=== PATIENT | female | born 1960 | race Caucasian/White ===

== ENCOUNTER → 2017-08-13 10:08 | Outpatient (CLI) | payer SELFPAY ==
--- NOTE | 2017-08-13 10:22 | RAD_ITS ---
STUDY: X-RAY - LEFT HAND REASON FOR EXAM: Female, 56 years old. Inflammatory polyarthropathy. TECHNIQUE: 3 view(s) of the hand. COMPARISON: None. FINDINGS: There is joint space narrowing of the radiocarpal articulation consistent with degenerative arthrosis. Erosive changes involving the ulnar styloid. This is suggestive of an old avulsion fracture. Normal visualized carpal bones. Normal carpal articulations Normal carpometacarpal articulation of the thumb. Normal second through fifth carpometacarpal joints. Erosive changes involving the distal portion of the third metacarpal. Normal metacarpophalangeal joint of the thumb. Joint space narrowing and subluxation of the first metacarpophalangeal joint. Normal proximal and distal phalanges of the thumb. Marked degree of joint space narrowing with erosive changes at the third metacarpophalangeal joint. There is diffuse articular joint space narrowing of the proximal and distal interphalangeal joints of the second through fifth fingers, but without erosive changes or periarticular soft tissue swelling. Flexion deformity at the distal interphalangeal joint of the fourth digit. Soft tissue swelling. 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 Flexion deformity of the distal interphalangeal joint of the fourth digit. Soft tissue swelling. Electronically Signed: Fili Ferrer MD at 15:40 EDT Tel [phone], Service support ,
--- NOTE | 2017-08-13 10:22 | RAD_ITS ---
STUDY: X-RAY - RIGHT HAND REASON FOR EXAM: Female, 56 years old. Inflammatory polyarthropathy TECHNIQUE: 3 view(s) of the hand. COMPARISON: None. FINDINGS: Normal radiocarpal articulation. Normal distal radioulnar joint. Normal visualized carpal bones. Normal carpal articulations Normal carpometacarpal articulation of the thumb. Normal second through fifth carpometacarpal joints. Normal metacarpi. Normal metacarpophalangeal joint of the thumb. Normal interphalangeal joint of the thumb. Normal proximal and distal phalanges of the thumb. Normal metacarpophalangeal joints of the second through fifth fingers. There is joint space narrowing and juxta-articular erosions of the proximal interphalangeal joint of the fourth digit. Questionable similar juxta-articular erosions noted within the second digit with preservation of the joint space. Distal interphalangeal joints are unremarkable. Soft tissue swelling of the proximal second and fourth digits. RAD/Hand Min 3 Views IMPRESSION: Joint space narrowing with juxta-articular erosions of the proximal interphalangeal joint of the ring finger with associated proximal soft tissue swelling, suggesting an inflammatory arthropathy, with similar change, to a lesser degree, seen within the second digit. Electronically Signed: Aleksander Mckeon MD at 3:37 EDT Tel , Service support ,
--- NOTE | 2017-08-13 10:35 | RAD_ITS ---
STUDY: X-RAY - PELVIS REASON FOR EXAM: Female, 56 years old. Inflammatory polyarthropathy. TECHNIQUE: One view of the pelvis was obtained. COMPARISON: None. FINDINGS: There is a non-specific bowel gas pattern. Normal visualized soft tissue structures. There is narrowing with cortical sclerosis and osteophyte formation of the sacroiliac joint consistent with degenerative osteoarthritic changes. Normal visualized bilateral superior and inferior pubic rami. There is narrowing with sclerosis of the pubic symphysis. Normal ischial tuberosities. Normal visualized right femoral head. Normal right acetabulum. There is mild articular joint space narrowing of the right hip. Normal visualized left femoral head. Normal left acetabulum. There is mild articular joint space narrowing of the left hip. RAD/Pelvis 1 or 2 Views IMPRESSION: Degenerative changes of the sacroiliac joints worse on the left side. Mild degree of osteoarthritis of the hip joints bilaterally. Electronically Signed: Fili Ferrer MD at 14:32 EDT Tel [phone], Service support ,
[2017-08-13 12:16] LABS: Erythrocyte Sedimentation Rate 56 mm/hr (0-30)
[2017-08-13 12:17] LABS: Absolute Lymphocyte Count 1.21 X10^3/ul (0.83-4.51); Absolute Neutrophil Count 5.6 X10^3/uL (2.0-7.7); Basophil# 0.04 X10^3/uL; Basophil% 0.5 % (0-1); Eosinophil# 0.12 X10^3/uL; Eosinophils% 1.4 % (0-5); Hemoglobin 12.8 g/dl (12.0-15.0); Lymphocyte # 1.21 X10^3/ul (4.0); Lymphocyte % 14.5 % (19-41); Mean Corp Hgb Conc 31.2 g/gl (32-36); Mean Corpuscular Hgb 25.7 pg (27.0-32.0); Mean Corpuscular Volume 82.2 fL (81-99); Mean Platelet Vol. 8.7 fl (6.2-12.0); Monocyte# 1.28 X10^3/uL; Monocyte% 15.3 % (0-10); Neutrophil # 5.64 X10^3/uL (2.7-7.7); Neutrophil % 67.5 % (47-70); POSITIVE COUNT NO; POSITIVE DIFFERENTIAL NO; POSITIVE MORPHOLOGY NO; Platelet Count 280 K/mm3 (150-450); RBC Distribution Width CV 15.5 % (11.6-14.6); RBC Distribution Width SD 46.1 fl (35.1-43.9); Red Blood Count 4.99 M/mm3 (4.2-5.4); White Blood Count 8.4 K/mm3 (4.4-11.0)
[2017-08-13 12:58] LABS: ALB/GLOB Ratio 0.5 RATIO (0.9-2.4); AST(SGOT) 13 U/L (15-37); Alanine Aminotransfer ALT/SGPT 23 U/L (13-56); Albumin, Serum 3.4 g/dL (3.2-5.0); Alkaline Phosphatase 117 U/L (45-117); Anion Gap 9 (5-15); BUN 42 mg/dL (7-18); BUN/Creat Ratio 15.9 RATIO (10-20); Calcium,Total 14.6 mg/dL (8.5-10.1); Chloride 101 mmol/L (98-107); Creatinine, Serum 2.64 mg/dL (0.55-1.02); EST Glomerular Filtration Rate 20 mL/min (>60); Est Glom Filt Rate - Afr Amer 24 mL/min (>60); Globulin 6.4 g/dL (2.2-4.2); Glucose 85 mg/dL (74-106); Potassium 4.3 mmol/L (3.5-5.1); Protein, Total 9.8 g/dL (6.4-8.2); Rheumatoid Factor < 10.0 IU/mL (<15); Sodium Level 135 mmol/L (136-145)
[2017-08-13 14:09] LABS: PTHIN 34.3 pg/mL (18.4-80.1)
[2017-08-14 14:43] LABS: ANTINUCLEAR ANTIBODIES DIRECT Negative (Negative)
[2017-08-15 11:41] LABS: CCP IgG Antibodies 11 units (0-19); HEPATITIS B SURFACE AG Negative (Negative); Hep B Surface Antibodies Non Reactive (.); Hep C Antibodies <0.1 s/co ratio (0.0-0.9)
== END ==
PROVIDERS: Family Provider Family Medicine; PCP Family Medicine; Visit Provider Internal Medicine Rheumatology
DX: M06.4 Inflammatory polyarthropathy (principal); I10 Essential (primary) hypertension
CPT/HCPCS: 36415; 72170; 73130; 80053; 83970; 85025; 85652; 86038; 86140; 86200; 86431; 86706; 86803; 87340

== ENCOUNTER → 2017-09-19 11:28 | Outpatient (CLI) | payer OTHER, SELFPAY ==
[2017-09-19 14:18] LABS: Absolute Lymphocyte Count 0.64 X10^3/ul (0.83-4.51); Absolute Neutrophil Count 5.1 X10^3/uL (2.0-7.7); Basophil# 0.02 X10^3/uL; Basophil% 0.3 % (0-1); Eosinophil# 0.04 X10^3/uL; Eosinophils% 0.6 % (0-5); Hematocrit 35.1 % (37-47); Hemoglobin 10.8 g/dl (12.0-15.0); Lymphocyte # 0.64 X10^3/ul (4.0); Lymphocyte % 9.4 % (19-41); Mean Corp Hgb Conc 30.8 g/gl (32-36); Mean Corpuscular Hgb 25.7 pg (27.0-32.0); Mean Corpuscular Volume 83.6 fL (81-99); Mean Platelet Vol. 8.5 fl (6.2-12.0); Monocyte# 0.98 X10^3/uL; Monocyte% 14.4 % (0-10); Neutrophil # 5.07 X10^3/uL (2.7-7.7); Neutrophil % 74.4 % (47-70); Platelet Count 181 K/mm3 (150-450); RBC Distribution Width CV 15.4 % (11.6-14.6); RBC Distribution Width SD 47.3 fl (35.1-43.9); White Blood Count 6.8 K/mm3 (4.4-11.0)
[2017-09-19 14:19] LABS: POSITIVE COUNT NO; POSITIVE DIFFERENTIAL NO; POSITIVE MORPHOLOGY NO
[2017-09-19 15:45] LABS: ALB/GLOB Ratio 0.5 RATIO (0.9-2.4); AST(SGOT) 15 U/L (15-37); Alanine Aminotransfer ALT/SGPT 26 U/L (13-56); Albumin, Serum 2.8 g/dL (3.2-5.0); Alkaline Phosphatase 117 U/L (45-117); Anion Gap 11 (5-15); BUN 35 mg/dL (7-18); BUN/Creat Ratio 13.6 RATIO (10-20); Calcium,Total 14.4 mg/dL (8.5-10.1); Chloride 100 mmol/L (98-107); Creatinine, Serum 2.58 mg/dL (0.55-1.02); EST Glomerular Filtration Rate 20 mL/min (>60); Est Glom Filt Rate - Afr Amer 25 mL/min (>60); Globulin 5.6 g/dL (2.2-4.2); Glucose 98 mg/dL (74-106); Potassium 4.3 mmol/L (3.5-5.1); Protein, Total 8.4 g/dL (6.4-8.2); Sodium Level 136 mmol/L (136-145)
== END ==
PROVIDERS: Family Provider Family Medicine; PCP Family Medicine; Visit Provider Internal Medicine Rheumatology
DX: M06.4 Inflammatory polyarthropathy (principal); I10 Essential (primary) hypertension
CPT/HCPCS: 36415; 80053; 85025

== ENCOUNTER → 2017-11-21 11:06 | Outpatient (CLI) | payer OTHER, SELFPAY ==
[2017-11-21 12:17] LABS: Absolute Lymphocyte Count 0.64 X10^3/ul (0.83-4.51); Absolute Neutrophil Count 6.3 X10^3/uL (2.0-7.7); Basophil# 0.01 X10^3/uL; Basophil% 0.1 % (0-1); Differential Indicated SCAN CRITERIA MET; Eosinophil# 0.03 X10^3/uL; Eosinophils% 0.3 % (0-5); Hematocrit 27.9 % (37-47); Hemoglobin 8.6 g/dl (12.0-15.0); Lymphocyte # 0.64 X10^3/ul (4.0); Lymphocyte % 7.2 % (19-41); Mean Corp Hgb Conc 30.8 g/gl (32-36); Mean Corpuscular Hgb 25.8 pg (27.0-32.0); Mean Corpuscular Volume 83.8 fL (81-99); Mean Platelet Vol. 8.7 fl (6.2-12.0); Monocyte# 1.88 X10^3/uL; Monocyte% 21.1 % (0-10); Neutrophil # 6.31 X10^3/uL (2.7-7.7); Neutrophil % 71.1 % (47-70); POSITIVE COUNT NO; POSITIVE DIFFERENTIAL YES; POSITIVE MORPHOLOGY NO; Platelet Count 179 K/mm3 (150-450); RBC Distribution Width CV 16.5 % (11.6-14.6); RBC Distribution Width SD 50.2 fl (35.1-43.9); Red Blood Count 3.33 M/mm3 (4.2-5.4); White Blood Count 8.9 K/mm3 (4.4-11.0)
[2017-11-21 12:30] LABS: ALB/GLOB Ratio 0.4 RATIO (0.9-2.4); AST(SGOT) 12 U/L (15-37); Alanine Aminotransfer ALT/SGPT 16 U/L (13-56); Albumin, Serum 2.3 g/dL (3.2-5.0); Alkaline Phosphatase 121 U/L (45-117); Anion Gap 14 (5-15); BUN 36 mg/dL (7-18); BUN/Creat Ratio 10.5 RATIO (10-20); Calcium,Total 12.2 mg/dL (8.5-10.1); Chloride 96 mmol/L (98-107); Creatinine, Serum 3.43 mg/dL (0.55-1.02); EST Glomerular Filtration Rate 15 mL/min (>60); Est Glom Filt Rate - Afr Amer 18 mL/min (>60); Globulin 5.8 g/dL (2.2-4.2); Glucose 119 mg/dL (74-106); Protein, Total 8.1 g/dL (6.4-8.2); Sodium Level 130 mmol/L (136-145)
== END ==
PROVIDERS: Family Provider Family Medicine; PCP Family Medicine; Visit Provider Internal Medicine Rheumatology
DX: M06.09 Rheumatoid arthritis without rheumatoid factor, multiple sites (principal); Z79.899 Other long term (current) drug therapy; I10 Essential (primary) hypertension
CPT/HCPCS: 36415; 80053; 85025

== ENCOUNTER 2017-12-13 09:02 | Inpatient (IN) | payer OTHER, SELFPAY ==
[2017-12-13] VITALS (13 sets, daily range): BP systolic 105–139; BP diastolic 54–82; PULSE 90–109; RESP 14–22; TEMP 36.4–37.3; O2SAT 92–100; BMI 36.3; BMI 35.1
--- NOTE | 2017-12-13 09:25 | ED.VISSUMM ---
- ER Visit Summary Date of Service: 12/13/17 Chief Complaint: Weak and vomiting History of Present Illness: The patient is a 57 F who presents with weakness and vomiting. History is limited. When asked questions the patient just shrugs and nods to family members. She will answer very few direct questions with one-word answers. Family reports that she has had intermittent weakness and vomiting for a while. It is difficult to ascertain the duration of symptoms but they note that this is been worse over the past month. She had vomiting last weekend. She began vomiting again last night. They report 6-8 episodes of emesis over the last week. No diarrhea. The patient denies pain. No fevers. Family does note that she has had outpatient labs and has had problems with low sodium and high calcium and that they are not sure why but she has been referred to a hollow handle knife assembler. She saw her primary care physician last week and had labs at that time. Physical Examination: Afebrile heart rate 109 Examination limited as the patient is somewhat uncooperative. She would not roll onto her back and lay flat for proper exam. Heart regular rate and rhythm Lungs are clear Abdomen soft nontender and nondistended Generalized weakness no focal or lateralizing neurological deficits Alert Test Results: EKG shows sinus rhythm at a rate of 99. Laboratory studies are notable for hemoglobin of 7.0. Sodium 125, bicarb 17, BUN of 53, creatinine 2.96, calcium 11.9. Liver function shows total bilirubin 1.1 and alkaline phosphatase 377. Chest x-ray showed hilar lymphadenopathy and radiology recommended a CT of the chest. CT of the chest showed bulky lymph nodes throughout the mediastinum and moderate to severe splenomegaly. CT the head showed chronic changes only. Emergency Department Course and Treatment: Patient has had progressively worsening anemia. She denies any bright red blood per rectum or melena. Hemoccult was negative. She was given 1 unit of packed red blood cells after informed consent with discussion of risks and benefits. Her CT is concerning for lymphoma or leukemia although her total white blood cell count is normal. I do feel she will need admitted for further workup. I spoke to the hospitalist who agreed to admit. I have placed a call for consult to hematology/oncology but have not yet heard back. Treatment Plan: [] Disposition: Admit Impression: Anemia Renal insufficiency Hilar adenopathy Hyponatremia Hypercalcemia Splenomegaly This note was generated with Dragon dictation software. It may contain incorrect words, spelling, and punctuation that were not noted in review of the chart prior to signing ED Disposition - Plan for ED Patient: Chief Complaint: Weakness Referrals: Colton Ramachandran [Primary Care Provider] -
--- NOTE | 2017-12-13 09:28 | ED.DCSUM_ITS ---
- ER Visit Summary Date of Service: 12/13/17 Chief Complaint: Weak and vomiting History of Present Illness: The patient is a 57 F who presents with weakness and vomiting. History is limited. When asked questions the patient just shrugs and nods to family members. She will answer very few direct questions with one-word answers. Family reports that she has had intermittent weakness and vomiting for a while. It is difficult to ascertain the duration of symptoms but they note that this is been worse over the past month. She had vomiting last weekend. She began vomiting again last night. They report 6-8 episodes of emesis over the last week. No diarrhea. The patient denies pain. No fevers. Family does note that she has had outpatient labs and has had problems with low sodium and high calcium and that they are not sure why but she has been referred to a intermediate school teacher. She saw her primary care physician last week and had labs at that time. Physical Examination: Afebrile heart rate 109 Examination limited as the patient is somewhat uncooperative. She would not roll onto her back and lay flat for proper exam. Heart regular rate and rhythm Lungs are clear Abdomen soft nontender and nondistended Generalized weakness no focal or lateralizing neurological deficits Alert Test Results: EKG shows sinus rhythm at a rate of 99. Laboratory studies are notable for hemoglobin of 7.0. Sodium 125, bicarb 17, BUN of 53, creatinine 2.96, calcium 11.9. Liver function shows total bilirubin 1.1 and alkaline phosphatase 377. Chest x-ray showed hilar lymphadenopathy and radiology recommended a CT of the chest. CT of the chest showed bulky lymph nodes throughout the mediastinum and moderate to severe splenomegaly. CT the head showed chronic changes only. Emergency Department Course and Treatment: Patient has had progressively worsening anemia. She denies any bright red blood per rectum or melena. Hemoccult was negative. She was given 1 unit of packed red blood cells after informed consent with discussion of risks and benefits. Her CT is concerning for lymphoma or leukemia although her total white blood cell count is normal. I do feel she will need admitted for further workup. I spoke to the hospitalist who agreed to admit. I have placed a call for consult to hematology /oncology but have not yet heard back. Treatment Plan: [] Disposition: Admit Impression: Anemia Renal insufficiency Hilar adenopathy Hyponatremia Hypercalcemia Splenomegaly This note was generated with Dragon dictation software. It may contain incorrect words, spelling, and punctuation that were not noted in review of the chart prior to signing ED Disposition - Plan for ED Patient: Chief Complaint: Weakness Referrals: Colton Ramachandran [Primary Care Provider] -
--- NOTE | 2017-12-13 09:29 | CT_ITS ---
STUDY: CT BRAIN WITHOUT CONTRAST REASON FOR EXAM: Female, 57 years old. Increasing weakness RADIATION DOSAGE (If Supplied By Facility): CTDIvol = ( 44.99 ) mGy, DLP = ( 829.85 ) mGycm TECHNIQUE: Transaxial CT imaging of the brain was performed without administration of intravenous contrast material. Individualized dose optimization techniques were used for this CT. COMPARISON: None. FINDINGS: Normal soft tissue structures. Normal calvarium. There is mild cerebral atrophy with widening of the extra-axial spaces and ventricular dilatation. There are areas of decreased attenuation within the white matter tracts of the supratentorial brain, consistent with microvascular disease changes. Normal basal ganglia and thalami. Normal brainstem. There is mild cerebellar atrophy. There is no intracranial hemorrhage. There are no findings of an acute ischemic infarction. Normal visualized paranasal sinuses. CT/Brain/Head without Contrast IMPRESSION: Chronic involutional changes of the brain. No hemorrhage. Electronically Signed: Kj York MD at 10:54 EDT , Service support ,
--- NOTE | 2017-12-13 09:29 | EKG12_ITS ---
Test Reason : WEAKNESS Blood Pressure : / mmHG Vent. Rate : 099 BPM Atrial Rate : 099 BPM P-R Int : 146 ms QRS Dur : 082 ms QT Int : 322 ms P-R-T Axes : -14 -40 060 degrees QTc Int : 413 ms Normal sinus rhythm Left axis deviation Inferior infarct , age undetermined Anterolateral infarct , age undetermined Abnormal ECG Confirmed by JANE ODELL, NANCY ([id number]), supervising editor trailer ROSALBA LAWRENCE ([id number]) on 12/17/2017 8:50:44 AM Referred By: MARIZA Confirmed By:NANCY LARA MD
--- NOTE | 2017-12-13 09:39 | NURSING ---
NO OLD EKGS
[2017-12-13] MEDS: 0.9% Normal Saline 1,000 ML 1000 ML IV (09:52)
[2017-12-13 09:58] LABS: Hematocrit 22.4 % (37-47); Mean Corp Hgb Conc 31.3 g/gl (32-36); Mean Corpuscular Hgb 24.9 pg (27.0-32.0); Mean Corpuscular Volume 79.7 fL (81-99); Platelet Count 304 K/mm3 (150-450); RBC Distribution Width CV 17.3 % (11.6-14.6); RBC Distribution Width SD 48.2 fl (35.1-43.9); Red Blood Count 2.81 M/mm3 (4.2-5.4); White Blood Count 8.3 K/mm3 (4.4-11.0)
--- NOTE | 2017-12-13 10:04 | RAD_ITS ---
STUDY: X-RAY CHEST REASON FOR EXAM: Female, 57 years old. Weakness. TECHNIQUE: Single AP portable view of the chest. COMPARISON: None. FINDINGS: The lungs are clear and expanded. There is no demonstrated pleural abnormality. Normal size heart. There is bilateral hilar enlargement compatible with lymphadenopathy. Normal visualized pulmonary arteries. Normal visualized aortic arch and descending thoracic aorta. There are diffuse degenerative changes of the visualized thoracic spine. Normal visualized ribs, clavicles, and shoulders. There is no demonstrated abnormality of the visualized soft tissue structures of the upper abdomen. RAD/Chest 1 View (Portable) IMPRESSION: Hilar lymphadenopathy suggesting sarcoidosis or lymphoma. CT scan recommended for further evaluation. Electronically Signed: Kj York MD at 10:55 EDT , Service support ,
[2017-12-13 10:05] LABS: Differential Indicated MANUAL DIFF; POSITIVE COUNT YES; POSITIVE DIFFERENTIAL YES; POSITIVE MORPHOLOGY YES
[2017-12-13 10:12] LABS: ALB/GLOB Ratio 0.3 RATIO (0.9-2.4); AST(SGOT) 28 U/L (15-37); Alanine Aminotransfer ALT/SGPT 32 U/L (13-56); Albumin, Serum 1.8 g/dL (3.2-5.0); Alkaline Phosphatase 377 U/L (45-117); Anion Gap 13 (5-15); BUN 53 mg/dL (7-18); BUN/Creat Ratio 17.9 RATIO (10-20); Calcium,Total 11.9 mg/dL (8.5-10.1); Chloride 95 mmol/L (98-107); Creatinine, Serum 2.96 mg/dL (0.55-1.02); EST Glomerular Filtration Rate 17 mL/min (>60); Est Glom Filt Rate - Afr Amer 21 mL/min (>60); Estimated Creatinine Clearance 19.63 ml/min; Globulin 5.2 g/dL (2.2-4.2); Glucose 104 mg/dL (74-106); Potassium 3.7 mmol/L (3.5-5.1); Sodium Level 125 mmol/L (136-145)
[2017-12-13 10:22] LABS: Lymphocyte 6 % (19-41); Monocyte 8 % (0-10); Neutrophil-Segmented 86 % (47-70); Total Cells Counted 100 (MANUAL DIFF)
[2017-12-13 10:23] LABS: Hypochromasia 2+; Microcytosis 1+; Platelet Estimate ADEQUATE (ADEQ); Polychromasia 1+
[2017-12-13 10:24] LABS: Absolute Neutrophil Count 7.2 X10^3/uL (2.0-7.7)
--- NOTE | 2017-12-13 11:03 | CT_ITS ---
STUDY: CT CHEST WITHOUT CONTRAST REASON FOR EXAM: Female, 57 years old. Adenopathy increasing weakness RADIATION DOSAGE (If Supplied By Facility): CTDIvol = ( 20.15 ) mGy, DLP = ( 664.56 ) mGycm TECHNIQUE: Transaxial imaging was performed without the administration of intravenous contrast material. Multiplanar coronal and sagittal images were reformatted. Individualized dose optimization techniques were used for this CT. COMPARISON: December 13, 2017 chest x-ray FINDINGS: There is minimal lower lobe atelectasis. There is no focal consolidation. There is no demonstrated pleural abnormality. There is borderline cardiac enlargement are visualized coronary calcifications. There are bulky lymph nodes throughout the mediastinum. These range in size from 5 mm to 2.2 x 2.1 x 1.1 cm in the precarinal region. There is bulky lymphadenopathy within the right greater than left hilum with lymph nodes surrounding the right vascular structures and bronchial structures. There are numerous lymph nodes in course and the posterior mediastinum. There is a subcarinal lymph node measuring 3.2 x 2.2 cm. In the upper abdomen there are multiple periaortic lymph nodes. There is a lymph node seen measuring 1.2 cm at the level of the left adrenal gland. Normal unenhanced pulmonary arteries. Is partial calcification of the aorta. There are multi-level degenerative changes of the thoracic spine. There is moderate to severe enlargement of the spleen measuring 15.8 x 14.5 cm. There is a partially visualized stone within the gallbladder measuring 1.7 cm. The liver is mildly enlarged. The liver appears mildly inhomogeneous allowing for artifact in the study. The kidneys are partially visualized is a calcification in the upper pole of the left kidney. CT/Chest without Contrast IMPRESSION: Too numerous to count bulky lymph nodes throughout the mediastinum subcarina region and right root of the left hilum as well as in the upper abdomen. This accompanies moderate to severe splenomegaly. This raises concern for neoplastic etiology such as lymphoma leukemia possible metastatic disease or widespread infection. Cholelithiasis. Electronically Signed: Sosa Schmid MD at 12:44 EDT Tel , Service support ,
--- NOTE | 2017-12-13 13:06 | NURSING ---
HOSPITALIST PAGED ONCOLOGY PAGED
--- NOTE | 2017-12-13 13:21 | HP.PCM_ITS ---
Problem List (1) Severe anemia Status: Acute (2) Hyponatremia Status: Acute (3) Hypercalcemia Status: Acute (4) Hypertension Status: Chronic Qualifiers: Hypertension type: essential hypertension Qualified Code(s): I10 - Essential (primary) hypertension (5) Rheumatoid arthritis Status: Chronic Qualifiers: Rheumatoid factor presence: unspecified presence Laterality: bilateral History of Present Illness Date of Admission: 12/13/17 Chief Complaint: Weakness, nausea, vomiting The patient is a 57 year old F with past medical history of chronic rheumatoid arthritis, on leflunomide and prednisone, hypertension, who has been unwell since March 2017. Patient had established with a water resources business segment leader in July 2017 but subsequently he was found to be hyponatremic. They do not remember what workup was done for that. Patient was also found to be hypercalcemic for which she is not on calcium or vitamin D. Of note is that review of records in [facility] shows that calcium had come down from 14.4 to corrected calcium of 13.6 today. Patient was recently in [facility] 6-8 weeks ago, stayed for 3 days, was given IV fluids. Family cannot remember what the workup was. We would ask for records from [facility]. Since her discharge patient has been very weak, totally cared for by the and children. She does not do much. Denied any bleeding from any orifices, denies chest pain no dizziness or shortness of breath. She has been having nausea with vomiting that has been intermittent. Had several episodes a week ago. Vomiting resumed yesterday and has been progressive today and they decided to bring her to the hospital. On arrival to the ED her temperature was 90 7.8F, heart rate is 109, blood pressure 105, 54, respiratory to 16, SPO2 is 90% on room air. Her white cell count was 8.2, hemoglobin 7.0, platelet count 204, sodium 135, potassium 3.7, chloride 97, bicarbonate was 17, anion gap was 13, BUN of 53, creatinine was 2.96, calcium was 7.9, albumin 1.8, corrected calcium was 13.6 Admitting chest x-ray was suggestive of hilar lymphadenopathy. Admitting CT scan of the chest showed too numerous to count bulky lymph node throughout the mediastinal, subcarina, right to the left hilum as well as upper abdomen with associated hepatosplenomegaly, moderate to severe. Since being admitted, he was transfused 1 unit packed RBC in the ED. 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 Denies: Chills, Fever, Malaise, Weight Change, Fatigue Eyes: Denies: Blurred vision, Cataracts, Conjunctivae Inflammation, Pain, Redness, Vision Change HEENT: Denies: Difficulty Hearing, Difficulty Swallowing, Head Aches, Hearing Changes, Sinus Congestion, Sinus Drainage, Sore Throat Cardiovascular: Reports: Light Headedness. Denies: Chest Pain, Claudication, Orthopnea, Palpitations, Paroxysmal Noc. Dyspnea Respiratory: Reports: Shortness of breath upon exertion. Denies: Cough, Hemoptysis, Shortness of breath at rest, Sputum production, Wheezing Gastrointestinal: Denies: Abdominal Pain, Constipation, Hematemesis, Hematochezia, Nausea, Vomiting Genitourinary: Denies: Dysuria, Frequency, Incontinence Gynecological: Denies: Breast symptoms, Excessively long or heavy periods Musculoskeletal: Denies: Joint Pain, Joint stiffness, Joint swelling, Joint Tenderness Skin: Denies: Rash, Wounds Neurological: Denies: Difficulty swallowing, Focal weakness, Numbness, Tingling Psychiatric: Denies: Anxiety, Depression, Homicidal Ideations, Suicidal Ideations Hematologic/ Lymphatic: Denies: Easy Bruising, Easy Bleeding VTE Information - Inpt Only VTE Present on Admission: No VTE Pharm Prophylaxis ordered?: Yes Patient Problems: Active and Suspected Problems Severe anemia (Acute) Hyponatremia (Acute) Hypercalcemia (Acute) - Physical Exam General: Alert, Oriented x3, Cooperative, - - looks very unwell, pale, not jaundiced HEENT: Atraumatic, PERRLA, EOMI, Normocephalic Oral: Dry Mucosa Neck: Supple, No JVD, Negative Carotid Bruits Lungs: Clear to auscultation, Normal air movement Cardiovascular: Regular rate, Regular Rhythm, Normal S1, Normal S2, No murmurs Abdomen: Bowel Sounds Present, Soft, Non Tender, Non-Distended, No Hepato- splenomegaly Extremities: No edema Skin: No rashes, No breakdown Musculoskeletal: No Tenderness to Palpation of Joints or Extremities Lymphatic: No Cervical, Supraclavicular, or Inguinal Adenopathy Neurological: Cranial nerves II-XII grossly intact, Neuro grossly intact Psych/Mental Status: Appropriate, Flat Affect Vital Signs Temp Pulse Resp BP Pulse Ox 97.8 F 95 18 109/58 L 97 12/13/17 09:03 12/13/17 12:33 12/13/17 12:33 12/13/17 12:33 12/13/17 12:33 Oxygen Delivery Method Room Air Weight: 102.058 kg Body Mass Index (BMI) 36.3 Microbiology Past 72 Hours 12/13/17 11:23 Stool Occult Blood (ADRIANO) - Final Stool Laboratory Tests Past 24 Hrs 12/13/17 12/13/17 12/13/17 09:46 09:46 11:50 WBC 8.3 RBC 2.81 L Hgb 7.0 L Hct 22.4 L MCV 79.7 L MCH 24.9 L MCHC 31.3 L RDW 17.3 H RDW Differential 48.2 H Plt Count 304 MPV 8.0 Neut % (Auto) Not Reportable Absolute Neuts (auto) 7.2 Absolute Lymphs (auto) 0.50 L Total Counted 100 Neutrophils % (Manual) 86 H Lymphocytes % (Manual) 6 L Monocytes % (Manual) 8 Diff Path Review May foll Platelet Estimate ADEQUATE Polychromasia 1+ Hypochromasia 2+ Microcytosis 1+ Sodium 125 L Potassium 3.7 Chloride 95 L Carbon Dioxide 17.0 L Anion Gap 13 BUN 53 H Creatinine 2.96 H Estim Creat Clear Calc 19.63 Est GFR (MDRD) Af Amer 21 L Est GFR (MDRD) Non-Af 17 L BUN/Creatinine Ratio 17.9 Glucose 104 Calcium 11.9 H Total Bilirubin 1.10 H AST 28 ALT 32 Alkaline Phosphatase 377 H Total Protein 7.0 Albumin 1.8 L Globulin 5.2 H Albumin/Globulin Ratio 0.3 L Blood Type A POSITIVE Antibody Screen NEGATIVE Crossmatch See Detail Assessment/Plan All Active Problems Severe anemia (Acute) Hyponatremia (Acute) Hypercalcemia (Acute) 57 year old F with past medical history of chronic rheumatoid arthritis, on leflunomide and prednisone, hypertension, who has been unwell since March 2017. Stent was recently admitted and discharged from [facility] 8 weeks ago. 1. Severe anemia, unclear etiology, hepatosplenomegaly on CT, will get stool for guaiac, check iron stores, retic count, status post 1 unit packed RBC, repeat CBCD. 2. Lymphadenopathy, prominent to the mediastinal and upper abdomen, concerning for possible lymphoma, sarcoidosis, will get LDH, LUCIA, oncology consult, patient might need IR CT-guided biopsy of the lymph nodes or possibly cardiothoracic referral for lymph node biopsy. Discussed with Dr. Fisher. 3. Hypercalcemia, likely malignancy related, not on calcium, not on vitamin D, concerning for possible multiple myeloma, will get serum immunoglobulins, skeletal survey, PTH, vitamin D 4. Hyponatremia, acute on chronic, likely related to SIADH from possible malignancy versus dehydration, will give IV fluids, 5. RISA on CKD4, concerning for dehydration versus possible multiple myeloma, IV fluids, recheck BMP, if creatinine continues to worsen, will consult nephrology 6. Non-gap anion gap metabolic acidosis, likely related to chronic vomiting vs CKD, will trend BMP 7. RA, on leflunomide and prednisone, will hold leflunomide for now 8. Hypertension, controlled, continue on home regimen. 9. DVT prophylaxis-SCDs -will start on heparin if FOBT comes back negative Code Visit Inpatient E&M: 88451 Init Hosp L3
--- NOTE | 2017-12-13 13:25 | NURSING ---
PCU WEAKNESS PAINTSIL
--- NOTE | 2017-12-13 14:10 | NURSING ---
patient admitted to PCU, PRBC still infusing, no transfusion reaction noted at this time.
[2017-12-13] MEDS: 0.9% Normal Saline 1,000 ML 100 ML IV (15:01)
[2017-12-13 17:56] LABS: Absolute Lymphocyte Count 0.81 X10^3/ul (0.83-4.51); Absolute Neutrophil Count 7.2 X10^3/uL (2.0-7.7); Eosinophil# 0.05 X10^3/uL; Eosinophils% 0.6 % (0-5); Hemoglobin 7.9 g/dl (12.0-15.0); Lymphocyte # 0.81 X10^3/ul (4.0); Lymphocyte % 9.1 % (19-41); Mean Corp Hgb Conc 31.6 g/gl (32-36); Mean Corpuscular Hgb 25.3 pg (27.0-32.0); Mean Corpuscular Volume 80.1 fL (81-99); Mean Platelet Vol. 8.1 fl (6.2-12.0); Monocyte# 0.64 X10^3/uL; Monocyte% 7.2 % (0-10); Neutrophil # 7.17 X10^3/uL (2.7-7.7); Neutrophil % 80.7 % (47-70); Platelet Count 265 K/mm3 (150-450); RBC Distribution Width CV 17.3 % (11.6-14.6); RBC Distribution Width SD 50.9 fl (35.1-43.9); Red Blood Count 3.12 M/mm3 (4.2-5.4); White Blood Count 8.9 K/mm3 (4.4-11.0)
[2017-12-13 17:57] LABS: Differential Indicated SCAN CRITERIA MET; POSITIVE COUNT YES; POSITIVE DIFFERENTIAL NO; POSITIVE MORPHOLOGY YES
[2017-12-13 18:28] LABS: Anion Gap 13 (5-15); BUN 50 mg/dL (7-18); BUN/Creat Ratio 18.1 RATIO (10-20); Calcium,Total 11.7 mg/dL (8.5-10.1); Chloride 98 mmol/L (98-107); Creatinine, Serum 2.77 mg/dL (0.55-1.02); EST Glomerular Filtration Rate 19 mL/min (>60); Est Glom Filt Rate - Afr Amer 23 mL/min (>60); Estimated Creatinine Clearance 20.98 ml/min; Ferritin 5487 ng/mL (8-252); Glucose 88 mg/dL (74-106); Iron 28 ug/dL (50-170); Iron Binding Capacity,Total 141 ug/dL (250-450); LDH 147 U/L (84-246); PERCENT IRON SATURATION 19.9 % (15.0-55.0); Potassium 3.8 mmol/L (3.5-5.1); Sodium Level 129 mmol/L (136-145)
[2017-12-13 18:32] LABS: Anisocytosis RARE; Burr Cells RARE; Hypochromasia 1+; Microcytosis 1+; Platelet Estimate ADEQUATE (ADEQ); Polychromasia RARE
--- NOTE | 2017-12-13 18:36 | CT_ITS ---
STUDY: CT ABDOMEN AND PELVIS WITHOUT CONTRAST REASON FOR EXAM: Female, 57 years old. Weakness and nausea RADIATION DOSAGE (If Supplied By Facility): CTDIvol = ( 19.60 ) mGy, DLP = ( 1459.85 ) mGycm TECHNIQUE: Transaxial images were obtained from the dome of the diaphragm to the symphysis pubis with oral contrast, and without intravenous contrast. Sagittal and coronal images were reconstructed. Individualized dose optimization techniques were used for this CT. COMPARISON: None. FINDINGS: The visualized lung bases are unremarkable. The visualized portions of the heart are within normal limits. There is hepatomegaly with diffuse hepatic enlargement. There are multiple gallstones. There is moderate splenomegaly. There is diffuse atrophy of the pancreas. Normal bilateral adrenal glands. Diffusely echogenic appearance of the renal calyces bilaterally. Parapelvic cyst on the right measuring 3.0 x 2.8 cm. No evidence of acute obstruction. There is a small hiatal hernia. Normal small intestine. There are multiple colonic diverticula consistent with diverticulosis. The appendix is visualized and appears normal. There is diffuse atherosclerotic calcification of the abdominal aorta, without a demonstrated aneurysm. Normal inferior vena cava. Multiple prominent retroperitoneal lymph nodes are noted. Nonspecific in nature. Janny hepatis lymph nodes are noted as well. Normal urinary bladder. There is atrophy of the uterus. Normal abdominal wall. There are diffuse degenerative changes of the visualized lumbar spine. CT/Abdomen/Pel W ORAL Cont Only IMPRESSION: 1. No acute findings of the abdomen or pelvis 2. Hepatomegaly and splenomegaly 3. Hyperdense appearance of the bilateral renal calyces without obstruction 4. Numerous retroperitoneal and janny hepatis lymph nodes. Nonspecific however, malignancy is not excluded. Consider PET/CT to further evaluate. Electronically Signed: Raghu Cabello DO at 21:46 EDT Tel , Service support ,
--- NOTE | 2017-12-13 18:41 | ONC.CONS.INP ---
Consult Referring Physician: Dr. Maddy Corona Consult Results: Mediastinal adenopathy. Subjective Date of Service:: 12/13/17 Chief Complaint: Asked to see pt for mediastinal adenopathy. History of Present Illness: 57 year old F was diagnosed with rheumatoid arthritis about [address] Yadira Jerry. She was started on leflunomide and prednisone. She came to the hospital because of general weakness, nausea and vomiting. She was found to have anemia, hypercalcemia, hyponatremia, with mediastinal adenopathy. CT scan of the chest on 12/13/2017 showed numerous to count bulky lymph nodes throughout the mediastinal, subcarinal, right and left hilar areas as well as upper abdomen with associated hepatosplenomegaly, moderate to severe. She was transfused 1 unit packed RBC in the ED. Past Medical History: Chronic Problems Hypertension (Chronic) Rheumatoid arthritis (Chronic) Lymphadenopathy, mediastinal (Chronic) Hepatosplenomegaly (Chronic) Past Medical/Surgical History: Past Medical History - Most Recent Inpatient Visit Past Medical History Start: 12/13/17 14:36 Text: Status: Complete Freq: ONCE Protocol: Document 12/13/17 14:36 EEB (Rec: 12/13/17 14:47 EEB [id number]) BMI Required to complete PMH What is Patient's BMI 36.3 Neurologic Medical History Hx Stroke/TIA No Hx Dementia/Alzheimer's No Hx Parkinson's Disease No Hx Seizures No Hx Multiple Sclerosis No Hx Migraines No Cardiac Medical History VTE Present on Admission No Hx of Deep Vein Thrombosis/VTE/PE No Hx Hypertension Yes Hx Chest Pain/Angina No Hx Heart Attack No Hx Cardiac Surgery/Stents/Etc. No Hx Heart Failure No Hx Pacemaker/AICD No Hx Irregular Heartbeat and/or Afib No Hx Anticoagulant Therapy No Query Text:(Coumadin, Aspirin, Plavix, Xarelto, etc.) Hx Pain in Legs when Walking/Leg Cramps No Respiratory Medical History Hx COPD No Hx Emphysema No Hx Smoking No Smoking Status Never smoker Hx Tobacco Use in last 12 months No Hx Sleep Apnea No Do you snore loudly (louder than talking No or can be heard through closed doors)? Do you often feel tired/ fatigued/ No sleepy during daytime? Has anyone observed you stop breathing No during sleep? STOP Results Negative GI Medical History Hx Ulcer No Hx Hepatitis No Hx Cirrhosis No Hx GI Bleed No Hx Unplanned Weight Loss Yes Genitourinary Medical History Indwelling Catheter in Place on Arrival/ No Admission Hx Renal Disease Yes Hx Dialysis No Musculoskeletal History Hx Arthritis No Hx Rheumatoid Arthritis Yes Endocrine Medical History Hx Diabetes No Hx Thyroid Disease No Hematologic Medical History Hx of Blood Transfusion No Hx of Transfusion in last 3 Months No Ever experience any problems with No transfusion(s)? Hx of Preganancy in last 3 Months No Nurse Filling Out Transfusion & EBARNER Questions: Date: 12/13/17 Time: 14:46 Psycho/Social Medical History Hx Depression No Hx Anxiety No Hx Behavior Disorder No Hx Alcohol Use No Hx Substance Use No Other Medical History Hx Blood Disorders No Hx Anemia No Hx Cancer No Hx Drug Resistant Organism No Wound/Pressure Injury Present on Arrival No /Admission Query Text:If yes, chart assessment in Shift/Clinical Findings Central Line/PICC/VAD Present on Arrival No /Admission Antibiotics within last 7 days? No Methicillin Resistant Staphylococcus aureus Screening Active MRSA No Risk for Readmission Number of Risk Factors 2 At Risk for Readmission Patient is At Risk For Readmission Patient is eligible for Call Back Y Maternal Family History: No pertinent history Paternal Family History: No pertinent history - Social History Lives: With Family Smoking Status: Never smoker Tobacco Use: Non-smoker Alcohol: None Drugs: None Allergies/Adverse Reactions: Allergy/AdvReac Type Severity Reaction Status Date / Time No Known Allergies Allergy Verified 12/13/17 09:06 Review of Systems Constitutional:: Reports: Weakness, Fatigue. Denies: Fever, Sweats Cardiovascular:: Denies: Chest pain, Palpitations, Dyspnea on exertion, Orthopnea, PND, Shortness of breath Respiratory: Denies: Cough, Hemoptysis, Shortness of Breath, Wheezing Gastrointestinal:: Denies: Abdominal pain, Nausea, Vomiting, Diarrhea, Constipation, Hematochezia Genitourinary: Denies: Dysuria, Hematuria, 15, Flank pain Musculoskeletal:: Reports: Arthritis, Muscle weakness Skin: Denies: Rash, Skin Changes, Wounds Neurological:: Denies: Headache, Dizziness, Visual changes, Tinnitus, Hearing loss Psychiatric: Denies: Anxiety, Depression, Homicidal Ideations, Suicidal Ideations Vital Signs Height 5 ft 6 in Weight: 98.7 kg Weight in Pounds 217.6 lbs Pulse Ox 98 Temperature 98.9 F Pulse Rate 100 Respiratory Rate 16 Blood Pressure 135/70 Blood Pressure Position Semi-Fowlers - Physical Exam General: Alert, Oriented x3, No apparent distress, - - Withdrawn HEENT: Atraumatic, PERRLA, EOMI, Normocephalic Oropharynx:: Dry mucosa Neck:: Supple, Trachea midline. Negative for: JVD, bilateral Cardiac:: Regular rate, Regular rhythm, Normal S1, Normal S2. Negative for: Murmur Lungs: Clear to auscultation, Excusion symmetrical. Negative for: Rhonchi, Wheezes Abdomen:: Bowel sounds x 4, Soft, Non-tender, Non-distended. Negative for: Hepatosplenomegaly Neurological: Neuro grossly intact Skin:: Negative for: Lesions, Rash, Petechiae, Ecchymosis Lymphatics:: Negative for: Cervical lymphadenopathy, Supraclavicular lymphadenopathy, Axillary lymphadenopathy Laboratory Data: Laboratory Tests 12/13/17 12/13/17 Range/Units 17:33 17:33 WBC 8.9 (4.4-11.0) K/mm3 RBC 3.12 L (4.2-5.4) M/mm3 Hgb 7.9 L (12.0-15.0) g/dl Hct 25.0 L (37-47) % MCV 80.1 L (81-99) fL MCH 25.3 L (27.0-32.0) pg MCHC 31.6 L (32-36) g/gl RDW 17.3 H (11.6-14.6) % RDW Differential 50.9 H (35.1-43.9) fl Plt Count 265 (150-450) K/mm3 MPV 8.1 (6.2-12.0) fl Immature Gran % (Auto) 2.400 H (0.0-0.9) % Neut % (Auto) 80.7 H (47-70) % Lymph % (Auto) 9.1 L (19-41) % Thayer % (Auto) 7.2 (0-10) % Eos % (Auto) 0.6 (0-5) % Baso % (Auto) 0.0 (0-1) % Absolute Neuts (auto) 7.2 (2.0-7.7) X10^3/uL Absolute Lymphs (auto) 0.81 L (0.83-4.51) X10^3/ul Total Counted Not Reportable Diff Path Review May foll Platelet Estimate ADEQUATE (ADEQ) Polychromasia RARE Hypochromasia 1+ Anisocytosis RARE Microcytosis 1+ Leo Cells RARE Sodium 129 L (136-145) mmol/L Potassium 3.8 (3.5-5.1) mmol/L Chloride 98 (98-107) mmol/L Carbon Dioxide 18.0 L (21.0-32.0) mmol/L Anion Gap 13 (5-15) BUN 50 H (7-18) mg/dL Creatinine 2.77 H (0.55-1.02) mg/dL Estim Creat Clear Calc 20.98 ml/min Est GFR (MDRD) Af Amer 23 L (>60) mL/min Est GFR (MDRD) Non-Af 19 L (>60) mL/min BUN/Creatinine Ratio 18.1 (10-20) RATIO Glucose 88 (74-106) mg/dL Calcium 11.7 H (8.5-10.1) mg/dL Iron 28 L (50-170) ug/dL TIBC 141 L (250-450) ug/dL Iron Saturation 19.9 (15.0-55.0) % Ferritin 5487 H (8-252) ng/mL Lactate Dehydrogenase 147 (84-246) U/L Diagnostic Data: Diagnostic Data Brain CT 12/13/17 09:29 IMPRESSION: Chronic involutional changes of the brain. No hemorrhage. Electronically Signed: Kj York MD at 10:54 EDT , Service support , Chest X-Ray 12/13/17 10:04 IMPRESSION: Hilar lymphadenopathy suggesting sarcoidosis or lymphoma. CT scan recommended for further evaluation. Electronically Signed: Kj York MD at 10:55 EDT , Service support , Chest CT 12/13/17 11:03 IMPRESSION: Too numerous to count bulky lymph nodes throughout the mediastinum subcarina region and right root of the left hilum as well as in the upper abdomen. This accompanies moderate to severe splenomegaly. This raises concern for neoplastic etiology such as lymphoma leukemia possible metastatic disease or widespread infection. Cholelithiasis. Electronically Signed: Sosa Schmid MD at 12:44 EDT Tel , Service support , Assessment and Plan Mediastinal adenopathy with hepatosplenomegaly, differential diagnoses include lymphoma, carcinoma, sarcoidosis, Vasculitic syndrome. Has labs for LUCIA level, intact PTH, iron profile pending. Suggestions: 1. To obtain CT abdomen and pelvis to evaluate for abdominal nodes. 2. Rheumatology consult-Dr. Jerry. 3. Pulmonary consult for EBUS. Will follow with further suggestion when lab results are available. Thanks Medications: Prescriptions This Visit Medication Instructions Recorded Amlodipine [Norvasc] 5 mg PO DAILY 12/13/17 Leflunomide [Leflunomide] 10 mg PO DAILY 12/13/17 Prednisone [Prednisone] 2.5 mg PO DAILY 12/13/17 Medications Added to Medication List This Visit Category Date Time Status 0.9% Normal Saline 1,000 ml Med 12/13/17 18:07 Active IV 75 mls/hr 0.9% Saline Lock Med 12/13/17 15:56 Active 5 - 30 ml IV UD PRN Ipratropium/Albuterol Sulfate [Duoneb] Med 12/13/17 14:27 Active 3 ml INHALATION Q4H.RT Magnesium Hydroxide [Milk Of Magnesia] Med 12/13/17 14:27 Active 30 ml PO DAILY PRN Ondansetron [Zofran] Med 12/13/17 14:27 Active 4 mg IV Q8H PRN PRN Primary Care Provider: Colton Ramachandran Referring Provider: - Problem List (1) Lymphadenopathy, mediastinal Status: Chronic (2) Hepatosplenomegaly Status: Chronic Code Visit Office Visits / Consults: [id number] IP Consult L5
--- NOTE | 2017-12-13 18:47 | CON.PCM_ITS ---
Consult Referring Physician: Dr. Maddy Corona Consult Results: Mediastinal adenopathy. Subjective Date of Service:: 12/13/17 Chief Complaint: Asked to see pt for mediastinal adenopathy. History of Present Illness: 57 year old F was diagnosed with rheumatoid arthritis about [address] Yadira Jerry. She was started on leflunomide and prednisone. She came to the hospital because of general weakness, nausea and vomiting. She was found to have anemia, hypercalcemia, hyponatremia, with mediastinal adenopathy. CT scan of the chest on 12/13/2017 showed numerous to count bulky lymph nodes throughout the mediastinal, subcarinal, right and left hilar areas as well as upper abdomen with associated hepatosplenomegaly, moderate to severe. She was transfused 1 unit packed RBC in the ED. Past Medical History: Chronic Problems Hypertension (Chronic) Rheumatoid arthritis (Chronic) Lymphadenopathy, mediastinal (Chronic) Hepatosplenomegaly (Chronic) Past Medical/Surgical History: Past Medical History - Most Recent Inpatient Visit Past Medical History Start: 12/13/17 14: 36 Text: Status: Complete Freq: ONCE Protocol: Document 12/13/17 14:36 EEB (Rec: 12/13/17 14:47 EEB [id number]) BMI Required to complete PMH What is Patient's BMI 36.3 Neurologic Medical History Hx Stroke/TIA No Hx Dementia/Alzheimer's No Hx Parkinson's Disease No Hx Seizures No Hx Multiple Sclerosis No Hx Migraines No Cardiac Medical History VTE Present on Admission No Hx of Deep Vein Thrombosis/VTE/PE No Hx Hypertension Yes Hx Chest Pain/Angina No Hx Heart Attack No Hx Cardiac Surgery/Stents/Etc. No Hx Heart Failure No Hx Pacemaker/AICD No Hx Irregular Heartbeat and/or Afib No Hx Anticoagulant Therapy No Query Text:(Coumadin, Aspirin, Plavix, Xarelto, etc.) Hx Pain in Legs when Walking/Leg Cramps No Respiratory Medical History Hx COPD No Hx Emphysema No Hx Smoking No Smoking Status Never smoker Hx Tobacco Use in last 12 months No Hx Sleep Apnea No Do you snore loudly (louder than talking No or can be heard through closed doors)? Do you often feel tired/ fatigued/ No sleepy during daytime? Has anyone observed you stop breathing No during sleep? STOP Results Negative GI Medical History Hx Ulcer No Hx Hepatitis No Hx Cirrhosis No Hx GI Bleed No Hx Unplanned Weight Loss Yes Genitourinary Medical History Indwelling Catheter in Place on Arrival/ No Admission Hx Renal Disease Yes Hx Dialysis No Musculoskeletal History Hx Arthritis No Hx Rheumatoid Arthritis Yes Endocrine Medical History Hx Diabetes No Hx Thyroid Disease No Hematologic Medical History Hx of Blood Transfusion No Hx of Transfusion in last 3 Months No Ever experience any problems with No transfusion(s)? Hx of Preganancy in last 3 Months No Nurse Filling Out Transfusion & EBARNER Questions: Date: 12/13/17 Time: 14:46 Psycho/Social Medical History Hx Depression No Hx Anxiety No Hx Behavior Disorder No Hx Alcohol Use No Hx Substance Use No Other Medical History Hx Blood Disorders No Hx Anemia No Hx Cancer No Hx Drug Resistant Organism No Wound/Pressure Injury Present on Arrival No /Admission Query Text:If yes, chart assessment in Shift/Clinical Findings Central Line/PICC/VAD Present on Arrival No /Admission Antibiotics within last 7 days? No Methicillin Resistant Staphylococcus aureus Screening Active MRSA No Risk for Readmission Number of Risk Factors 2 At Risk for Readmission Patient is At Risk For Readmission Patient is eligible for Call Back Y Maternal Family History: No pertinent history Paternal Family History: No pertinent history - Social History Lives: With Family Smoking Status: Never smoker Tobacco Use: Non-smoker Alcohol: None Drugs: None Allergies/Adverse Reactions: Allergy/AdvReac Type Severity Reaction Status Date / Time No Known Allergies Allergy Verified 12/13/17 09:06 Review of Systems Constitutional:: Reports: Weakness, Fatigue. Denies: Fever, Sweats Cardiovascular:: Denies: Chest pain, Palpitations, Dyspnea on exertion, Orthopnea, PND, Shortness of breath Respiratory: Denies: Cough, Hemoptysis, Shortness of Breath, Wheezing Gastrointestinal:: Denies: Abdominal pain, Nausea, Vomiting, Diarrhea, Constipation, Hematochezia Genitourinary: Denies: Dysuria, Hematuria, 15, Flank pain Musculoskeletal:: Reports: Arthritis, Muscle weakness Skin: Denies: Rash, Skin Changes, Wounds Neurological:: Denies: Headache, Dizziness, Visual changes, Tinnitus, Hearing loss Psychiatric: Denies: Anxiety, Depression, Homicidal Ideations, Suicidal Ideations Vital Signs Height 5 ft 6 in Weight: 98.7 kg Weight in Pounds 217.6 lbs Pulse Ox 98 Temperature 98.9 F Pulse Rate 100 Respiratory Rate 16 Blood Pressure 135/70 Blood Pressure Position Semi-Fowlers - Physical Exam General: Alert, Oriented x3, No apparent distress, - - Withdrawn HEENT: Atraumatic, PERRLA, EOMI, Normocephalic Oropharynx:: Dry mucosa Neck:: Supple, Trachea midline. Negative for: JVD, bilateral Cardiac:: Regular rate, Regular rhythm, Normal S1, Normal S2. Negative for: Murmur Lungs: Clear to auscultation, Excusion symmetrical. Negative for: Rhonchi, Wheezes Abdomen:: Bowel sounds x 4, Soft, Non-tender, Non-distended. Negative for: Hepatosplenomegaly Neurological: Neuro grossly intact Skin:: Negative for: Lesions, Rash, Petechiae, Ecchymosis Lymphatics:: Negative for: Cervical lymphadenopathy, Supraclavicular lymphadenopathy, Axillary lymphadenopathy Laboratory Data: Laboratory Tests 3 12/13/17 12/13/17 Range/Units 17:33 17:33 WBC 8.9 (4.4-11.0) K/mm3 RBC 3.12 L (4.2-5.4) M/mm3 Hgb 7.9 L (12.0-15.0) g/dl Hct 25.0 L (37-47) % MCV 80.1 L (81-99) fL MCH 25.3 L (27.0-32.0) pg MCHC 31.6 L (32-36) g/gl RDW 17.3 H (11.6-14.6) % RDW Differential 50.9 H (35.1-43.9) fl Plt Count 265 (150-450) K/mm3 MPV 8.1 (6.2-12.0) fl Immature Gran % (Auto) 2.400 H (0.0-0.9) % Neut % (Auto) 80.7 H (47-70) % Lymph % (Auto) 9.1 L (19-41) % Metcalfe % (Auto) 7.2 (0-10) % Eos % (Auto) 0.6 (0-5) % Baso % (Auto) 0.0 (0-1) % Absolute Neuts (auto) 7.2 (2.0-7.7) X10^3/uL Absolute Lymphs (auto) 0.81 L (0.83-4.51) X10^3/ul Total Counted Not Reportable Diff Path Review May foll Platelet Estimate ADEQUATE (ADEQ) Polychromasia RARE Hypochromasia 1+ Anisocytosis RARE Microcytosis 1+ Manley Cells RARE Sodium 129 L (136-145) mmol/L Potassium 3.8 (3.5-5.1) mmol/L Chloride 98 (98-107) mmol/L Carbon Dioxide 18.0 L (21.0-32.0) mmol/L Anion Gap 13 (5-15) BUN 50 H (7-18) mg/dL Creatinine 2.77 H (0.55-1.02) mg/dL Estim Creat Clear Calc 20.98 ml/min Est GFR (MDRD) Af Amer 23 L (>60) mL/min Est GFR (MDRD) Non-Af 19 L (>60) mL/min BUN/Creatinine Ratio 18.1 (10-20) RATIO Glucose 88 (74-106) mg/dL Calcium 11.7 H (8.5-10.1) mg/dL Iron 28 L (50-170) ug/dL TIBC 141 L (250-450) ug/dL Iron Saturation 19.9 (15.0-55.0) % Ferritin 5487 H (8-252) ng/mL Lactate Dehydrogenase 147 (84-246) U/L Diagnostic Data: Diagnostic Data Brain CT 12/13/17 09:29 IMPRESSION: Chronic involutional changes of the brain. No hemorrhage. Electronically Signed: Kj York MD at 10:54 EDT , Service support , Chest X-Ray 12/13/17 10:04 IMPRESSION: Hilar lymphadenopathy suggesting sarcoidosis or lymphoma. CT scan recommended for further evaluation. Electronically Signed: Kj York MD at 10:55 EDT , Service support , Chest CT 12/13/17 11:03 IMPRESSION: Too numerous to count bulky lymph nodes throughout the mediastinum subcarina region and right root of the left hilum as well as in the upper abdomen. This accompanies moderate to severe splenomegaly. This raises concern for neoplastic etiology such as lymphoma leukemia possible metastatic disease or widespread infection. Cholelithiasis. Electronically Signed: Sosa Schmid MD at 12:44 EDT Tel , Service support , Assessment and Plan Mediastinal adenopathy with hepatosplenomegaly, differential diagnoses include lymphoma, carcinoma, sarcoidosis, Vasculitic syndrome. Has labs for LUCIA level, intact PTH, iron profile pending. Suggestions: 1. To obtain CT abdomen and pelvis to evaluate for abdominal nodes. 2. Rheumatology consult-Dr. Jerry. 3. Pulmonary consult for EBUS. Will follow with further suggestion when lab results are available. Thanks Medications: Prescriptions This Visit Medication Instructions Recorded Amlodipine [Norvasc] 5 mg PO DAILY 12/13/17 Leflunomide [Leflunomide] 10 mg PO DAILY 12/13/17 Prednisone [Prednisone] 2.5 mg PO DAILY 12/13/17 Medications Added to Medication List This Visit Category Date Time Status 0.9% Normal Saline 1,000 ml Med 12/13/17 18:07 Active IV 75 mls/hr 0.9% Saline Lock Med 12/13/17 15:56 Active 5 - 30 ml IV UD PRN Ipratropium/Albuterol Sulfate [Duoneb] Med 12/13/17 14:27 Active 3 ml INHALATION Q4H.RT Magnesium Hydroxide [Milk Of Magnesia] Med 12/13/17 14:27 Active 30 ml PO DAILY PRN Ondansetron [Zofran] Med 12/13/17 14:27 Active 4 mg IV Q8H PRN PRN Primary Care Provider: Colton Ramachandran Referring Provider: - Problem List (1) Lymphadenopathy, mediastinal Status: Chronic (2) Hepatosplenomegaly Status: Chronic Code Visit Office Visits / Consults: [id number] IP Consult L5
[2017-12-13] MEDS: Ipratropium/Albuterol Sulfate 3 ML AMPUL.NEB INHALATION (18:58)
[2017-12-14] VITALS (13 sets, daily range): BP systolic 105–133; BP diastolic 51–58; PULSE 95–111; RESP 16–22; TEMP 37.2–38.3; O2SAT 93–96
[2017-12-14 02:43] LABS: Mucous, Urine 0 SEEN /hpf (<or=2+); Red Blood Cells-Urine 0 SEEN /hpf (0-5)
[2017-12-14 02:45] LABS: Color, Urine Yellow (Yellow); Glucose, Dipstick Normal (Normal); Ketone-Dipstick Negative (Negative); Leukocyte Esterase-Dipstick 500 /ul (Negative); Nitrite-Dipstick Negative (Negative); Occult Blood-Urine 25 /ul (Negative); Protein-Dipstick 30 mg/dl (Negative); Urine Bilirubin Dipstick Negative (Negative); Urine Clarity Sl. Cloudy (Clear); Urine Urobilinogen 1 mg/dl (Normal)
[2017-12-14 02:58] LABS: Bacteria 1+ /hpf (None Seen); Squamous Epithelial Cells - UA 0-5 SEEN /hpf (5-10); White Blood Cells 25-50 SEEN /hpf (0-5)
[2017-12-14] MEDS: 0.9% Normal Saline 1,000 ML 75 ML IV (06:11)
[2017-12-14 06:13] LABS: Differential Indicated MANUAL DIFF; Hematocrit 23.6 % (37-47); Hemoglobin 7.5 g/dl (12.0-15.0); Mean Corp Hgb Conc 31.8 g/gl (32-36); Mean Corpuscular Hgb 25.5 pg (27.0-32.0); Mean Corpuscular Volume 80.3 fL (81-99); Mean Platelet Vol. 8.1 fl (6.2-12.0); POSITIVE COUNT YES; POSITIVE DIFFERENTIAL YES; POSITIVE MORPHOLOGY YES; Platelet Count 308 K/mm3 (150-450); RBC Distribution Width CV 17.4 % (11.6-14.6); RBC Distribution Width SD 48.7 fl (35.1-43.9); Red Blood Count 2.94 M/mm3 (4.2-5.4); White Blood Count 8.6 K/mm3 (4.4-11.0)
[2017-12-14 06:24] LABS: Anion Gap 13 (5-15); BUN 46 mg/dL (7-18); BUN/Creat Ratio 18.3 RATIO (10-20); Calcium,Total 11.1 mg/dL (8.5-10.1); Chloride 101 mmol/L (98-107); Creatinine, Serum 2.52 mg/dL (0.55-1.02); EST Glomerular Filtration Rate 21 mL/min (>60); Est Glom Filt Rate - Afr Amer 25 mL/min (>60); Estimated Creatinine Clearance 23.06 ml/min; Glucose 82 mg/dL (74-106); Potassium 3.7 mmol/L (3.5-5.1); Sodium Level 131 mmol/L (136-145)
[2017-12-14 06:50] LABS: Anisocytosis 1+; Hypochromasia 1+; Lymphocyte 7 % (19-41); Metamyelocyte 1 % (0-1); Monocyte 8 % (0-10); Neutrophil-Band 7 % (0-5); Neutrophil-Segmented 77 % (47-70); Platelet Estimate ADEQUATE (ADEQ); Total Cells Counted 100 (MANUAL DIFF)
[2017-12-14 06:51] LABS: Polychromasia 1+
[2017-12-14 06:52] LABS: Absolute Neutrophil Count 7.2 X10^3/uL (2.0-7.7)
[2017-12-14] MEDS: Ipratropium/Albuterol Sulfate 3 ML AMPUL.NEB INHALATION ×2 (06:54→19:35)
[2017-12-14] MEDS: amLODIPine 5 MG Tablet PO (08:31)
[2017-12-14] MEDS: predniSONE 5 MG Tablet 2.5 MG PO (08:31)
--- NOTE | 2017-12-14 12:04 | PCM.CONS.GEN ---
Problem List (1) Severe anemia Status: Acute (2) Hyponatremia Status: Acute (3) Hypercalcemia Status: Acute (4) Hypertension Status: Chronic Qualifiers: Hypertension type: essential hypertension Qualified Code(s): I10 - Essential (primary) hypertension (5) Rheumatoid arthritis Status: Chronic Qualifiers: Rheumatoid factor presence: unspecified presence Laterality: bilateral (6) Lymphadenopathy, mediastinal Status: Chronic (7) Hepatosplenomegaly Status: Chronic Reason for Consult Date of Consultation: 12/14/17 Reason for Consultation: Abnormal CT, mediastinal lymphadenopathy History of Present Illness: The patient is a 57 year old F with past medical history listed below, who presented to [facility] on 12/13/2017 secondary to feeling unwell. Patient reportedly has a history of chronic rheumatoid arthritis treated with prednisone and leflunomide since March 2017. Patient had been feeling very weak and had nausea and vomiting, so presented to the emergency room for evaluation. On arrival to the emergency room, patient was noted to be tachycardic and somewhat hypotensive. Patient was also noted to be saturating 90% on room air. Patient does have a history of chronic renal disease and creatinine was noted to be 2.96 and a corrected calcium of 13.6. Chest x-ray completed in the emergency room was suggestive of hilar lymphadenopathy, so a CT scan was obtained. This showed bulky lymphadenopathy throughout the mediastinum, subcarinal and hilum. Patient is not able to bring a lot of information forward. Discussed with patient's and daughters at the bedside. Patient has not been herself since she was admitted at [facility] 6-8 weeks ago. Patient stayed for 3 days and was given IV fluids. Family is unaware of what the workup and final diagnosis that led to the hospitalization. Patient denies ever having issues with mediastinal lymphadenopathy previously. Patient does not know of any previous CT scans. Patient is reported non-smoker, nondrinker and does not use any illicit drug history. Patient has had sections in the past with spinal anesthesia. Patient does take Norvasc for elevated blood pressure, but family states this was only required after initiation of prednisone therapy. Patient does have a long history of painful joints. Patient reportedly has not had any preventative cancer screening such as colonoscopy or Pap smear. Patient does not require supplemental oxygen at baseline. Patient has been having lot of belching recently. Review of systems otherwise negative x10 systems. Past Medical History Past Medical History (Chronic Problems): Chronic Problems Hypertension (Chronic) Rheumatoid arthritis (Chronic) Lymphadenopathy, mediastinal (Chronic) Hepatosplenomegaly (Chronic) Allergies No Known Allergies Allergy (Verified 12/13/17 09:06) Home Medications: Ambulatory Orders Medication Instructions Recorded Amlodipine [Norvasc] 5 mg PO DAILY 12/13/17 Leflunomide [Leflunomide] 10 mg PO DAILY 12/13/17 Prednisone [Prednisone] 2.5 mg PO DAILY 12/13/17 Surgical History: - - caesarian section Psychiatric History: No pertinent psych hx [employer] History: No pertinent [employer] history Lives: With Family Smoking Status: Never smoker Tobacco Use: Non-smoker Alcohol: None Drugs: None - *Family History Maternal History Items: No pertinent history Paternal History Items: No pertinent history Review of Systems Comment: See HPI. Patient not very interactive. Lack of cooperation appears to be voluntary. Patient Problems: Active and Suspected Problems Severe anemia (Acute) Hyponatremia (Acute) Hypercalcemia (Acute) Objective: CT scan of the chest was personally reviewed and shows bulky lymphadenopathy throughout the thoracic and hilar chains. Patient does not have any fibrotic changes noted of the lung parenchyma. - Physical Exam General: Alert, Oriented x3, Cooperative - Intermittently, No apparent distress, - - Obese. Speaking in full sentences. HEENT: Atraumatic, PERRLA, EOMI, Normocephalic, - - No scleral icterus or injection noted Oral: Moist Mucosa, No Gingival or Mucosal Lesions/ Ulcerations Neck: Supple, No JVD, No Nodes, Trachea Midline Lungs: Clear to auscultation, Normal air movement, No rhonchi, No wheeze, No rales Cardiovascular: Regular rate, Regular Rhythm, Normal S1, Normal S2, No murmurs, No rub noted, No Gallop Abdomen: Bowel Sounds Present, Soft, Non Tender, Non-Distended, Obese Extremities: No clubbing, No cyanosis, No edema, Capillary Refill Less than 3 Seconds Skin: No rashes, No breakdown Musculoskeletal: No Tenderness to Palpation of Joints or Extremities Lymphatic: No Cervical, Supraclavicular, or Inguinal Adenopathy Neurological: Cranial nerves II-XII grossly intact, Neuro grossly intact, - - Decreased motor strength throughout with nonfocal exam. Psych/Mental Status: Alert and oriented to time, place, person, mood and affect Vital Signs Temp Pulse Resp BP Pulse Ox 37.2 C 110 H 16 128/58 H 96 12/14/17 08:30 12/14/17 11:00 12/14/17 08:30 12/14/17 08:30 12/14/17 08:30 Oxygen Delivery Method Room Air Weight: 98.7 kg Body Mass Index (BMI) 35.1 Intake and Output for Last 24 Hours 12/12/17 12/13/17 12/14/17 23:59 23:59 23:59 Intake Total 1392 / 1392 1163 / 1163 Output Total 500 / 500 900 / 900 Balance 892 / 892 263 / 263 Laboratory Tests Past 24 Hrs 12/13/17 12/13/17 12/13/17 17:33 17:33 17:33 WBC 8.9 RBC 3.12 L Hgb 7.9 L Hct 25.0 L MCV 80.1 L MCH 25.3 L MCHC 31.6 L RDW 17.3 H RDW Differential 50.9 H Plt Count 265 MPV 8.1 Immature Gran % (Auto) 2.400 H Neut % (Auto) 80.7 H Lymph % (Auto) 9.1 L [place] % (Auto) 7.2 Eos % (Auto) 0.6 Baso % (Auto) 0.0 Absolute Neuts (auto) 7.2 Absolute Lymphs (auto) 0.81 L Total Counted Not Reportable Neutrophils % (Manual) Band Neutrophils % Lymphocytes % (Manual) Monocytes % (Manual) Metamyelocytes % Diff Path Review May foll Platelet Estimate ADEQUATE Polychromasia RARE Hypochromasia 1+ Anisocytosis RARE Microcytosis 1+ Leo Cells RARE Sodium 129 L Potassium 3.8 Chloride 98 Carbon Dioxide 18.0 L Anion Gap 13 BUN 50 H Creatinine 2.77 H Estim Creat Clear Calc 20.98 Est GFR (MDRD) Af Amer 23 L Est GFR (MDRD) Non-Af 19 L BUN/Creatinine Ratio 18.1 Glucose 88 Calcium 11.7 H Iron 28 L TIBC 141 L Iron Saturation 19.9 Ferritin 5487 H Lactate Dehydrogenase 147 Angiotensin Convert Enz Vit D 1,25-Dihydroxy PTH Intact Pending Urine Color Urine Clarity Urine pH Ur Specific Dick[place] Urine Protein Urine Glucose (UA) Urine Ketones Urine Occult Blood Urine Nitrite Urine Bilirubin Urine Urobilinogen Ur Leukocyte Esterase Urine RBC Urine WBC Ur Squamous Epith Cells Urine Bacteria Urine Mucus IgG IgA IgM IgE Miscellaneous Test 12/13/17 12/13/17 12/13/17 17:33 17:33 17:33 WBC RBC Hgb Hct MCV MCH MCHC RDW RDW Differential Plt Count MPV Immature Gran % (Auto) Neut % (Auto) Lymph % (Auto) [place] % (Auto) Eos % (Auto) Baso % (Auto) Absolute Neuts (auto) Absolute Lymphs (auto) Total Counted Neutrophils % (Manual) Band Neutrophils % Lymphocytes % (Manual) Monocytes % (Manual) Metamyelocytes % Diff Path Review Platelet Estimate Polychromasia Hypochromasia Anisocytosis Microcytosis [place] Cells Sodium Potassium Chloride Carbon Dioxide Anion Gap BUN Creatinine Estim Creat Clear Calc Est GFR (MDRD) Af Amer Est GFR (MDRD) Non-Af BUN/Creatinine Ratio Glucose Calcium Iron TIBC Iron Saturation Ferritin Lactate Dehydrogenase Angiotensin Convert Enz Pending Vit D 1,25-Dihydroxy Pending PTH Intact Urine Color Urine Clarity Urine pH Ur Specific [place] Urine Protein Urine Glucose (UA) Urine Ketones Urine Occult Blood Urine Nitrite Urine Bilirubin Urine Urobilinogen Ur Leukocyte Esterase Urine RBC Urine WBC Ur Squamous Epith Cells Urine Bacteria Urine Mucus IgG Pending IgA Pending IgM Pending IgE Pending Miscellaneous Test 12/13/17 12/14/17 12/14/17 17:33 02:30 05:40 WBC RBC Hgb Hct MCV MCH MCHC RDW RDW Differential Plt Count MPV Immature Gran % (Auto) Neut % (Auto) Lymph % (Auto) [place] % (Auto) Eos % (Auto) Baso % (Auto) Absolute Neuts (auto) Absolute Lymphs (auto) Total Counted Neutrophils % (Manual) Band Neutrophils % Lymphocytes % (Manual) Monocytes % (Manual) Metamyelocytes % Diff Path Review Platelet Estimate Polychromasia Hypochromasia Anisocytosis Microcytosis Leo Cells Sodium 131 L Potassium 3.7 Chloride 101 Carbon Dioxide 17.0 L Anion Gap 13 BUN 46 H Creatinine 2.52 H Estim Creat Clear Calc 23.06 Est GFR (MDRD) Af Amer 25 L Est GFR (MDRD) Non-Af 21 L BUN/Creatinine Ratio 18.3 Glucose 82 Calcium 11.1 H Iron TIBC Iron Saturation Ferritin Lactate Dehydrogenase Angiotensin Convert Enz Vit D 1,25-Dihydroxy PTH Intact Urine Color Yellow Urine Clarity Sl. Cloudy Urine pH 6.0 Ur Specific [place] 1.010 Urine Protein 30 H Urine Glucose (UA) Normal Urine Ketones Negative Urine Occult Blood 25 H Urine Nitrite Negative Urine Bilirubin Negative Urine Urobilinogen 1 H Ur Leukocyte Esterase 500 H Urine RBC 0 SEEN Urine WBC 25-50 SEEN Ur Squamous Epith Cells 0-5 SEEN Urine Bacteria 1+ Urine Mucus 0 SEEN IgG IgA IgM IgE Miscellaneous Test Pending 12/14/17 05:40 WBC 8.6 RBC 2.94 L Hgb 7.5 L Hct 23.6 L MCV 80.3 L MCH 25.5 L MCHC 31.8 L RDW 17.4 H RDW Differential 48.7 H Plt Count 308 MPV 8.1 Immature Gran % (Auto) Neut % (Auto) Not Reportable Lymph % (Auto) [place] % (Auto) Eos % (Auto) Baso % (Auto) Absolute Neuts (auto) 7.2 Absolute Lymphs (auto) 0.60 L Total Counted 100 Neutrophils % (Manual) 77 H Band Neutrophils % 7 H Lymphocytes % (Manual) 7 L Monocytes % (Manual) 8 Metamyelocytes % [address] Review May foll Platelet Estimate ADEQUATE Polychromasia 1+ Hypochromasia 1+ Anisocytosis 1+ Microcytosis Leo Cells Sodium Potassium Chloride Carbon Dioxide Anion Gap BUN Creatinine Estim Creat Clear Calc Est GFR (MDRD) Af Amer Est GFR (MDRD) Non-Af BUN/Creatinine Ratio Glucose Calcium Iron TIBC Iron Saturation Ferritin Lactate Dehydrogenase Angiotensin Convert Enz Vit D 1,25-Dihydroxy PTH Intact Urine Color Urine Clarity Urine pH Ur Specific [place] Urine Protein Urine Glucose (UA) Urine Ketones Urine Occult Blood Urine Nitrite Urine Bilirubin Urine Urobilinogen Ur Leukocyte Esterase Urine RBC Urine WBC Ur Squamous Epith Cells Urine Bacteria Urine Mucus IgG IgA IgM IgE Miscellaneous Test Clinical Impression(s) from Imaging Studies Chest CT 12/13/17 11:03 IMPRESSION: Too numerous to count bulky lymph nodes throughout the mediastinum subcarina region and right root of the left hilum as well as in the upper abdomen. This accompanies moderate to severe splenomegaly. This raises concern for neoplastic etiology such as lymphoma leukemia possible metastatic disease or widespread infection. Cholelithiasis. Electronically Signed: Sosa Schmid MD at 12:44 EDT Tel , Service support , Abdomen CT 12/13/17 18:36 IMPRESSION: 1. No acute findings of the abdomen or pelvis 2. Hepatomegaly and splenomegaly 3. Hyperdense appearance of the bilateral renal calyces without obstruction 4. Numerous retroperitoneal and maria ines hepatis lymph nodes. Nonspecific however, malignancy is not excluded. Consider PET/CT to further evaluate. Electronically Signed: Raghu Cabello DO at 21:46 EDT Tel , Service support , Assessment/Plan All Active Problems Severe anemia (Acute) Hyponatremia (Acute) Hypercalcemia (Acute) RECOMMENDATIONS: 1. Continue aggressive fluid hydration 2. Follow electrolytes closely 3. Obtain coagulation studies 4. Await renal failure workup 5. OUTPATIENT endobronchial ultrasound IMPRESSIONS: 1. Mediastinal lymphadenopathy Patient with significant lymphadenopathy noted throughout the thoracic, hilar and subcarinal chains. Patient would be an excellent candidate for endobronchial ultrasound for biopsy. Patient has had elevated temperatures which may indicate B type symptoms. Differential diagnosis would include: Sarcoidosis, lymphoma and acute infection. Clinical suspicion is for lymphoma. Did discuss with the patient the risks, benefits and alternatives to endobronchial ultrasound. They appear to be open to proceed with the procedure. Patient's hospitalization should focus on electrolyte normalization with outpatient endobronchial ultrasound shortly after discharge. 2. Hypovolemic hyponatremia/hypercalcemia Patient currently undergoing volume resuscitation with normal saline. Continue to monitor. 3. Anemia/rheumatoid arthritis/obesity/multiple hospitalizations/debility Complicates care, management, recovery and prognosis. Patient's protein is within normal limits, but albumin is significantly reduced at 1.8 with elevation in globulin. ID studies are currently pending. Code Visit Inpatient E&M: 45837 Init Hosp L2
--- NOTE | 2017-12-14 12:09 | CON.PCM_ITS ---
Problem List (1) Severe anemia Status: Acute (2) Hyponatremia Status: Acute (3) Hypercalcemia Status: Acute (4) Hypertension Status: Chronic Qualifiers: Hypertension type: essential hypertension Qualified Code(s): I10 - Essential (primary) hypertension (5) Rheumatoid arthritis Status: Chronic Qualifiers: Rheumatoid factor presence: unspecified presence Laterality: bilateral (6) Lymphadenopathy, mediastinal Status: Chronic (7) Hepatosplenomegaly Status: Chronic Reason for Consult Date of Consultation: 12/14/17 Reason for Consultation: Abnormal CT, mediastinal lymphadenopathy History of Present Illness: The patient is a 57 year old F with past medical history listed below, who presented to [facility] on 12/13/2017 secondary to feeling unwell. Patient reportedly has a history of chronic rheumatoid arthritis treated with prednisone and leflunomide since March 2017. Patient had been feeling very weak and had nausea and vomiting, so presented to the emergency room for evaluation. On arrival to the emergency room, patient was noted to be tachycardic and somewhat hypotensive. Patient was also noted to be saturating 90% on room air. Patient does have a history of chronic renal disease and creatinine was noted to be 2.96 and a corrected calcium of 13.6. Chest x-ray completed in the emergency room was suggestive of hilar lymphadenopathy, so a CT scan was obtained. This showed bulky lymphadenopathy throughout the mediastinum, subcarinal and hilum. Patient is not able to bring a lot of information forward. Discussed with patient's and daughters at the bedside. Patient has not been herself since she was admitted at [place] 6-8 weeks ago. Patient stayed for 3 days and was given IV fluids. Family is unaware of what the workup and final diagnosis that led to the hospitalization. Patient denies ever having issues with mediastinal lymphadenopathy previously. Patient does not know of any previous CT scans. Patient is reported non-smoker , nondrinker and does not use any illicit drug history. Patient has had sections in the past with spinal anesthesia. Patient does take Norvasc for elevated blood pressure, but family states this was only required after initiation of prednisone therapy. Patient does have a long history of painful joints. Patient reportedly has not had any preventative cancer screening such as colonoscopy or Pap smear. Patient does not require supplemental oxygen at baseline. Patient has been having lot of belching recently. Review of systems otherwise negative x10 systems. Past Medical History Past Medical History (Chronic Problems): Chronic Problems Hypertension (Chronic) Rheumatoid arthritis (Chronic) Lymphadenopathy, mediastinal (Chronic) Hepatosplenomegaly (Chronic) Allergies No Known Allergies Allergy (Verified 12/13/17 09:06) Home Medications: Ambulatory Orders Medication Instructions Recorded Amlodipine [Norvasc] 5 mg PO DAILY 12/13/17 Leflunomide [Leflunomide] 10 mg PO DAILY 12/13/17 Prednisone [Prednisone] 2.5 mg PO DAILY 12/13/17 Surgical History: - - caesarian section Psychiatric History: No pertinent psych hx [employer] History: No pertinent [employer] history Lives: With Family Smoking Status: Never smoker Tobacco Use: Non-smoker Alcohol: None Drugs: None - *Family History Maternal History Items: No pertinent history Paternal History Items: No pertinent history Review of Systems Comment: See HPI. Patient not very interactive. Lack of cooperation appears to be voluntary. Patient Problems: Active and Suspected Problems Severe anemia (Acute) Hyponatremia (Acute) Hypercalcemia (Acute) Objective: CT scan of the chest was personally reviewed and shows bulky lymphadenopathy throughout the thoracic and hilar chains. Patient does not have any fibrotic changes noted of the lung parenchyma. - Physical Exam General: Alert, Oriented x3, Cooperative - Intermittently, No apparent distress , - - Obese. Speaking in full sentences. HEENT: Atraumatic, PERRLA, EOMI, Normocephalic, - - No scleral icterus or injection noted Oral: Moist Mucosa, No Gingival or Mucosal Lesions/ Ulcerations Neck: Supple, No JVD, No Nodes, Trachea Midline Lungs: Clear to auscultation, Normal air movement, No rhonchi, No wheeze, No rales Cardiovascular: Regular rate, Regular Rhythm, Normal S1, Normal S2, No murmurs, No rub noted, No Gallop Abdomen: Bowel Sounds Present, Soft, Non Tender, Non-Distended, Obese Extremities: No clubbing, No cyanosis, No edema, Capillary Refill Less than 3 Seconds Skin: No rashes, No breakdown Musculoskeletal: No Tenderness to Palpation of Joints or Extremities Lymphatic: No Cervical, Supraclavicular, or Inguinal Adenopathy Neurological: Cranial nerves II-XII grossly intact, Neuro grossly intact, - - Decreased motor strength throughout with nonfocal exam. Psych/Mental Status: Alert and oriented to time, place, person, mood and affect Vital Signs Temp Pulse Resp BP Pulse Ox 37.2 C 110 H 16 128/58 H 96 12/14/17 08:30 12/14/17 11:00 12/14/17 08:30 12/14/17 08:30 12/14/17 08:30 Oxygen Delivery Method Room Air Weight: 98.7 kg Body Mass Index (BMI) 35.1 Intake and Output for Last 24 Hours 12/12/17 12/13/17 12/14/17 23:59 23:59 23:59 Intake Total 1392 / 1392 1163 / 1163 Output Total 500 / 500 900 / 900 Balance 892 / 892 263 / 263 Laboratory Tests Past 24 Hrs 12/13/17 12/13/17 12/13/17 17:33 17:33 17:33 WBC 8.9 RBC 3.12 L Hgb 7.9 L Hct 25.0 L MCV 80.1 L MCH 25.3 L MCHC 31.6 L RDW 17.3 H RDW Differential 50.9 H Plt Count 265 MPV 8.1 Immature Gran % (Auto) 2.400 H Neut % (Auto) 80.7 H Lymph % (Auto) 9.1 L [place] % (Auto) 7.2 Eos % (Auto) 0.6 Baso % (Auto) 0.0 Absolute Neuts (auto) 7.2 Absolute Lymphs (auto) 0.81 L Total Counted Not Reportable Neutrophils % (Manual) Band Neutrophils % Lymphocytes % (Manual) Monocytes % (Manual) Metamyelocytes % Diff Path Review May foll Platelet Estimate ADEQUATE Polychromasia RARE Hypochromasia 1+ Anisocytosis RARE Microcytosis 1+ [place] Cells RARE Sodium 129 L Potassium 3.8 Chloride 98 Carbon Dioxide 18.0 L Anion Gap 13 BUN 50 H Creatinine 2.77 H Estim Creat Clear Calc 20.98 Est GFR (MDRD) Af Amer 23 L Est GFR (MDRD) Non-Af 19 L BUN/Creatinine Ratio 18.1 Glucose 88 Calcium 11.7 H Iron 28 L TIBC 141 L Iron Saturation 19.9 Ferritin 5487 H Lactate Dehydrogenase 147 Angiotensin Convert Enz Vit D 1,25-Dihydroxy PTH Intact Pending Urine Color Urine Clarity Urine pH Ur Specific [place] Urine Protein Urine Glucose (UA) Urine Ketones Urine Occult Blood Urine Nitrite Urine Bilirubin Urine Urobilinogen Ur Leukocyte Esterase Urine RBC Urine WBC Ur Squamous Epith Cells Urine Bacteria Urine Mucus IgG IgA IgM IgE Miscellaneous Test 12/13/17 12/13/17 12/13/17 17:33 17:33 17:33 WBC RBC Hgb Hct MCV MCH MCHC RDW RDW Differential Plt Count MPV Immature Gran % (Auto) Neut % (Auto) Lymph % (Auto) [place] % (Auto) Eos % (Auto) Baso % (Auto) Absolute Neuts (auto) Absolute Lymphs (auto) Total Counted Neutrophils % (Manual) Band Neutrophils % Lymphocytes % (Manual) Monocytes % (Manual) Metamyelocytes % Diff Path Review Platelet Estimate Polychromasia Hypochromasia Anisocytosis Microcytosis Leo Cells Sodium Potassium Chloride Carbon Dioxide Anion Gap BUN Creatinine Estim Creat Clear Calc Est GFR (MDRD) Af Amer Est GFR (MDRD) Non-Af BUN/Creatinine Ratio Glucose Calcium Iron TIBC Iron Saturation Ferritin Lactate Dehydrogenase Angiotensin Convert Enz Pending Vit D 1,25-Dihydroxy Pending PTH Intact Urine Color Urine Clarity Urine pH Ur Specific [place] Urine Protein Urine Glucose (UA) Urine Ketones Urine Occult Blood Urine Nitrite Urine Bilirubin Urine Urobilinogen Ur Leukocyte Esterase Urine RBC Urine WBC Ur Squamous Epith Cells Urine Bacteria Urine Mucus IgG Pending IgA Pending IgM Pending IgE Pending Miscellaneous Test 12/13/17 12/14/17 12/14/17 17:33 02:30 05:40 WBC RBC Hgb Hct MCV MCH MCHC RDW RDW Differential Plt Count MPV Immature Gran % (Auto) Neut % (Auto) Lymph % (Auto) [place] % (Auto) Eos % (Auto) Baso % (Auto) Absolute Neuts (auto) Absolute Lymphs (auto) Total Counted Neutrophils % (Manual) Band Neutrophils % Lymphocytes % (Manual) Monocytes % (Manual) Metamyelocytes % Diff Path Review Platelet Estimate Polychromasia Hypochromasia Anisocytosis Microcytosis [place] Cells Sodium 131 L Potassium 3.7 Chloride 101 Carbon Dioxide 17.0 L Anion Gap 13 BUN 46 H Creatinine 2.52 H Estim Creat Clear Calc 23.06 Est GFR (MDRD) Af Amer 25 L Est GFR (MDRD) Non-Af 21 L BUN/Creatinine Ratio 18.3 Glucose 82 Calcium 11.1 H Iron TIBC Iron Saturation Ferritin Lactate Dehydrogenase Angiotensin Convert Enz Vit D 1,25-Dihydroxy PTH Intact Urine Color Yellow Urine Clarity Sl. Cloudy Urine pH 6.0 Ur Specific [place] 1.010 Urine Protein 30 H Urine Glucose (UA) Normal Urine Ketones Negative Urine Occult Blood 25 H Urine Nitrite Negative Urine Bilirubin Negative Urine Urobilinogen 1 H Ur Leukocyte Esterase 500 H Urine RBC 0 SEEN Urine WBC 25-50 SEEN Ur Squamous Epith Cells 0-5 SEEN Urine Bacteria 1+ Urine Mucus 0 SEEN IgG IgA IgM IgE Miscellaneous Test Pending 12/14/17 05:40 WBC 8.6 RBC 2.94 L Hgb 7.5 L Hct 23.6 L MCV 80.3 L MCH 25.5 L MCHC 31.8 L RDW 17.4 H RDW Differential 48.7 H Plt Count 308 MPV 8.1 Immature Gran % (Auto) Neut % (Auto) Not Reportable Lymph % (Auto) [place] % (Auto) Eos % (Auto) Baso % (Auto) Absolute Neuts (auto) 7.2 Absolute Lymphs (auto) 0.60 L Total Counted 100 Neutrophils % (Manual) 77 H Band Neutrophils % 7 H Lymphocytes % (Manual) 7 L Monocytes % (Manual) 8 Metamyelocytes % [address] Review May foll Platelet Estimate ADEQUATE Polychromasia 1+ Hypochromasia 1+ Anisocytosis 1+ Microcytosis [place] Cells Sodium Potassium Chloride Carbon Dioxide Anion Gap BUN Creatinine Estim Creat Clear Calc Est GFR (MDRD) Af Amer Est GFR (MDRD) Non-Af BUN/Creatinine Ratio Glucose Calcium Iron TIBC Iron Saturation Ferritin Lactate Dehydrogenase Angiotensin Convert Enz Vit D 1,25-Dihydroxy PTH Intact Urine Color Urine Clarity Urine pH Ur Specific [place] Urine Protein Urine Glucose (UA) Urine Ketones Urine Occult Blood Urine Nitrite Urine Bilirubin Urine Urobilinogen Ur Leukocyte Esterase Urine RBC Urine WBC Ur Squamous Epith Cells Urine Bacteria Urine Mucus IgG IgA IgM IgE Miscellaneous Test Clinical Impression(s) from Imaging Studies Chest CT 12/13/17 11:03 IMPRESSION: Too numerous to count bulky lymph nodes throughout the mediastinum subcarina region and right root of the left hilum as well as in the upper abdomen. This accompanies moderate to severe splenomegaly. This raises concern for neoplastic etiology such as lymphoma leukemia possible metastatic disease or widespread infection. Cholelithiasis. Electronically Signed: Sosa Schmid MD at 12:44 EDT Tel , Service support , Abdomen CT 12/13/17 18:36 IMPRESSION: 1. No acute findings of the abdomen or pelvis 2. Hepatomegaly and splenomegaly 3. Hyperdense appearance of the bilateral renal calyces without obstruction 4. Numerous retroperitoneal and maria ines hepatis lymph nodes. Nonspecific however, malignancy is not excluded. Consider PET/CT to further evaluate. Electronically Signed: Raghu Cabello DO at 21:46 EDT Tel , Service support , Assessment/Plan All Active Problems Severe anemia (Acute) Hyponatremia (Acute) Hypercalcemia (Acute) RECOMMENDATIONS: 1. Continue aggressive fluid hydration 2. Follow electrolytes closely 3. Obtain coagulation studies 4. Await renal failure workup 5. OUTPATIENT endobronchial ultrasound IMPRESSIONS: 1. Mediastinal lymphadenopathy Patient with significant lymphadenopathy noted throughout the thoracic, hilar and subcarinal chains. Patient would be an excellent candidate for endobronchial ultrasound for biopsy. Patient has had elevated temperatures which may indicate B type symptoms. Differential diagnosis would include: Sarcoidosis, lymphoma and acute infection. Clinical suspicion is for lymphoma. Did discuss with the patient the risks, benefits and alternatives to endobronchial ultrasound. They appear to be open to proceed with the procedure. Patient's hospitalization should focus on electrolyte normalization with outpatient endobronchial ultrasound shortly after discharge. 2. Hypovolemic hyponatremia/hypercalcemia Patient currently undergoing volume resuscitation with normal saline. Continue to monitor. 3. Anemia/rheumatoid arthritis/obesity/multiple hospitalizations/debility Complicates care, management, recovery and prognosis. Patient's protein is within normal limits, but albumin is significantly reduced at 1.8 with elevation in globulin. ID studies are currently pending. Code Visit Inpatient E&M: 20501 Init Hosp L2
--- NOTE | 2017-12-14 13:33 | PCM.PROGNOTE ---
<Jose Alfredo Wagner - Last Filed: 12/14/17 13:33> Patient Problems: Active and Suspected Problems Severe anemia (Acute) Hyponatremia (Acute) Hypercalcemia (Acute) Subjective: Pt resting comfortably in bed. She feels SOB when moving her bowels. Otherwise no complaints. No dysuria. No fever/chills. No abdominal pain. - Physical Exam General: Alert, Oriented x3, Cooperative HEENT: Atraumatic, PERRLA, EOMI, Normocephalic Neck: Supple, No JVD, Negative Carotid Bruits Lungs: Clear to auscultation, Normal air movement Cardiovascular: Regular rate, No murmurs Abdomen: Bowel Sounds Present, Soft, Non Tender Extremities: No edema, Capillary Refill Less than 3 Seconds Skin: No rashes, No breakdown Musculoskeletal: No Tenderness to Palpation of Joints or Extremities Neurological: Cranial nerves II-XII grossly intact Psych/Mental Status: Depressed, Alert and oriented to time, place, person, mood and affect Vital Signs Temp Pulse Resp BP Pulse Ox 99.0 F 110 H 16 128/58 H 96 12/14/17 08:30 12/14/17 11:00 12/14/17 08:30 12/14/17 08:30 12/14/17 08:30 Oxygen Delivery Method Room Air Weight: 217 lb 9.54 oz Body Mass Index (BMI) 35.1 Intake and Output for Last 24 Hours 12/12/17 12/13/17 12/14/17 23:59 23:59 23:59 Intake Total 1392 / 1392 1163 / 1163 Output Total 500 / 500 900 / 900 Balance 892 / 892 263 / 263 Laboratory Tests Past 24 Hrs 12/13/17 12/13/17 12/13/17 17:33 17:33 17:33 WBC 8.9 RBC 3.12 L Hgb 7.9 L Hct 25.0 L MCV 80.1 L MCH 25.3 L MCHC 31.6 L RDW 17.3 H RDW Differential 50.9 H Plt Count 265 MPV 8.1 Immature Gran % (Auto) 2.400 H Neut % (Auto) 80.7 H Lymph % (Auto) 9.1 L [place] % (Auto) 7.2 Eos % (Auto) 0.6 Baso % (Auto) 0.0 Absolute Neuts (auto) 7.2 Absolute Lymphs (auto) 0.81 L Total Counted Not Reportable Neutrophils % (Manual) Band Neutrophils % Lymphocytes % (Manual) Monocytes % (Manual) Metamyelocytes % Diff Path Review May foll Platelet Estimate ADEQUATE Polychromasia RARE Hypochromasia 1+ Anisocytosis RARE Microcytosis 1+ Mcclure Cells RARE Sodium 129 L Potassium 3.8 Chloride 98 Carbon Dioxide 18.0 L Anion Gap 13 BUN 50 H Creatinine 2.77 H Estim Creat Clear Calc 20.98 Est GFR (MDRD) Af Amer 23 L Est GFR (MDRD) Non-Af 19 L BUN/Creatinine Ratio 18.1 Glucose 88 Calcium 11.7 H Iron 28 L TIBC 141 L Iron Saturation 19.9 Ferritin 5487 H Lactate Dehydrogenase 147 Angiotensin Convert Enz Vit D 1,25-Dihydroxy PTH Intact Pending Urine Color Urine Clarity Urine pH Ur Specific [place] Urine Protein Urine Glucose (UA) Urine Ketones Urine Occult Blood Urine Nitrite Urine Bilirubin Urine Urobilinogen Ur Leukocyte Esterase Urine RBC Urine WBC Ur Squamous Epith Cells Urine Bacteria Urine Mucus IgG IgA IgM IgE Miscellaneous Test 12/13/17 12/13/17 12/13/17 17:33 17:33 17:33 WBC RBC Hgb Hct MCV MCH MCHC RDW RDW Differential Plt Count MPV Immature Gran % (Auto) Neut % (Auto) Lymph % (Auto) [place] % (Auto) Eos % (Auto) Baso % (Auto) Absolute Neuts (auto) Absolute Lymphs (auto) Total Counted Neutrophils % (Manual) Band Neutrophils % Lymphocytes % (Manual) Monocytes % (Manual) Metamyelocytes % Diff Path Review Platelet Estimate Polychromasia Hypochromasia Anisocytosis Microcytosis Leo Cells Sodium Potassium Chloride Carbon Dioxide Anion Gap BUN Creatinine Estim Creat Clear Calc Est GFR (MDRD) Af Amer Est GFR (MDRD) Non-Af BUN/Creatinine Ratio Glucose Calcium Iron TIBC Iron Saturation Ferritin Lactate Dehydrogenase Angiotensin Convert Enz Pending Vit D 1,25-Dihydroxy Pending PTH Intact Urine Color Urine Clarity Urine pH Ur Specific [place] Urine Protein Urine Glucose (UA) Urine Ketones Urine Occult Blood Urine Nitrite Urine Bilirubin Urine Urobilinogen Ur Leukocyte Esterase Urine RBC Urine WBC Ur Squamous Epith Cells Urine Bacteria Urine Mucus IgG Pending IgA Pending IgM Pending IgE Pending Miscellaneous Test 12/13/17 12/14/17 12/14/17 17:33 02:30 05:40 WBC RBC Hgb Hct MCV MCH MCHC RDW RDW Differential Plt Count MPV Immature Gran % (Auto) Neut % (Auto) Lymph % (Auto) [place] % (Auto) Eos % (Auto) Baso % (Auto) Absolute Neuts (auto) Absolute Lymphs (auto) Total Counted Neutrophils % (Manual) Band Neutrophils % Lymphocytes % (Manual) Monocytes % (Manual) Metamyelocytes % Diff Path Review Platelet Estimate Polychromasia Hypochromasia Anisocytosis Microcytosis Leo Cells Sodium 131 L Potassium 3.7 Chloride 101 Carbon Dioxide 17.0 L Anion Gap 13 BUN 46 H Creatinine 2.52 H Estim Creat Clear Calc 23.06 Est GFR (MDRD) Af Amer 25 L Est GFR (MDRD) Non-Af 21 L BUN/Creatinine Ratio 18.3 Glucose 82 Calcium 11.1 H Iron TIBC Iron Saturation Ferritin Lactate Dehydrogenase Angiotensin Convert Enz Vit D 1,25-Dihydroxy PTH Intact Urine Color Yellow Urine Clarity Sl. Cloudy Urine pH 6.0 Ur Specific [place] 1.010 Urine Protein 30 H Urine Glucose (UA) Normal Urine Ketones Negative Urine Occult Blood 25 H Urine Nitrite Negative Urine Bilirubin Negative Urine Urobilinogen 1 H Ur Leukocyte Esterase 500 H Urine RBC 0 SEEN Urine WBC 25-50 SEEN Ur Squamous Epith Cells 0-5 SEEN Urine Bacteria 1+ Urine Mucus 0 SEEN IgG IgA IgM IgE Miscellaneous Test Pending 12/14/17 05:40 WBC 8.6 RBC 2.94 L Hgb 7.5 L Hct 23.6 L MCV 80.3 L MCH 25.5 L MCHC 31.8 L RDW 17.4 H RDW Differential 48.7 H Plt Count 308 MPV 8.1 Immature Gran % (Auto) Neut % (Auto) Not Reportable Lymph % (Auto) [place] % (Auto) Eos % (Auto) Baso % (Auto) Absolute Neuts (auto) 7.2 Absolute Lymphs (auto) 0.60 L Total Counted 100 Neutrophils % (Manual) 77 H Band Neutrophils % 7 H Lymphocytes % (Manual) 7 L Monocytes % (Manual) 8 Metamyelocytes % 1 [address] Review May foll Platelet Estimate ADEQUATE Polychromasia 1+ Hypochromasia 1+ Anisocytosis 1+ Microcytosis Leo Cells Sodium Potassium Chloride Carbon Dioxide Anion Gap BUN Creatinine Estim Creat Clear Calc Est GFR (MDRD) Af Amer Est GFR (MDRD) Non-Af BUN/Creatinine Ratio Glucose Calcium Iron TIBC Iron Saturation Ferritin Lactate Dehydrogenase Angiotensin Convert Enz Vit D 1,25-Dihydroxy PTH Intact Urine Color Urine Clarity Urine pH Ur Specific [place] Urine Protein Urine Glucose (UA) Urine Ketones Urine Occult Blood Urine Nitrite Urine Bilirubin Urine Urobilinogen Ur Leukocyte Esterase Urine RBC Urine WBC Ur Squamous Epith Cells Urine Bacteria Urine Mucus IgG IgA IgM IgE Miscellaneous Test Medical Necessity - Tobacco Use Smoking Status: Never smoker Tobacco Use: Non-smoker Assessment/Plan All Active Problems Severe anemia (Acute) Hyponatremia (Acute) Hypercalcemia (Acute) 1. Anemia - s/p 1 unit prbc. microcytic. ldh neg. low iron, tibc, normal iron sat, high ferritin. Stool occult blood negative. PTH, LUCIA, Vit D, IgG,A,M,E pending. 2. Extensive Lymphadenopathy - needs bronch/bx. Pulm and Oncology following. Lymphoma vs Sarcoidosis. 3. Hypercalcemia, hyponatremia - continue IV fluids 4. RISA - improved. CKD IV. Renal consulted. 5. RA - chronic prednisone and leflunomide (held) 6. HTN - stable 7. Fever of unknown origin - monitor for the development of symptoms that would indicate source DVT ppx: SCDs This patient was seen by Jose Alfredo Wagner PA-C under the supervision of Doctor Rod. <Selina Velasco - Last Filed: 12/14/17 14:49> - Physical Exam Vital Signs Temp Pulse Resp BP Pulse Ox 99.0 F 110 H 16 128/58 H 96 12/14/17 08:30 12/14/17 11:00 12/14/17 08:30 12/14/17 08:30 12/14/17 08:30 Oxygen Delivery Method Room Air Weight: 98.7 kg Body Mass Index (BMI) 35.1 Intake and Output for Last 24 Hours 12/12/17 12/13/17 12/14/17 23:59 23:59 23:59 Intake Total 1392 / 1392 1163 / 1163 Output Total 500 / 500 900 / 900 Balance 892 / 892 263 / 263 Laboratory Tests Past 24 Hrs 12/13/17 12/13/17 12/13/17 17:33 17:33 17:33 WBC 8.9 RBC 3.12 L Hgb 7.9 L Hct 25.0 L MCV 80.1 L MCH 25.3 L MCHC 31.6 L RDW 17.3 H RDW Differential 50.9 H Plt Count 265 MPV 8.1 Immature Gran % (Auto) 2.400 H Neut % (Auto) 80.7 H Lymph % (Auto) 9.1 L [place] % (Auto) 7.2 Eos % (Auto) 0.6 Baso % (Auto) 0.0 Absolute Neuts (auto) 7.2 Absolute Lymphs (auto) 0.81 L Total Counted Not Reportable Neutrophils % (Manual) Band Neutrophils % Lymphocytes % (Manual) Monocytes % (Manual) Metamyelocytes % Diff Path Review May foll Platelet Estimate ADEQUATE Polychromasia RARE Hypochromasia 1+ Anisocytosis RARE Microcytosis 1+ Leo Cells RARE Sodium 129 L Potassium 3.8 Chloride 98 Carbon Dioxide 18.0 L Anion Gap 13 BUN 50 H Creatinine 2.77 H Estim Creat Clear Calc 20.98 Est GFR (MDRD) Af Amer 23 L Est GFR (MDRD) Non-Af 19 L BUN/Creatinine Ratio 18.1 Glucose 88 Calcium 11.7 H Iron 28 L TIBC 141 L Iron Saturation 19.9 Ferritin 5487 H Lactate Dehydrogenase 147 Angiotensin Convert Enz Vit D 1,25-Dihydroxy PTH Intact Pending Urine Color Urine Clarity Urine pH Ur Specific [place] Urine Protein Urine Glucose (UA) Urine Ketones Urine Occult Blood Urine Nitrite Urine Bilirubin Urine Urobilinogen Ur Leukocyte Esterase Urine RBC Urine WBC Ur Squamous Epith Cells Urine Bacteria Urine Mucus IgG IgA IgM IgE Miscellaneous Test 12/13/17 12/13/17 12/13/17 17:33 17:33 17:33 WBC RBC Hgb Hct MCV MCH MCHC RDW RDW Differential Plt Count MPV Immature Gran % (Auto) Neut % (Auto) Lymph % (Auto) [place] % (Auto) Eos % (Auto) Baso % (Auto) Absolute Neuts (auto) Absolute Lymphs (auto) Total Counted Neutrophils % (Manual) Band Neutrophils % Lymphocytes % (Manual) Monocytes % (Manual) Metamyelocytes % Diff Path Review Platelet Estimate Polychromasia Hypochromasia Anisocytosis Microcytosis Mcclure Cells Sodium Potassium Chloride Carbon Dioxide Anion Gap BUN Creatinine Estim Creat Clear Calc Est GFR (MDRD) Af Amer Est GFR (MDRD) Non-Af BUN/Creatinine Ratio Glucose Calcium Iron TIBC Iron Saturation Ferritin Lactate Dehydrogenase Angiotensin Convert Enz Pending Vit D 1,25-Dihydroxy Pending PTH Intact Urine Color Urine Clarity Urine pH Ur Specific [place] Urine Protein Urine Glucose (UA) Urine Ketones Urine Occult Blood Urine Nitrite Urine Bilirubin Urine Urobilinogen Ur Leukocyte Esterase Urine RBC Urine WBC Ur Squamous Epith Cells Urine Bacteria Urine Mucus IgG Pending IgA Pending IgM Pending IgE Pending Miscellaneous Test 12/13/17 12/14/17 12/14/17 17:33 02:30 05:40 WBC RBC Hgb Hct MCV MCH MCHC RDW RDW Differential Plt Count MPV Immature Gran % (Auto) Neut % (Auto) Lymph % (Auto) [place] % (Auto) Eos % (Auto) Baso % (Auto) Absolute Neuts (auto) Absolute Lymphs (auto) Total Counted Neutrophils % (Manual) Band Neutrophils % Lymphocytes % (Manual) Monocytes % (Manual) Metamyelocytes % Diff Path Review Platelet Estimate Polychromasia Hypochromasia Anisocytosis Microcytosis Mcclure Cells Sodium 131 L Potassium 3.7 Chloride 101 Carbon Dioxide 17.0 L Anion Gap 13 BUN 46 H Creatinine 2.52 H Estim Creat Clear Calc 23.06 Est GFR (MDRD) Af Amer 25 L Est GFR (MDRD) Non-Af 21 L BUN/Creatinine Ratio 18.3 Glucose 82 Calcium 11.1 H Iron TIBC Iron Saturation Ferritin Lactate Dehydrogenase Angiotensin Convert Enz Vit D 1,25-Dihydroxy PTH Intact Urine Color Yellow Urine Clarity Sl. Cloudy Urine pH 6.0 Ur Specific [place] 1.010 Urine Protein 30 H Urine Glucose (UA) Normal Urine Ketones Negative Urine Occult Blood 25 H Urine Nitrite Negative Urine Bilirubin Negative Urine Urobilinogen 1 H Ur Leukocyte Esterase 500 H Urine RBC 0 SEEN Urine WBC 25-50 SEEN Ur Squamous Epith Cells 0-5 SEEN Urine Bacteria 1+ Urine Mucus 0 SEEN IgG IgA IgM IgE Miscellaneous Test Pending 12/14/17 05:40 WBC 8.6 RBC 2.94 L Hgb 7.5 L Hct 23.6 L MCV 80.3 L MCH 25.5 L MCHC 31.8 L RDW 17.4 H RDW Differential 48.7 H Plt Count 308 MPV 8.1 Immature Gran % (Auto) Neut % (Auto) Not Reportable Lymph % (Auto) [place] % (Auto) Eos % (Auto) Baso % (Auto) Absolute Neuts (auto) 7.2 Absolute Lymphs (auto) 0.60 L Total Counted 100 Neutrophils % (Manual) 77 H Band Neutrophils % 7 H Lymphocytes % (Manual) 7 L Monocytes % (Manual) 8 Metamyelocytes % 1 Diff Path Review May foll Platelet Estimate ADEQUATE Polychromasia 1+ Hypochromasia 1+ Anisocytosis 1+ Microcytosis Leo Cells Sodium Potassium Chloride Carbon Dioxide Anion Gap BUN Creatinine Estim Creat Clear Calc Est GFR (MDRD) Af Amer Est GFR (MDRD) Non-Af BUN/Creatinine Ratio Glucose Calcium Iron TIBC Iron Saturation Ferritin Lactate Dehydrogenase Angiotensin Convert Enz Vit D 1,25-Dihydroxy PTH Intact Urine Color Urine Clarity Urine pH Ur Specific [place] Urine Protein Urine Glucose (UA) Urine Ketones Urine Occult Blood Urine Nitrite Urine Bilirubin Urine Urobilinogen Ur Leukocyte Esterase Urine RBC Urine WBC Ur Squamous Epith Cells Urine Bacteria Urine Mucus IgG IgA IgM IgE Miscellaneous Test Assessment/Plan Patient seen and examined independently. I agree with the interval history, physical exam and assessment and plan as documented above by physician assistant professor, Jose Alfredo Wagner. Patient still appears weak, has a flat affect, had some fever overnight, T-max was 100.0 F. She denies any other symptoms. No cough or shortness of breath or dysuria or frequency Vitals reviewed remained stable except for fever and tachycardia Labs reviewed, hypercalcemia and hyponatremia very slightly improved Physical exam is unchanged Discussed extensively with oncologist and admissions director -patient would need an outpatient EBUS. All other labs are pending, will continue to hydrate patient aggressively If repeat corrected calcium tomorrow after aggressive hydration is still high, will consider giving zoledronic acid with/without calcitonin We will consult nephrology to establish and follow as patient will need alf follow-up. Code Visit Inpatient E&M: 15483 Subs Hosp L3
--- NOTE | 2017-12-14 13:40 | PN_ITS ---
<Jose Alfredo Wagner - Last Filed: 12/14/17 13:33> Patient Problems: Active and Suspected Problems Severe anemia (Acute) Hyponatremia (Acute) Hypercalcemia (Acute) Subjective: Pt resting comfortably in bed. She feels SOB when moving her bowels. Otherwise no complaints. No dysuria. No fever/chills. No abdominal pain. - Physical Exam General: Alert, Oriented x3, Cooperative HEENT: Atraumatic, PERRLA, EOMI, Normocephalic Neck: Supple, No JVD, Negative Carotid Bruits Lungs: Clear to auscultation, Normal air movement Cardiovascular: Regular rate, No murmurs Abdomen: Bowel Sounds Present, Soft, Non Tender Extremities: No edema, Capillary Refill Less than 3 Seconds Skin: No rashes, No breakdown Musculoskeletal: No Tenderness to Palpation of Joints or Extremities Neurological: Cranial nerves II-XII grossly intact Psych/Mental Status: Depressed, Alert and oriented to time, place, person, mood and affect Vital Signs Temp Pulse Resp BP Pulse Ox 99.0 F 110 H 16 128/58 H 96 12/14/17 08:30 12/14/17 11:00 12/14/17 08:30 12/14/17 08:30 12/14/17 08:30 Oxygen Delivery Method Room Air Weight: 217 lb 9.54 oz Body Mass Index (BMI) 35.1 Intake and Output for Last 24 Hours 12/12/17 12/13/17 12/14/17 23:59 23:59 23:59 Intake Total 1392 / 1392 1163 / 1163 Output Total 500 / 500 900 / 900 Balance 892 / 892 263 / 263 Laboratory Tests Past 24 Hrs 12/13/17 12/13/17 12/13/17 17:33 17:33 17:33 WBC 8.9 RBC 3.12 L Hgb 7.9 L Hct 25.0 L MCV 80.1 L MCH 25.3 L MCHC 31.6 L RDW 17.3 H RDW Differential 50.9 H Plt Count 265 MPV 8.1 Immature Gran % (Auto) 2.400 H Neut % (Auto) 80.7 H Lymph % (Auto) 9.1 L [place] % (Auto) 7.2 Eos % (Auto) 0.6 Baso % (Auto) 0.0 Absolute Neuts (auto) 7.2 Absolute Lymphs (auto) 0.81 L Total Counted Not Reportable Neutrophils % (Manual) Band Neutrophils % Lymphocytes % (Manual) Monocytes % (Manual) Metamyelocytes % Diff Path Review May foll Platelet Estimate ADEQUATE Polychromasia RARE Hypochromasia 1+ Anisocytosis RARE Microcytosis 1+ Kirby Cells RARE Sodium 129 L Potassium 3.8 Chloride 98 Carbon Dioxide 18.0 L Anion Gap 13 BUN 50 H Creatinine 2.77 H Estim Creat Clear Calc 20.98 Est GFR (MDRD) Af Amer 23 L Est GFR (MDRD) Non-Af 19 L BUN/Creatinine Ratio 18.1 Glucose 88 Calcium 11.7 H Iron 28 L TIBC 141 L Iron Saturation 19.9 Ferritin 5487 H Lactate Dehydrogenase 147 Angiotensin Convert Enz Vit D 1,25-Dihydroxy PTH Intact Pending Urine Color Urine Clarity Urine pH Ur Specific [place] Urine Protein Urine Glucose (UA) Urine Ketones Urine Occult Blood Urine Nitrite Urine Bilirubin Urine Urobilinogen Ur Leukocyte Esterase Urine RBC Urine WBC Ur Squamous Epith Cells Urine Bacteria Urine Mucus IgG IgA IgM IgE Miscellaneous Test 12/13/17 12/13/17 12/13/17 17:33 17:33 17:33 WBC RBC Hgb Hct MCV MCH MCHC RDW RDW Differential Plt Count MPV Immature Gran % (Auto) Neut % (Auto) Lymph % (Auto) [place] % (Auto) Eos % (Auto) Baso % (Auto) Absolute Neuts (auto) Absolute Lymphs (auto) Total Counted Neutrophils % (Manual) Band Neutrophils % Lymphocytes % (Manual) Monocytes % (Manual) Metamyelocytes % Diff Path Review Platelet Estimate Polychromasia Hypochromasia Anisocytosis Microcytosis Leo Cells Sodium Potassium Chloride Carbon Dioxide Anion Gap BUN Creatinine Estim Creat Clear Calc Est GFR (MDRD) Af Amer Est GFR (MDRD) Non-Af BUN/Creatinine Ratio Glucose Calcium Iron TIBC Iron Saturation Ferritin Lactate Dehydrogenase Angiotensin Convert Enz Pending Vit D 1,25-Dihydroxy Pending PTH Intact Urine Color Urine Clarity Urine pH Ur Specific [place] Urine Protein Urine Glucose (UA) Urine Ketones Urine Occult Blood Urine Nitrite Urine Bilirubin Urine Urobilinogen Ur Leukocyte Esterase Urine RBC Urine WBC Ur Squamous Epith Cells Urine Bacteria Urine Mucus IgG Pending IgA Pending IgM Pending IgE Pending Miscellaneous Test 12/13/17 12/14/17 12/14/17 17:33 02:30 05:40 WBC RBC Hgb Hct MCV MCH MCHC RDW RDW Differential Plt Count MPV Immature Gran % (Auto) Neut % (Auto) Lymph % (Auto) [place] % (Auto) Eos % (Auto) Baso % (Auto) Absolute Neuts (auto) Absolute Lymphs (auto) Total Counted Neutrophils % (Manual) Band Neutrophils % Lymphocytes % (Manual) Monocytes % (Manual) Metamyelocytes % Diff Path Review Platelet Estimate Polychromasia Hypochromasia Anisocytosis Microcytosis Leo Cells Sodium 131 L Potassium 3.7 Chloride 101 Carbon Dioxide 17.0 L Anion Gap 13 BUN 46 H Creatinine 2.52 H Estim Creat Clear Calc 23.06 Est GFR (MDRD) Af Amer 25 L Est GFR (MDRD) Non-Af 21 L BUN/Creatinine Ratio 18.3 Glucose 82 Calcium 11.1 H Iron TIBC Iron Saturation Ferritin Lactate Dehydrogenase Angiotensin Convert Enz Vit D 1,25-Dihydroxy PTH Intact Urine Color Yellow Urine Clarity Sl. Cloudy Urine pH 6.0 Ur Specific [place] 1.010 Urine Protein 30 H Urine Glucose (UA) Normal Urine Ketones Negative Urine Occult Blood 25 H Urine Nitrite Negative Urine Bilirubin Negative Urine Urobilinogen 1 H Ur Leukocyte Esterase 500 H Urine RBC 0 SEEN Urine WBC 25-50 SEEN Ur Squamous Epith Cells 0-5 SEEN Urine Bacteria 1+ Urine Mucus 0 SEEN IgG IgA IgM IgE Miscellaneous Test Pending 12/14/17 05:40 WBC 8.6 RBC 2.94 L Hgb 7.5 L Hct 23.6 L MCV 80.3 L MCH 25.5 L MCHC 31.8 L RDW 17.4 H RDW Differential 48.7 H Plt Count 308 MPV 8.1 Immature Gran % (Auto) Neut % (Auto) Not Reportable Lymph % (Auto) [place] % (Auto) Eos % (Auto) Baso % (Auto) Absolute Neuts (auto) 7.2 Absolute Lymphs (auto) 0.60 L Total Counted 100 Neutrophils % (Manual) 77 H Band Neutrophils % 7 H Lymphocytes % (Manual) 7 L Monocytes % (Manual) 8 Metamyelocytes % 1 Diff Path Review May foll Platelet Estimate ADEQUATE Polychromasia 1+ Hypochromasia 1+ Anisocytosis 1+ Microcytosis Leo Cells Sodium Potassium Chloride Carbon Dioxide Anion Gap BUN Creatinine Estim Creat Clear Calc Est GFR (MDRD) Af Amer Est GFR (MDRD) Non-Af BUN/Creatinine Ratio Glucose Calcium Iron TIBC Iron Saturation Ferritin Lactate Dehydrogenase Angiotensin Convert Enz Vit D 1,25-Dihydroxy PTH Intact Urine Color Urine Clarity Urine pH Ur Specific [place] Urine Protein Urine Glucose (UA) Urine Ketones Urine Occult Blood Urine Nitrite Urine Bilirubin Urine Urobilinogen Ur Leukocyte Esterase Urine RBC Urine WBC Ur Squamous Epith Cells Urine Bacteria Urine Mucus IgG IgA IgM IgE Miscellaneous Test Medical Necessity - Tobacco Use Smoking Status: Never smoker Tobacco Use: Non-smoker Assessment/Plan All Active Problems Severe anemia (Acute) Hyponatremia (Acute) Hypercalcemia (Acute) 1. Anemia - s/p 1 unit prbc. microcytic. ldh neg. low iron, tibc, normal iron sat, high ferritin. Stool occult blood negative. PTH, LUCIA, Vit D, IgG,A,M,E pending. 2. Extensive Lymphadenopathy - needs bronch/bx. Pulm and Oncology following. Lymphoma vs Sarcoidosis. 3. Hypercalcemia, hyponatremia - continue IV fluids 4. RISA - improved. CKD IV. Renal consulted. 5. RA - chronic prednisone and leflunomide (held) 6. HTN - stable 7. Fever of unknown origin - monitor for the development of symptoms that would indicate source DVT ppx: SCDs This patient was seen by Jose Alfredo Wagner PA-C under the supervision of Doctor Rod. <Selina Velasco - Last Filed: 12/14/17 14:49> - Physical Exam Vital Signs Temp Pulse Resp BP Pulse Ox 99.0 F 110 H 16 128/58 H 96 12/14/17 08:30 12/14/17 11:00 12/14/17 08:30 12/14/17 08:30 12/14/17 08:30 Oxygen Delivery Method Room Air Weight: 98.7 kg Body Mass Index (BMI) 35.1 Intake and Output for Last 24 Hours 12/12/17 12/13/17 12/14/17 23:59 23:59 23:59 Intake Total 1392 / 1392 1163 / 1163 Output Total 500 / 500 900 / 900 Balance 892 / 892 263 / 263 Laboratory Tests Past 24 Hrs 12/13/17 12/13/17 12/13/17 17:33 17:33 17:33 WBC 8.9 RBC 3.12 L Hgb 7.9 L Hct 25.0 L MCV 80.1 L MCH 25.3 L MCHC 31.6 L RDW 17.3 H RDW Differential 50.9 H Plt Count 265 MPV 8.1 Immature Gran % (Auto) 2.400 H Neut % (Auto) 80.7 H Lymph % (Auto) 9.1 L [place] % (Auto) 7.2 Eos % (Auto) 0.6 Baso % (Auto) 0.0 Absolute Neuts (auto) 7.2 Absolute Lymphs (auto) 0.81 L Total Counted Not Reportable Neutrophils % (Manual) Band Neutrophils % Lymphocytes % (Manual) Monocytes % (Manual) Metamyelocytes % Diff Path Review May foll Platelet Estimate ADEQUATE Polychromasia RARE Hypochromasia 1+ Anisocytosis RARE Microcytosis 1+ Leo Cells RARE Sodium 129 L Potassium 3.8 Chloride 98 Carbon Dioxide 18.0 L Anion Gap 13 BUN 50 H Creatinine 2.77 H Estim Creat Clear Calc 20.98 Est GFR (MDRD) Af Amer 23 L Est GFR (MDRD) Non-Af 19 L BUN/Creatinine Ratio 18.1 Glucose 88 Calcium 11.7 H Iron 28 L TIBC 141 L Iron Saturation 19.9 Ferritin 5487 H Lactate Dehydrogenase 147 Angiotensin Convert Enz Vit D 1,25-Dihydroxy PTH Intact Pending Urine Color Urine Clarity Urine pH Ur Specific [place] Urine Protein Urine Glucose (UA) Urine Ketones Urine Occult Blood Urine Nitrite Urine Bilirubin Urine Urobilinogen Ur Leukocyte Esterase Urine RBC Urine WBC Ur Squamous Epith Cells Urine Bacteria Urine Mucus IgG IgA IgM IgE Miscellaneous Test 12/13/17 12/13/17 12/13/17 17:33 17:33 17:33 WBC RBC Hgb Hct MCV MCH MCHC RDW RDW Differential Plt Count MPV Immature Gran % (Auto) Neut % (Auto) Lymph % (Auto) [place] % (Auto) Eos % (Auto) Baso % (Auto) Absolute Neuts (auto) Absolute Lymphs (auto) Total Counted Neutrophils % (Manual) Band Neutrophils % Lymphocytes % (Manual) Monocytes % (Manual) Metamyelocytes % Diff Path Review Platelet Estimate Polychromasia Hypochromasia Anisocytosis Microcytosis Kirby Cells Sodium Potassium Chloride Carbon Dioxide Anion Gap BUN Creatinine Estim Creat Clear Calc Est GFR (MDRD) Af Amer Est GFR (MDRD) Non-Af BUN/Creatinine Ratio Glucose Calcium Iron TIBC Iron Saturation Ferritin Lactate Dehydrogenase Angiotensin Convert Enz Pending Vit D 1,25-Dihydroxy Pending PTH Intact Urine Color Urine Clarity Urine pH Ur Specific [place] Urine Protein Urine Glucose (UA) Urine Ketones Urine Occult Blood Urine Nitrite Urine Bilirubin Urine Urobilinogen Ur Leukocyte Esterase Urine RBC Urine WBC Ur Squamous Epith Cells Urine Bacteria Urine Mucus IgG Pending IgA Pending IgM Pending IgE Pending Miscellaneous Test 12/13/17 12/14/17 12/14/17 17:33 02:30 05:40 WBC RBC Hgb Hct MCV MCH MCHC RDW RDW Differential Plt Count MPV Immature Gran % (Auto) Neut % (Auto) Lymph % (Auto) [place] % (Auto) Eos % (Auto) Baso % (Auto) Absolute Neuts (auto) Absolute Lymphs (auto) Total Counted Neutrophils % (Manual) Band Neutrophils % Lymphocytes % (Manual) Monocytes % (Manual) Metamyelocytes % Diff Path Review Platelet Estimate Polychromasia Hypochromasia Anisocytosis Microcytosis Kirby Cells Sodium 131 L Potassium 3.7 Chloride 101 Carbon Dioxide 17.0 L Anion Gap 13 BUN 46 H Creatinine 2.52 H Estim Creat Clear Calc 23.06 Est GFR (MDRD) Af Amer 25 L Est GFR (MDRD) Non-Af 21 L BUN/Creatinine Ratio 18.3 Glucose 82 Calcium 11.1 H Iron TIBC Iron Saturation Ferritin Lactate Dehydrogenase Angiotensin Convert Enz Vit D 1,25-Dihydroxy PTH Intact Urine Color Yellow Urine Clarity Sl. Cloudy Urine pH 6.0 Ur Specific [place] 1.010 Urine Protein 30 H Urine Glucose (UA) Normal Urine Ketones Negative Urine Occult Blood 25 H Urine Nitrite Negative Urine Bilirubin Negative Urine Urobilinogen 1 H Ur Leukocyte Esterase 500 H Urine RBC 0 SEEN Urine WBC 25-50 SEEN Ur Squamous Epith Cells 0-5 SEEN Urine Bacteria 1+ Urine Mucus 0 SEEN IgG IgA IgM IgE Miscellaneous Test Pending 12/14/17 05:40 WBC 8.6 RBC 2.94 L Hgb 7.5 L Hct 23.6 L MCV 80.3 L MCH 25.5 L MCHC 31.8 L RDW 17.4 H RDW Differential 48.7 H Plt Count 308 MPV 8.1 Immature Gran % (Auto) Neut % (Auto) Not Reportable Lymph % (Auto) [place] % (Auto) Eos % (Auto) Baso % (Auto) Absolute Neuts (auto) 7.2 Absolute Lymphs (auto) 0.60 L Total Counted 100 Neutrophils % (Manual) 77 H Band Neutrophils % 7 H Lymphocytes % (Manual) 7 L Monocytes % (Manual) 8 Metamyelocytes % 1 Diff Path Review May foll Platelet Estimate ADEQUATE Polychromasia 1+ Hypochromasia 1+ Anisocytosis 1+ Microcytosis Leo Cells Sodium Potassium Chloride Carbon Dioxide Anion Gap BUN Creatinine Estim Creat Clear Calc Est GFR (MDRD) Af Amer Est GFR (MDRD) Non-Af BUN/Creatinine Ratio Glucose Calcium Iron TIBC Iron Saturation Ferritin Lactate Dehydrogenase Angiotensin Convert Enz Vit D 1,25-Dihydroxy PTH Intact Urine Color Urine Clarity Urine pH Ur Specific [place] Urine Protein Urine Glucose (UA) Urine Ketones Urine Occult Blood Urine Nitrite Urine Bilirubin Urine Urobilinogen Ur Leukocyte Esterase Urine RBC Urine WBC Ur Squamous Epith Cells Urine Bacteria Urine Mucus IgG IgA IgM IgE Miscellaneous Test Assessment/Plan Patient seen and examined independently. I agree with the interval history, physical exam and assessment and plan as documented above by physician human resources office assistant , Jose Alfredo Wagner. Patient still appears weak, has a flat affect, had some fever overnight, T-max was 100.0 F. She denies any other symptoms. No cough or shortness of breath or dysuria or frequency Vitals reviewed remained stable except for fever and tachycardia Labs reviewed, hypercalcemia and hyponatremia very slightly improved Physical exam is unchanged Discussed extensively with oncologist and dryerman/woman -patient would need an outpatient EBUS. All other labs are pending, will continue to hydrate patient aggressively If repeat corrected calcium tomorrow after aggressive hydration is still high, will consider giving zoledronic acid with/without calcitonin We will consult nephrology to establish and follow as patient will need intermediate follow-up. Code Visit Inpatient E&M: 28000 Subs Hosp L3
[2017-12-14] MEDS: 0.9% Normal Saline 1,000 ML 200 ML IV ×2 (15:03→20:53)
--- NOTE | 2017-12-14 18:53 | PCM.CONS.R ---
Consultation - Renal PCP/ Referring MD: Requesting physician: Dr. Velasco Primary care physician: Dr. Colton Ramachandran Reason for Consultation:: RISA on CKD - History of Present Illness History of Present Illness: The patient is a 57 year old F with past history of CAD, HTN, and rheumatoid arthritis is admitted 12/13/17 with a one month history of progressive malaise and weakness. In addition to feeling generally unwell, she cannot be more specific about her complaints. She did have nausea prior to admission with anorexia per family. She denies diarrhea or constipation. Work up on presentation revealed lymphadenopathy throughout the mediastinum, subcarina region and right root of the left hilum as well as in the upper abdomen. This accompanies moderate to severe splenomegaly. The pt was also found to have an elevated SCr at 2.96 mg/dL associated with hyponatremia (Na 125) and hypercalcemia with calcium of 11.9. Pt has not been taking vitamin D or calcium supplement. Of note, she was admitted at [facility] between 11/02-11/05/17. She was also noted to have RISA at that time along with hyponatremia which resolved with IVF. It is unclear what her calcium level was. There has been no exposure to IV contrast. There is no chronic use of NSAID. The pt remains taciturn during my interview and did not respond to many of my questions. - Allergies Allergies: Allergies No Known Allergies Allergy (Verified 12/13/17 09:06) - Current Medications Current Medications: Current Medications Albuterol/Ipratropium (Duoneb) 3 ml INHALATION Q4H.RT [facility] Last Admin: 12/14/17 15:00 Dose: Not Given Amlodipine Besylate (Norvasc) 5 mg PO DAILY [facility] Last Admin: 12/14/17 08:31 Dose: 5 mg Sodium Chloride () 1,000 mls @ 200 mls/hr IV .Q5H [facility] Last Admin: 12/14/17 15:03 Dose: 200 mls/hr Magnesium Hydroxide (Milk Of Magnesia) 30 ml PO DAILY PRN PRN Reason: Constipation Ondansetron HCl (Zofran) 4 mg IV Q8H PRN PRN PRN Reason: NAUSEA Prednisone () 2.5 mg PO DAILYCM [facility] Last Admin: 12/14/17 08:31 Dose: 2.5 mg Sodium Chloride () 5 - 30 ml IV UD PRN PRN Reason: SALINE FLUSH - Past Medical History Past Medical History (Chronic Problems): Chronic Problems Hypertension (Chronic) Rheumatoid arthritis (Chronic) Lymphadenopathy, mediastinal (Chronic) Hepatosplenomegaly (Chronic) - Past Surgical History Surgical History: - - caesarian section - Social History Smoking Status: Never smoker Alcohol: None Drugs: None - Family History Maternal History Items: No pertinent history Paternal History Items: No pertinent history Review of Systems Constitutional: Reports: Malaise, Weakness Eyes: Denies: Blurred vision, Pain HEENT: Denies: Head Aches, Sinus Congestion, Sinus Drainage Cardiovascular: Denies: Chest Pain, Palpitations Respiratory: Denies: Cough, Shortness of breath at rest, Sputum production Gastrointestinal: Denies: Abdominal Pain, Nausea, Vomiting Genitourinary: Denies: Dysuria Musculoskeletal: Denies: Joint Pain, Joint Tenderness Skin: Denies: Rash, Wounds Hematologic/ Lymphatic: Reports: Adenopathy Patient Problems: Active and Suspected Problems Severe anemia (Acute) Hyponatremia (Acute) Hypercalcemia (Acute) - Physical Exam General: - - Ill appearing. Slow to respond HEENT: Atraumatic, PERRLA, - - MM dry Oral: Dry Mucosa Neck: Supple, No JVD Lungs: Clear to auscultation Cardiovascular: Normal S1, Normal S2, No murmurs Abdomen: Soft, Non Tender, Non-Distended Extremities: No clubbing, No cyanosis, No edema Skin: No rashes Musculoskeletal: No Tenderness to Palpation of Joints or Extremities Psych/Mental Status: Flat Affect Vital Signs Temp Pulse Resp BP Pulse Ox 100.0 F H 100 18 133/57 H 95 12/14/17 14:30 12/14/17 14:56 12/14/17 14:30 12/14/17 14:30 12/14/17 14:30 Oxygen Delivery Method Room Air Weight: 98.7 kg Body Mass Index (BMI) 35.1 Intake and Output for Last 24 Hours 12/12/17 12/13/17 12/14/17 23:59 23:59 23:59 Intake Total 1392 / 1392 2370 / 2370 Output Total 500 / 500 1200 / 1200 Balance 892 / 892 1170 / 1170 Laboratory Tests Past 24 Hrs 12/13/17 12/14/17 12/14/17 17:33 02:30 05:40 WBC RBC Hgb Hct MCV MCH MCHC RDW RDW Differential Plt Count MPV Neut % (Auto) Absolute Neuts (auto) Absolute Lymphs (auto) Total Counted Neutrophils % (Manual) Band Neutrophils % Lymphocytes % (Manual) Monocytes % (Manual) Metamyelocytes % Diff Path Review Platelet Estimate Polychromasia Hypochromasia Anisocytosis Sodium 131 L Potassium 3.7 Chloride 101 Carbon Dioxide 17.0 L Anion Gap 13 BUN 46 H Creatinine 2.52 H Estim Creat Clear Calc 23.06 Est GFR (MDRD) Af Amer 25 L Est GFR (MDRD) Non-Af 21 L BUN/Creatinine Ratio 18.3 Glucose 82 Calcium 11.1 H Urine Color Yellow Urine Clarity Sl. Cloudy Urine pH 6.0 Ur Specific [place] 1.010 Urine Protein 30 H Urine Glucose (UA) Normal Urine Ketones Negative Urine Occult Blood 25 H Urine Nitrite Negative Urine Bilirubin Negative Urine Urobilinogen 1 H Ur Leukocyte Esterase 500 H Urine RBC 0 SEEN Urine WBC 25-50 SEEN Ur Squamous Epith Cells 0-5 SEEN Urine Bacteria 1+ Urine Mucus 0 SEEN Miscellaneous Test Pending 12/14/17 05:40 WBC 8.6 RBC 2.94 L Hgb 7.5 L Hct 23.6 L MCV 80.3 L MCH 25.5 L MCHC 31.8 L RDW 17.4 H RDW Differential 48.7 H Plt Count 308 MPV 8.1 Neut % (Auto) Not Reportable Absolute Neuts (auto) 7.2 Absolute Lymphs (auto) 0.60 L Total Counted 100 Neutrophils % (Manual) 77 H Band Neutrophils % 7 H Lymphocytes % (Manual) 7 L Monocytes % (Manual) 8 Metamyelocytes % 1 Diff Path Review May foll Platelet Estimate ADEQUATE Polychromasia 1+ Hypochromasia 1+ Anisocytosis 1+ Sodium Potassium Chloride Carbon Dioxide Anion Gap BUN Creatinine Estim Creat Clear Calc Est GFR (MDRD) Af Amer Est GFR (MDRD) Non-Af BUN/Creatinine Ratio Glucose Calcium Urine Color Urine Clarity Urine pH Ur Specific [place] Urine Protein Urine Glucose (UA) Urine Ketones Urine Occult Blood Urine Nitrite Urine Bilirubin Urine Urobilinogen Ur Leukocyte Esterase Urine RBC Urine WBC Ur Squamous Epith Cells Urine Bacteria Urine Mucus Miscellaneous Test Assessment/Plan All Active Problems Severe anemia (Acute) Hyponatremia (Acute) Hypercalcemia (Acute) 1. Acute kidney injury on reported chronic kidney disease. Unclear what baseline renal function is. No prior SCr at this hospital to compare with current values. RISA is likely due to prerenal azotemia since renal function is improving with IVF. Hypercalcemia can lead to polyuria and volume depletion as well as direct toxic effect on the kidney. ATN is also possible though treatment remains the same at this time (volume repletion). Agree with IVF and follow renal function. Low suspicion for other causes of RISA at this time-UA did not show significant hematuria or proteinuria, so GN/vasculitis is less likely. Will check urine indices. Check renal US to assess kidney sizes though doubt obstruction. Continue IVF since pt does not look volume OL. Recheck renal function in am. There is no current need for dialysis. Medications were reviewed. All are appropriately dosed for current CrCl. 2. Hypercalcemia. Work up is underway. PTH is pending. If not PTH mediated, I would also check SPEP and UPEP. Suspect hypercalcemia could be related to granulomatous process such as lymphoma or sarcoidosis. Agree with IVF-calcium is trending down. If calcium trends the wrong way, we can consider bisphosphonate later. 3. Hyponatremia. Resolving with IVF, so suspect pt has hypovolemic hypoosmolar hyponatremia from volume depletion. Continue IVF. Check Malika and Uosm.
--- NOTE | 2017-12-14 18:59 | CON.PCM_ITS ---
Consultation - Renal PCP/ Referring MD: Requesting physician: Dr. Velasco Primary care physician: Dr. Colton Ramachandran Reason for Consultation:: RISA on CKD - History of Present Illness History of Present Illness: The patient is a 57 year old F with past history of CAD, HTN, and rheumatoid arthritis is admitted 12/13/17 with a one month history of progressive malaise and weakness. In addition to feeling generally unwell, she cannot be more specific about her complaints. She did have nausea prior to admission with anorexia per family. She denies diarrhea or constipation. Work up on presentation revealed lymphadenopathy throughout the mediastinum, subcarina region and right root of the left hilum as well as in the upper abdomen. This accompanies moderate to severe splenomegaly. The pt was also found to have an elevated SCr at 2.96 mg/dL associated with hyponatremia (Na 125) and hypercalcemia with calcium of 11.9. Pt has not been taking vitamin D or calcium supplement. Of note, she was admitted at [facility] between 11/02-11/05/17. She was also noted to have RIAS at that time along with hyponatremia which resolved with IVF. It is unclear what her calcium level was. There has been no exposure to IV contrast. There is no chronic use of NSAID. The pt remains taciturn during my interview and did not respond to many of my questions. - Allergies Allergies: Allergies No Known Allergies Allergy (Verified 12/13/17 09:06) - Current Medications Current Medications: Current Medications Albuterol/Ipratropium (Duoneb) 3 ml INHALATION Q4H.RT [facility] Last Admin: 12/14/17 15:00 Dose: Not Given Amlodipine Besylate (Norvasc) 5 mg PO DAILY [facility] Last Admin: 12/14/17 08:31 Dose: 5 mg Sodium Chloride () 1,000 mls @ 200 mls/hr IV .Q5H [facility] Last Admin: 12/14/17 15:03 Dose: 200 mls/hr Magnesium Hydroxide (Milk Of Magnesia) 30 ml PO DAILY PRN PRN Reason: Constipation Ondansetron HCl (Zofran) 4 mg IV Q8H PRN PRN PRN Reason: NAUSEA Prednisone () 2.5 mg PO DAILYCM [facility] Last Admin: 12/14/17 08:31 Dose: 2.5 mg Sodium Chloride () 5 - 30 ml IV UD PRN PRN Reason: SALINE FLUSH - Past Medical History Past Medical History (Chronic Problems): Chronic Problems Hypertension (Chronic) Rheumatoid arthritis (Chronic) Lymphadenopathy, mediastinal (Chronic) Hepatosplenomegaly (Chronic) - Past Surgical History Surgical History: - - caesarian section - Social History Smoking Status: Never smoker Alcohol: None Drugs: None - Family History Maternal History Items: No pertinent history Paternal History Items: No pertinent history Review of Systems Constitutional: Reports: Malaise, Weakness Eyes: Denies: Blurred vision, Pain HEENT: Denies: Head Aches, Sinus Congestion, Sinus Drainage Cardiovascular: Denies: Chest Pain, Palpitations Respiratory: Denies: Cough, Shortness of breath at rest, Sputum production Gastrointestinal: Denies: Abdominal Pain, Nausea, Vomiting Genitourinary: Denies: Dysuria Musculoskeletal: Denies: Joint Pain, Joint Tenderness Skin: Denies: Rash, Wounds Hematologic/ Lymphatic: Reports: Adenopathy Patient Problems: Active and Suspected Problems Severe anemia (Acute) Hyponatremia (Acute) Hypercalcemia (Acute) - Physical Exam General: - - Ill appearing. Slow to respond HEENT: Atraumatic, PERRLA, - - MM dry Oral: Dry Mucosa Neck: Supple, No JVD Lungs: Clear to auscultation Cardiovascular: Normal S1, Normal S2, No murmurs Abdomen: Soft, Non Tender, Non-Distended Extremities: No clubbing, No cyanosis, No edema Skin: No rashes Musculoskeletal: No Tenderness to Palpation of Joints or Extremities Psych/Mental Status: Flat Affect Vital Signs Temp Pulse Resp BP Pulse Ox 100.0 F H 100 18 133/57 H 95 12/14/17 14:30 12/14/17 14:56 12/14/17 14:30 12/14/17 14:30 12/14/17 14:30 Oxygen Delivery Method Room Air Weight: 98.7 kg Body Mass Index (BMI) 35.1 Intake and Output for Last 24 Hours 12/12/17 12/13/17 12/14/17 23:59 23:59 23:59 Intake Total 1392 / 1392 2370 / 2370 Output Total 500 / 500 1200 / 1200 Balance 892 / 892 1170 / 1170 Laboratory Tests Past 24 Hrs 12/13/17 12/14/17 12/14/17 17:33 02:30 05:40 WBC RBC Hgb Hct MCV MCH MCHC RDW RDW Differential Plt Count MPV Neut % (Auto) Absolute Neuts (auto) Absolute Lymphs (auto) Total Counted Neutrophils % (Manual) Band Neutrophils % Lymphocytes % (Manual) Monocytes % (Manual) Metamyelocytes % Diff Path Review Platelet Estimate Polychromasia Hypochromasia Anisocytosis Sodium 131 L Potassium 3.7 Chloride 101 Carbon Dioxide 17.0 L Anion Gap 13 BUN 46 H Creatinine 2.52 H Estim Creat Clear Calc 23.06 Est GFR (MDRD) Af Amer 25 L Est GFR (MDRD) Non-Af 21 L BUN/Creatinine Ratio 18.3 Glucose 82 Calcium 11.1 H Urine Color Yellow Urine Clarity Sl. Cloudy Urine pH 6.0 Ur Specific [place] 1.010 Urine Protein 30 H Urine Glucose (UA) Normal Urine Ketones Negative Urine Occult Blood 25 H Urine Nitrite Negative Urine Bilirubin Negative Urine Urobilinogen 1 H Ur Leukocyte Esterase 500 H Urine RBC 0 SEEN Urine WBC 25-50 SEEN Ur Squamous Epith Cells 0-5 SEEN Urine Bacteria 1+ Urine Mucus 0 SEEN Miscellaneous Test Pending 12/14/17 05:40 WBC 8.6 RBC 2.94 L Hgb 7.5 L Hct 23.6 L MCV 80.3 L MCH 25.5 L MCHC 31.8 L RDW 17.4 H RDW Differential 48.7 H Plt Count 308 MPV 8.1 Neut % (Auto) Not Reportable Absolute Neuts (auto) 7.2 Absolute Lymphs (auto) 0.60 L Total Counted 100 Neutrophils % (Manual) 77 H Band Neutrophils % 7 H Lymphocytes % (Manual) 7 L Monocytes % (Manual) 8 Metamyelocytes % [address] Review May foll Platelet Estimate ADEQUATE Polychromasia 1+ Hypochromasia 1+ Anisocytosis 1+ Sodium Potassium Chloride Carbon Dioxide Anion Gap BUN Creatinine Estim Creat Clear Calc Est GFR (MDRD) Af Amer Est GFR (MDRD) Non-Af BUN/Creatinine Ratio Glucose Calcium Urine Color Urine Clarity Urine pH Ur Specific [place] Urine Protein Urine Glucose (UA) Urine Ketones Urine Occult Blood Urine Nitrite Urine Bilirubin Urine Urobilinogen Ur Leukocyte Esterase Urine RBC Urine WBC Ur Squamous Epith Cells Urine Bacteria Urine Mucus Miscellaneous Test Assessment/Plan All Active Problems Severe anemia (Acute) Hyponatremia (Acute) Hypercalcemia (Acute) 1. Acute kidney injury on reported chronic kidney disease. Unclear what baseline renal function is. No prior SCr at this hospital to compare with current values. RISA is likely due to prerenal azotemia since renal function is improving with IVF. Hypercalcemia can lead to polyuria and volume depletion as well as direct toxic effect on the kidney. ATN is also possible though treatment remains the same at this time (volume repletion). Agree with IVF and follow renal function. Low suspicion for other causes of RISA at this time-UA did not show significant hematuria or proteinuria, so GN/vasculitis is less likely. Will check urine indices. Check renal US to assess kidney sizes though doubt obstruction. Continue IVF since pt does not look volume OL. Recheck renal function in am. There is no current need for dialysis. Medications were reviewed. All are appropriately dosed for current CrCl. 2. Hypercalcemia. Work up is underway. PTH is pending. If not PTH mediated, I would also check SPEP and UPEP. Suspect hypercalcemia could be related to granulomatous process such as lymphoma or sarcoidosis. Agree with IVF-calcium is trending down. If calcium trends the wrong way, we can consider bisphosphonate later. 3. Hyponatremia. Resolving with IVF, so suspect pt has hypovolemic hypoosmolar hyponatremia from volume depletion. Continue IVF. Check Malika and Uosm.
--- NOTE | 2017-12-14 19:47 | CPS ---
pt did not like aero tx-could not given clear reason why. started aero tx with mask pt wale poor family tried to talk her in to taking aero tx-
[2017-12-14 22:54] LABS: Urine Sodium 65 mmol/L (Not Establ.)
[2017-12-14 23:21] LABS: Osmolality, Urine 314 mOsm/KG
[2017-12-15] VITALS (17 sets, daily range): BP systolic 112–158; BP diastolic 50–78; PULSE 99–117; RESP 16–35; TEMP 37–38.2; O2SAT 93–100
[2017-12-15] MEDS: 0.9% Normal Saline 1,000 ML 200 ML IV ×2 (02:20→08:04)
--- NOTE | 2017-12-15 05:55 | US_ITS ---
STUDY: RENAL ULTRASOUND - COMPLETE REASON FOR EXAM: Female, 57 years old. Acute renal failure. TECHNIQUE: Ultrasound evaluation of the kidneys was performed with real-time and static maradiaga-scale imaging. COMPARISON: None. FINDINGS: RIGHT KIDNEY: Normal location of the right kidney, which is normal in size. The right kidney measures 12.9 cm x 5.3 cm x 5.3 cm. There is a normal cortex of the right kidney. The renal cortex measures 1.1 cm. 2 cysts are seen. The largest measures 3.4 cm x 3.7 cm x 2.7 cm. Nonobstructive 9 mm calculus. There is no right hydronephrosis. The pyramids are echogenic suggestive of medullary sponge kidney. DISTAL RIGHT URETER: There is non-visualization of the distal right ureter. There is no demonstrated right ureterovesical junction calculus. There is no demonstrated right ureteral jet. LEFT KIDNEY: Normal location of the left kidney, which is normal in size. The left kidney measures 11.9 cm x 7.2 cm x 6.0 cm. There is a normal cortex of the left kidney. The renal cortex measures 1.3 cm. There is no left renal mass or cyst. There are no left renal calculi. There is no left hydronephrosis. Increased echotexture of the appearance. This is suggestive of medullary sponge kidney. DISTAL LEFT URETER: There is non-visualization of the distal left ureter. There is no demonstrated left ureterovesical junction calculus. There is no demonstrated left ureteral jet. BLADDER: The distended urinary bladder has a volume of 79.4 ml. Incidental note is made of splenomegaly. The spleen measures 17.9 cm x 6.8 cm x 6.1 cm. US/Kidney and Bladder IMPRESSION: Right renal cysts. 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 Splenomegaly. Electronically Signed: Fili Ferrer MD at 13:35 EDT Tel [phone], Service support ,
[2017-12-15 06:34] LABS: ALB/GLOB Ratio 0.3 RATIO (0.9-2.4); AST(SGOT) 26 U/L (15-37); Alanine Aminotransfer ALT/SGPT 23 U/L (13-56); Albumin, Serum 1.5 g/dL (3.2-5.0); Alkaline Phosphatase 306 U/L (45-117); Anion Gap 12 (5-15); BUN 38 mg/dL (7-18); BUN/Creat Ratio 16.8 RATIO (10-20); Calcium,Total 10.4 mg/dL (8.5-10.1); Chloride 107 mmol/L (98-107); Creatinine, Serum 2.26 mg/dL (0.55-1.02); EST Glomerular Filtration Rate 24 mL/min (>60); Est Glom Filt Rate - Afr Amer 29 mL/min (>60); Estimated Creatinine Clearance 25.71 ml/min; Globulin 4.4 g/dL (2.2-4.2); Glucose 94 mg/dL (74-106); Potassium 3.4 mmol/L (3.5-5.1); Protein, Total 5.9 g/dL (6.4-8.2); Sodium Level 135 mmol/L (136-145)
[2017-12-15 07:03] LABS: Hematocrit 22.1 % (37-47); Mean Corp Hgb Conc 31.7 g/gl (32-36); Mean Corpuscular Hgb 25.5 pg (27.0-32.0); Mean Corpuscular Volume 80.7 fL (81-99); Mean Platelet Vol. 8.4 fl (6.2-12.0); Platelet Count 316 K/mm3 (150-450); RBC Distribution Width CV 17.7 % (11.6-14.6); RBC Distribution Width SD 50.2 fl (35.1-43.9); Red Blood Count 2.74 M/mm3 (4.2-5.4); White Blood Count 8.6 K/mm3 (4.4-11.0)
[2017-12-15 07:07] LABS: Differential Indicated MANUAL DIFF; POSITIVE COUNT YES; POSITIVE DIFFERENTIAL YES; POSITIVE MORPHOLOGY YES
[2017-12-15 08:00] LABS: Total Cells Counted 100 (MANUAL DIFF)
--- NOTE | 2017-12-15 08:00 | PCM.PROGNOTE ---
Patient Problems: Active and Suspected Problems Severe anemia (Acute) Hyponatremia (Acute) Hypercalcemia (Acute) Subjective: Patient did okay overnight. Patient continues to have belching frequently. Patient subjectively unchanged compared to previous. Patient does report that she is thirsty, but has been n.p.o. since midnight secondary to an ultrasound ordered for today. - Physical Exam General: Alert, Oriented x3, Cooperative, No apparent distress, - - Obese. Speaking in full sentences. HEENT: Atraumatic, PERRLA, EOMI, Normocephalic, - - No scleral icterus or injection noted. Oral: No Gingival or Mucosal Lesions/ Ulcerations, Dry Mucosa Neck: Supple, No JVD, No Nodes, Trachea Midline Lungs: Clear to auscultation, Normal air movement, No rhonchi, No wheeze, No rales, - - Symmetric expansion. No dullness to percussion. Cardiovascular: Normal S1, Normal S2, No murmurs, No rub noted, No Gallop, Tachycardic Abdomen: Bowel Sounds Present, Soft, Non-Distended, Obese, Tender Extremities: No clubbing, No cyanosis, No edema, Capillary Refill Less than 3 Seconds Skin: No rashes, No breakdown Musculoskeletal: No Tenderness to Palpation of Joints or Extremities Lymphatic: No Cervical, Supraclavicular, or Inguinal Adenopathy Neurological: Cranial nerves II-XII grossly intact, Neuro grossly intact, Motor Exam 5/5 strength throughout Psych/Mental Status: Appropriate, Flat Affect Vital Signs Temp Pulse Resp BP Pulse Ox 38.2 C H 105 H 16 145/58 H 94 12/15/17 05:55 12/15/17 06:59 12/15/17 05:55 12/15/17 05:55 12/15/17 05:55 Oxygen Delivery Method Room Air Weight: 98.7 kg Body Mass Index (BMI) 35.1 Intake and Output for Last 24 Hours 12/13/17 12/14/17 12/15/17 23:59 23:59 23:59 Intake Total 1392 / 1392 2370 / 2370 2478 / 2478 Output Total 500 / 500 1200 / 1200 1201 / 1201 Balance 892 / 892 1170 / 1170 1277 / 1277 Laboratory Tests Past 24 Hrs 12/14/17 12/14/17 12/14/17 20:30 20:30 20:30 WBC RBC Hgb Hct MCV MCH MCHC RDW RDW Differential Plt Count MPV Neut % (Auto) Absolute Neuts (auto) Total Counted Sodium Potassium Chloride Carbon Dioxide Anion Gap BUN Creatinine Estim Creat Clear Calc Est GFR (MDRD) Af Amer Est GFR (MDRD) Non-Af BUN/Creatinine Ratio Glucose Calcium Total Bilirubin AST ALT Alkaline Phosphatase Total Protein Albumin Globulin Albumin/Globulin Ratio Urine Osmolality 314 U Random Total Protein 74.0 H Ur Random Sodium Urine Creatinine 37.90 12/14/17 12/15/17 12/15/17 20:30 05:15 05:15 WBC 8.6 RBC 2.74 L Hgb 7.0 L Hct 22.1 L MCV 80.7 L MCH 25.5 L MCHC 31.7 L RDW 17.7 H RDW Differential 50.2 H Plt Count 316 MPV 8.4 Neut % (Auto) Not Reportable Absolute Neuts (auto) Not Reportable Total Counted Pending Sodium 135 L Potassium 3.4 L Chloride 107 Carbon Dioxide 16.0 L Anion Gap 12 BUN 38 H Creatinine 2.26 H Estim Creat Clear Calc 25.71 Est GFR (MDRD) Af Amer 29 L Est GFR (MDRD) Non-Af 24 L BUN/Creatinine Ratio 16.8 Glucose 94 Calcium 10.4 H Total Bilirubin 2.00 H AST 26 ALT 23 Alkaline Phosphatase 306 H Total Protein 5.9 L Albumin 1.5 L Globulin 4.4 H Albumin/Globulin Ratio 0.3 L Urine Osmolality U Random Total Protein Ur Random Sodium 65 Urine Creatinine Medical Necessity - Tobacco Use Smoking Status: Never smoker Tobacco Use: Non-smoker Assessment/Plan All Active Problems Severe anemia (Acute) Hyponatremia (Acute) Hypercalcemia (Acute) RECOMMENDATIONS: 1. Continue aggressive fluid hydration 2. Follow electrolytes closely 3. OUTPATIENT endobronchial ultrasound 4. Will follow peripherally throughout the rest of the hospitalization. IMPRESSIONS: 1. Mediastinal lymphadenopathy Patient with significant lymphadenopathy noted throughout the thoracic, hilar and subcarinal chains. Patient would be an excellent candidate for endobronchial ultrasound for biopsy. Patient has had elevated temperatures which may indicate B type symptoms. Differential diagnosis would include: Sarcoidosis, lymphoma and acute infection. Clinical suspicion is for lymphoma. Did discuss with the patient the risks, benefits and alternatives to endobronchial ultrasound. They appear to be open to proceed with the procedure. Patient's hospitalization should focus on electrolyte normalization with outpatient endobronchial ultrasound shortly after discharge. Patient appears to be improving with IV hydration. Will follow along peripherally throughout the hospitalization and attempt to schedule bronchoscopy as an outpatient prior to discharge from the hospital. No new questions from the family today. 2. Hypovolemic hyponatremia/hypercalcemia Patient currently undergoing volume resuscitation with normal saline. Continue to monitor. 3. Anemia/rheumatoid arthritis/obesity/multiple hospitalizations/debility Complicates care, management, recovery and prognosis. Patient's protein is within normal limits, but albumin is significantly reduced at 1.8 with elevation in globulin. ID studies are currently pending. Code Visit Inpatient E&M: 47673 Subs Hosp L2
[2017-12-15 08:01] LABS: Absolute Lymphocyte Count 0.69 X10^3/ul (0.83-4.51); Lymphocyte 8 % (19-41); Monocyte 11 % (0-10); Neutrophil-Band 1 % (0-5); Neutrophil-Segmented 80 % (47-70)
--- NOTE | 2017-12-15 08:41 | US_ITS ---
STUDY: ABDOMINAL ULTRASOUND - RIGHT UPPER QUADRANT REASON FOR VISIT: Female, 57 years old. Elevated liver function tests. TECHNIQUE: Ultrasound evaluation of the right upper quadrant was performed with real-time and static blas-scale imaging. TECHNICAL QUALITY: Adequate. COMPARISON: Comparison is made with prior CT scan of the abdomen dated December 13, 2017. FINDINGS: Liver: The liver is enlarged and measures 19.6 cm. There is increased echogenicity consistent with fatty infiltration. The bile ducts are within normal limits. There is hepatic color flow. The direction of portal flow is hepatopetal. There is no demonstrated mass lesion. Gallbladder: Normal distended gallbladder. The gallbladder wall is slightly thickened and measures 3.3 mm. There is a negative sonographic Lakhani's sign. There is minimal pericholecystic fluid. There are multiple echogenic structures within the gallbladder, consistent with multiple gallstones. Common Bile Duct (C.B.D.): The common bile duct measures 4.4 mm. Pancreas: Normal size of the head, body and tail of the pancreas. There is normal echogenicity of the pancreas. There is no demonstrated pancreatic mass or cyst. US/Gallbladder IMPRESSION: Hepatomegaly and fatty attrition of the liver. Multiple gallstones. Minimal thickening of the gallbladder wall as well as minimal pericholecystic fluid. Electronically Signed: Fili Ferrer MD at 13:32 EDT Tel [phone], Service support ,
[2017-12-15] MEDS: predniSONE 5 MG Tablet 2.5 MG PO (08:48)
[2017-12-15] MEDS: amLODIPine 5 MG Tablet PO (08:48)
[2017-12-15 08:52] LABS: Magnesium 1.6 mg/dL (1.6-2.6); Phosphorus 2.7 mg/dL (2.5-4.9)
[2017-12-15 10:05] LABS: PTHIN 24.2 pg/mL (18.4-80.1)
--- NOTE | 2017-12-15 11:16 | PCM.PROGNOTE ---
<Jose Alfredo Wagner - Last Filed: 12/15/17 11:16> Patient Problems: Active and Suspected Problems Severe anemia (Acute) Hyponatremia (Acute) Hypercalcemia (Acute) Subjective: Pt resting in bed, feels poor overall. Still nauseous and vomiting. + diarrhea x3. Fever continues. No chills/rigors. Denies abdominal pain. Denies dysuria. currently no SOB/cough. - Physical Exam General: Alert, Oriented x3, Cooperative HEENT: Atraumatic, PERRLA, EOMI, Normocephalic Neck: Supple, No JVD, Negative Carotid Bruits Lungs: Clear to auscultation, Normal air movement Cardiovascular: Regular rate, No murmurs Abdomen: Bowel Sounds Present, Soft, Non Tender Extremities: No edema, Capillary Refill Less than 3 Seconds Skin: No rashes, No breakdown Musculoskeletal: No Tenderness to Palpation of Joints or Extremities Neurological: Cranial nerves II-XII grossly intact Psych/Mental Status: Depressed, Alert and oriented to time, place, person, mood and affect Vital Signs Temp Pulse Resp BP Pulse Ox 99.2 F H 108 H 20 H 135/64 H 96 12/15/17 09:13 12/15/17 09:13 12/15/17 09:13 12/15/17 09:13 12/15/17 09:13 Oxygen Delivery Method Room Air Weight: 217 lb 9.54 oz Body Mass Index (BMI) 35.1 Intake and Output for Last 24 Hours 12/13/17 12/14/17 12/15/17 23:59 23:59 23:59 Intake Total 1392 / 1392 2370 / 2370 2958 / 2958 Output Total 500 / 500 1200 / 1200 1601 / 1601 Balance 892 / 892 1170 / 1170 1357 / 1357 Laboratory Tests Past 24 Hrs 12/13/17 12/14/17 12/14/17 17:33 20:30 20:30 WBC RBC Hgb Hct MCV MCH MCHC RDW RDW Differential Plt Count MPV Neut % (Auto) Absolute Neuts (auto) Absolute Lymphs (auto) Total Counted Neutrophils % (Manual) Band Neutrophils % Lymphocytes % (Manual) Monocytes % (Manual) Diff Path Review Sodium Potassium Chloride Carbon Dioxide Anion Gap BUN Creatinine Estim Creat Clear Calc Est GFR (MDRD) Af Amer Est GFR (MDRD) Non-Af BUN/Creatinine Ratio Glucose Calcium Phosphorus Magnesium Total Bilirubin AST ALT Alkaline Phosphatase Total Protein Albumin Globulin Albumin/Globulin Ratio PTH Intact 24.2 Urine Osmolality 314 U Random Total Protein Ur Random Sodium Urine Creatinine 37.90 12/14/17 12/14/17 12/15/17 20:30 20:30 05:15 WBC 8.6 RBC 2.74 L Hgb 7.0 L Hct 22.1 L MCV 80.7 L MCH 25.5 L MCHC 31.7 L RDW 17.7 H RDW Differential 50.2 H Plt Count 316 MPV 8.4 Neut % (Auto) Not Reportable Absolute Neuts (auto) 7.0 Absolute Lymphs (auto) 0.69 L Total Counted 100 Neutrophils % (Manual) 80 H Band Neutrophils % 1 Lymphocytes % (Manual) 8 L Monocytes % (Manual) 11 H Diff Path Review May foll Sodium Potassium Chloride Carbon Dioxide Anion Gap BUN Creatinine Estim Creat Clear Calc Est GFR (MDRD) Af Amer Est GFR (MDRD) Non-Af BUN/Creatinine Ratio Glucose Calcium Phosphorus Magnesium Total Bilirubin AST ALT Alkaline Phosphatase Total Protein Albumin Globulin Albumin/Globulin Ratio PTH Intact Urine Osmolality U Random Total Protein 74.0 H Ur Random Sodium 65 Urine Creatinine 12/15/17 12/15/17 05:15 05:15 WBC RBC Hgb Hct MCV MCH MCHC RDW RDW Differential Plt Count MPV Neut % (Auto) Absolute Neuts (auto) Absolute Lymphs (auto) Total Counted Neutrophils % (Manual) Band Neutrophils % Lymphocytes % (Manual) Monocytes % (Manual) Diff Path Review Sodium 135 L Potassium 3.4 L Chloride 107 Carbon Dioxide 16.0 L Anion Gap 12 BUN 38 H Creatinine 2.26 H Estim Creat Clear Calc 25.71 Est GFR (MDRD) Af Amer 29 L Est GFR (MDRD) Non-Af 24 L BUN/Creatinine Ratio 16.8 Glucose 94 Calcium 10.4 H Phosphorus 2.7 Magnesium 1.6 Total Bilirubin 2.00 H AST 26 ALT 23 Alkaline Phosphatase 306 H Total Protein 5.9 L Albumin 1.5 L Globulin 4.4 H Albumin/Globulin Ratio 0.3 L PTH Intact Urine Osmolality U Random Total Protein Ur Random Sodium Urine Creatinine Medical Necessity - Tobacco Use Smoking Status: Never smoker Tobacco Use: Non-smoker Assessment/Plan All Active Problems Severe anemia (Acute) Hyponatremia (Acute) Hypercalcemia (Acute) 1. Anemia - s/p 1 unit prbc. microcytic. ldh neg. low iron, tibc, normal iron sat, high ferritin. Stool occult blood negative. PTH, LUCIA, Vit D, IgG,A,M,E pending. -defer further transfusion to hematology 2. Extensive Lymphadenopathy - needs bronch/bx. Pulm and Oncology following. Lymphoma vs Sarcoidosis. Possibly amenable to surgical bx if desired sooner. 3. Hypercalcemia, hyponatremia - improved. continue IV fluids 4. RISA - improved. CKD IV. Renal consulted. Renal US pending. 5. RA - chronic prednisone and leflunomide (held) 6. HTN - stable 7. Fever either 2/2 Acute UTI or lymphoma - fever continues - + UA. Start rocephin. Added on Urine culture from yesterdays sample. 8. Diarrhea - check enteric panel, check cdiff. No recent abx use 9. Elevated Bili + gallstones on CT, nausea vomiting diarrhea contines - check GB US. DVT ppx: SCDs DC planning: pending results of ongoing tests as above. This patient was seen by Jose Alfredo Wagner PA-C under the supervision of Doctor Ed. <Nicholas Ward - Last Filed: 12/15/17 16:17> - Physical Exam Vital Signs Temp Pulse Resp BP Pulse Ox 99.6 F H 110 H 28 H 149/71 H 100 12/15/17 12:15 12/15/17 15:19 12/15/17 14:34 12/15/17 12:15 12/15/17 12:15 Oxygen Delivery Method Room Air Weight: 98.7 kg Body Mass Index (BMI) 35.1 Intake and Output for Last 24 Hours 12/13/17 12/14/17 12/15/17 23:59 23:59 23:59 Intake Total 1392 / 1392 2370 / 2370 4282 / 4282 Output Total 500 / 500 1200 / 1200 1901 / 1901 Balance 892 / 892 1170 / 1170 2381 / 2381 Laboratory Tests Past 24 Hrs 12/13/17 12/13/17 12/14/17 17:33 17:33 05:40 WBC RBC Hgb Hct MCV MCH MCHC RDW RDW Differential Plt Count MPV Neut % (Auto) Absolute Neuts (auto) Absolute Lymphs (auto) Total Counted Neutrophils % (Manual) Band Neutrophils % Lymphocytes % (Manual) Monocytes % (Manual) Diff Path Review Reviewed Reviewed Sodium Potassium Chloride Carbon Dioxide Anion Gap BUN Creatinine Estim Creat Clear Calc Est GFR (MDRD) Af Amer Est GFR (MDRD) Non-Af BUN/Creatinine Ratio Glucose Calcium Phosphorus Magnesium Total Bilirubin AST ALT Alkaline Phosphatase Total Protein Albumin Globulin Albumin/Globulin Ratio PTH Intact 24.2 Urine Osmolality U Random Total Protein Ur Random Sodium Urine Creatinine 12/14/17 12/14/17 12/14/17 20:30 20:30 20:30 WBC RBC Hgb Hct MCV MCH MCHC RDW RDW Differential Plt Count MPV Neut % (Auto) Absolute Neuts (auto) Absolute Lymphs (auto) Total Counted Neutrophils % (Manual) Band Neutrophils % Lymphocytes % (Manual) Monocytes % (Manual) Diff Path Review Sodium Potassium Chloride Carbon Dioxide Anion Gap BUN Creatinine Estim Creat Clear Calc Est GFR (MDRD) Af Amer Est GFR (MDRD) Non-Af BUN/Creatinine Ratio Glucose Calcium Phosphorus Magnesium Total Bilirubin AST ALT Alkaline Phosphatase Total Protein Albumin Globulin Albumin/Globulin Ratio PTH Intact Urine Osmolality 314 U Random Total Protein 74.0 H Ur Random Sodium Urine Creatinine 37.90 12/14/17 12/15/17 12/15/17 20:30 05:15 05:15 WBC 8.6 RBC 2.74 L Hgb 7.0 L Hct 22.1 L MCV 80.7 L MCH 25.5 L MCHC 31.7 L RDW 17.7 H RDW Differential 50.2 H Plt Count 316 MPV 8.4 Neut % (Auto) Not Reportable Absolute Neuts (auto) 7.0 Absolute Lymphs (auto) 0.69 L Total Counted 100 Neutrophils % (Manual) 80 H Band Neutrophils % 1 Lymphocytes % (Manual) 8 L Monocytes % (Manual) 11 H Diff Path Review May foll Sodium 135 L Potassium 3.4 L Chloride 107 Carbon Dioxide 16.0 L Anion Gap 12 BUN 38 H Creatinine 2.26 H Estim Creat Clear Calc 25.71 Est GFR (MDRD) Af Amer 29 L Est GFR (MDRD) Non-Af 24 L BUN/Creatinine Ratio 16.8 Glucose 94 Calcium 10.4 H Phosphorus Magnesium Total Bilirubin 2.00 H AST 26 ALT 23 Alkaline Phosphatase 306 H Total Protein 5.9 L Albumin 1.5 L Globulin 4.4 H Albumin/Globulin Ratio 0.3 L PTH Intact Urine Osmolality U Random Total Protein Ur Random Sodium 65 Urine Creatinine 12/15/17 05:15 WBC RBC Hgb Hct MCV MCH MCHC RDW RDW Differential Plt Count MPV Neut % (Auto) Absolute Neuts (auto) Absolute Lymphs (auto) Total Counted Neutrophils % (Manual) Band Neutrophils % Lymphocytes % (Manual) Monocytes % (Manual) Diff Path Review Sodium Potassium Chloride Carbon Dioxide Anion Gap BUN Creatinine Estim Creat Clear Calc Est GFR (MDRD) Af Amer Est GFR (MDRD) Non-Af BUN/Creatinine Ratio Glucose Calcium Phosphorus 2.7 Magnesium 1.6 Total Bilirubin AST ALT Alkaline Phosphatase Total Protein Albumin Globulin Albumin/Globulin Ratio PTH Intact Urine Osmolality U Random Total Protein Ur Random Sodium Urine Creatinine Assessment/Plan This patient was seen in conjunction with Jose Alfredo Wagner PA-C. I have independently interviewed and examined the patient and reviewed pertinent historical, laboratory, and other data. Please refer to Jose Alfredo Wagner PA-C note for details of this patient's presentation, findings, and recommendations. I have reviewed Jose Alfredo Wagner PA-C note and concur with documented findings. In brief, it is a 57-year-old lady presented with generalized weakness nausea and vomiting. Found to have hepatosplenomegaly on admission. She was also found to be anemic with hemoglobin of 7. Subsequent CT demonstrated significantly no part in the mediastinum as well as abdomen subsequently admitted to regular nursing floor for further management Physical Examination: GENERAL: Flat affect HEENT: Clear conjunctiva, NECK; supple, normal thyroid, CHEST: Diminished to auscultation bilaterally HEART: Regular S1 S2, ABDOMEN: soft, normoactive bowel sounds, SKIN: No Rash Assessment: 1. Symptomatic anemia requiring blood transfusion 2. Extensive lymphadenopathy with high suspicion for neoplastic process 3. Hypercalcemia 4. Hyponatremia 5. Acute kidney injury 6. Rheumatoid arthritis 7. Essential hypertension 8. Failure secondary to acute cystitis 9. Cholelithiasis 10. Obesity with BMI of 35.1 Recommendations: 1. I have discussed the results of my overview and impressions with the patient 2. Options for management were reviewed Clinical Impression(s) from Imaging Studies Brain CT 12/13/17 09:29 IMPRESSION: Chronic involutional changes of the brain. No hemorrhage. Electronically Signed: Kj York MD at 10:54 EDT , Service support , Chest X-Ray 12/13/17 10:04 IMPRESSION: Hilar lymphadenopathy suggesting sarcoidosis or lymphoma. CT scan recommended for further evaluation. Electronically Signed: Kj York MD at 10:55 EDT , Service support , Chest CT 12/13/17 11:03 IMPRESSION: Too numerous to count bulky lymph nodes throughout the mediastinum subcarina region and right root of the left hilum as well as in the upper abdomen. This accompanies moderate to severe splenomegaly. This raises concern for neoplastic etiology such as lymphoma leukemia possible metastatic disease or widespread infection. Cholelithiasis. Electronically Signed: Sosa Schmid MD at 12:44 EDT Tel , Service support , Abdomen CT 12/13/17 18:36 IMPRESSION: 1. No acute findings of the abdomen or pelvis 2. Hepatomegaly and splenomegaly 3. Hyperdense appearance of the bilateral renal calyces without obstruction 4. Numerous retroperitoneal and maria ines hepatis lymph nodes. Nonspecific however, malignancy is not excluded. Consider PET/CT to further evaluate. Electronically Signed: Raghu Cabello DO at 21:46 EDT Tel , Service support , Renal Ultrasound 12/15/17 05:55 IMPRESSION: Right renal cysts. 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 Splenomegaly. Electronically Signed: Fili Ferrer MD at 13:35 EDT Tel [phone], Service support , Gallbladder Ultrasound 12/15/17 08:41 IMPRESSION: Hepatomegaly and fatty attrition of the liver. Multiple gallstones. Minimal thickening of the gallbladder wall as well as minimal pericholecystic fluid. Electronically Signed: Fili Ferrer MD at 13:32 EDT Tel [phone], Service support , Active Medications Albuterol/Ipratropium (Duoneb) 3 ml INHALATION Q4H.RT [facility] Last Admin: 12/15/17 10:37 Dose: Not Given Amlodipine Besylate (Norvasc) 5 mg PO DAILY [facility] Last Admin: 12/15/17 08:48 Dose: 5 mg Sodium Chloride () 1,000 mls @ 150 mls/hr IV .[id number] [facility] Last Admin: 12/15/17 14:39 Dose: 150 mls/hr Ceftriaxone Sodium (Rocephin) 1 gm in 50 mls @ 100 mls/hr IV Q24 [facility] Last Admin: 12/15/17 12:11 Dose: 100 mls/hr Magnesium Hydroxide (Milk Of Magnesia) 30 ml PO DAILY PRN PRN Reason: Constipation Ondansetron HCl (Zofran) 4 mg IV Q8H PRN PRN PRN Reason: NAUSEA Prednisone () 2.5 mg PO DAILYCM [facility] Last Admin: 12/15/17 08:48 Dose: 2.5 mg Sodium Chloride () 5 - 30 ml IV UD PRN PRN Reason: SALINE FLUSH Code Visit Inpatient E&M: 86857 [facility] H[facility] L3
--- NOTE | 2017-12-15 11:20 | PN_ITS ---
<Jose Alfredo Wagner - Last Filed: 12/15/17 11:16> Patient Problems: Active and Suspected Problems Severe anemia (Acute) Hyponatremia (Acute) Hypercalcemia (Acute) Subjective: Pt resting in bed, feels poor overall. Still nauseous and vomiting. + diarrhea x3. Fever continues. No chills/rigors. Denies abdominal pain. Denies dysuria. currently no SOB/cough. - Physical Exam General: Alert, Oriented x3, Cooperative HEENT: Atraumatic, PERRLA, EOMI, Normocephalic Neck: Supple, No JVD, Negative Carotid Bruits Lungs: Clear to auscultation, Normal air movement Cardiovascular: Regular rate, No murmurs Abdomen: Bowel Sounds Present, Soft, Non Tender Extremities: No edema, Capillary Refill Less than 3 Seconds Skin: No rashes, No breakdown Musculoskeletal: No Tenderness to Palpation of Joints or Extremities Neurological: Cranial nerves II-XII grossly intact Psych/Mental Status: Depressed, Alert and oriented to time, place, person, mood and affect Vital Signs Temp Pulse Resp BP Pulse Ox 99.2 F H 108 H 20 H 135/64 H 96 12/15/17 09:13 12/15/17 09:13 12/15/17 09:13 12/15/17 09:13 12/15/17 09:13 Oxygen Delivery Method Room Air Weight: 217 lb 9.54 oz Body Mass Index (BMI) 35.1 Intake and Output for Last 24 Hours 12/13/17 12/14/17 12/15/17 23:59 23:59 23:59 Intake Total 1392 / 1392 2370 / 2370 2958 / 2958 Output Total 500 / 500 1200 / 1200 1601 / 1601 Balance 892 / 892 1170 / 1170 1357 / 1357 Laboratory Tests Past 24 Hrs 12/13/17 12/14/17 12/14/17 17:33 20:30 20:30 WBC RBC Hgb Hct MCV MCH MCHC RDW RDW Differential Plt Count MPV Neut % (Auto) Absolute Neuts (auto) Absolute Lymphs (auto) Total Counted Neutrophils % (Manual) Band Neutrophils % Lymphocytes % (Manual) Monocytes % (Manual) Diff Path Review Sodium Potassium Chloride Carbon Dioxide Anion Gap BUN Creatinine Estim Creat Clear Calc Est GFR (MDRD) Af Amer Est GFR (MDRD) Non-Af BUN/Creatinine Ratio Glucose Calcium Phosphorus Magnesium Total Bilirubin AST ALT Alkaline Phosphatase Total Protein Albumin Globulin Albumin/Globulin Ratio PTH Intact 24.2 Urine Osmolality 314 U Random Total Protein Ur Random Sodium Urine Creatinine 37.90 12/14/17 12/14/17 12/15/17 20:30 20:30 05:15 WBC 8.6 RBC 2.74 L Hgb 7.0 L Hct 22.1 L MCV 80.7 L MCH 25.5 L MCHC 31.7 L RDW 17.7 H RDW Differential 50.2 H Plt Count 316 MPV 8.4 Neut % (Auto) Not Reportable Absolute Neuts (auto) 7.0 Absolute Lymphs (auto) 0.69 L Total Counted 100 Neutrophils % (Manual) 80 H Band Neutrophils % 1 Lymphocytes % (Manual) 8 L Monocytes % (Manual) 11 H Diff Path Review May foll Sodium Potassium Chloride Carbon Dioxide Anion Gap BUN Creatinine Estim Creat Clear Calc Est GFR (MDRD) Af Amer Est GFR (MDRD) Non-Af BUN/Creatinine Ratio Glucose Calcium Phosphorus Magnesium Total Bilirubin AST ALT Alkaline Phosphatase Total Protein Albumin Globulin Albumin/Globulin Ratio PTH Intact Urine Osmolality U Random Total Protein 74.0 H Ur Random Sodium 65 Urine Creatinine 12/15/17 12/15/17 05:15 05:15 WBC RBC Hgb Hct MCV MCH MCHC RDW RDW Differential Plt Count MPV Neut % (Auto) Absolute Neuts (auto) Absolute Lymphs (auto) Total Counted Neutrophils % (Manual) Band Neutrophils % Lymphocytes % (Manual) Monocytes % (Manual) Diff Path Review Sodium 135 L Potassium 3.4 L Chloride 107 Carbon Dioxide 16.0 L Anion Gap 12 BUN 38 H Creatinine 2.26 H Estim Creat Clear Calc 25.71 Est GFR (MDRD) Af Amer 29 L Est GFR (MDRD) Non-Af 24 L BUN/Creatinine Ratio 16.8 Glucose 94 Calcium 10.4 H Phosphorus 2.7 Magnesium 1.6 Total Bilirubin 2.00 H AST 26 ALT 23 Alkaline Phosphatase 306 H Total Protein 5.9 L Albumin 1.5 L Globulin 4.4 H Albumin/Globulin Ratio 0.3 L PTH Intact Urine Osmolality U Random Total Protein Ur Random Sodium Urine Creatinine Medical Necessity - Tobacco Use Smoking Status: Never smoker Tobacco Use: Non-smoker Assessment/Plan All Active Problems Severe anemia (Acute) Hyponatremia (Acute) Hypercalcemia (Acute) 1. Anemia - s/p 1 unit prbc. microcytic. ldh neg. low iron, tibc, normal iron sat, high ferritin. Stool occult blood negative. PTH, LUCIA, Vit D, IgG,A,M,E pending. -defer further transfusion to hematology 2. Extensive Lymphadenopathy - needs bronch/bx. Pulm and Oncology following. Lymphoma vs Sarcoidosis. Possibly amenable to surgical bx if desired sooner. 3. Hypercalcemia, hyponatremia - improved. continue IV fluids 4. RISA - improved. CKD IV. Renal consulted. Renal US pending. 5. RA - chronic prednisone and leflunomide (held) 6. HTN - stable 7. Fever either 2/2 Acute UTI or lymphoma - fever continues - + UA. Start rocephin. Added on Urine culture from yesterdays sample. 8. Diarrhea - check enteric panel, check cdiff. No recent abx use 9. Elevated Bili + gallstones on CT, nausea vomiting diarrhea contines - check GB US. DVT ppx: SCDs DC planning: pending results of ongoing tests as above. This patient was seen by Jose Alfredo Wagner PA-C under the supervision of Doctor Ed. <Nicholas Ward - Last Filed: 12/15/17 16:17> - Physical Exam Vital Signs Temp Pulse Resp BP Pulse Ox 99.6 F H 110 H 28 H 149/71 H 100 12/15/17 12:15 12/15/17 15:19 12/15/17 14:34 12/15/17 12:15 12/15/17 12:15 Oxygen Delivery Method Room Air Weight: 98.7 kg Body Mass Index (BMI) 35.1 Intake and Output for Last 24 Hours 12/13/17 12/14/17 12/15/17 23:59 23:59 23:59 Intake Total 1392 / 1392 2370 / 2370 4282 / 4282 Output Total 500 / 500 1200 / 1200 1901 / 1901 Balance 892 / 892 1170 / 1170 2381 / 2381 Laboratory Tests Past 24 Hrs 12/13/17 12/13/17 12/14/17 17:33 17:33 05:40 WBC RBC Hgb Hct MCV MCH MCHC RDW RDW Differential Plt Count MPV Neut % (Auto) Absolute Neuts (auto) Absolute Lymphs (auto) Total Counted Neutrophils % (Manual) Band Neutrophils % Lymphocytes % (Manual) Monocytes % (Manual) Diff Path Review Reviewed Reviewed Sodium Potassium Chloride Carbon Dioxide Anion Gap BUN Creatinine Estim Creat Clear Calc Est GFR (MDRD) Af Amer Est GFR (MDRD) Non-Af BUN/Creatinine Ratio Glucose Calcium Phosphorus Magnesium Total Bilirubin AST ALT Alkaline Phosphatase Total Protein Albumin Globulin Albumin/Globulin Ratio PTH Intact 24.2 Urine Osmolality U Random Total Protein Ur Random Sodium Urine Creatinine 12/14/17 12/14/17 12/14/17 20:30 20:30 20:30 WBC RBC Hgb Hct MCV MCH MCHC RDW RDW Differential Plt Count MPV Neut % (Auto) Absolute Neuts (auto) Absolute Lymphs (auto) Total Counted Neutrophils % (Manual) Band Neutrophils % Lymphocytes % (Manual) Monocytes % (Manual) Diff Path Review Sodium Potassium Chloride Carbon Dioxide Anion Gap BUN Creatinine Estim Creat Clear Calc Est GFR (MDRD) Af Amer Est GFR (MDRD) Non-Af BUN/Creatinine Ratio Glucose Calcium Phosphorus Magnesium Total Bilirubin AST ALT Alkaline Phosphatase Total Protein Albumin Globulin Albumin/Globulin Ratio PTH Intact Urine Osmolality 314 U Random Total Protein 74.0 H Ur Random Sodium Urine Creatinine 37.90 12/14/17 12/15/17 12/15/17 20:30 05:15 05:15 WBC 8.6 RBC 2.74 L Hgb 7.0 L Hct 22.1 L MCV 80.7 L MCH 25.5 L MCHC 31.7 L RDW 17.7 H RDW Differential 50.2 H Plt Count 316 MPV 8.4 Neut % (Auto) Not Reportable Absolute Neuts (auto) 7.0 Absolute Lymphs (auto) 0.69 L Total Counted 100 Neutrophils % (Manual) 80 H Band Neutrophils % 1 Lymphocytes % (Manual) 8 L Monocytes % (Manual) 11 H Diff Path Review May foll Sodium 135 L Potassium 3.4 L Chloride 107 Carbon Dioxide 16.0 L Anion Gap 12 BUN 38 H Creatinine 2.26 H Estim Creat Clear Calc 25.71 Est GFR (MDRD) Af Amer 29 L Est GFR (MDRD) Non-Af 24 L BUN/Creatinine Ratio 16.8 Glucose 94 Calcium 10.4 H Phosphorus Magnesium Total Bilirubin 2.00 H AST 26 ALT 23 Alkaline Phosphatase 306 H Total Protein 5.9 L Albumin 1.5 L Globulin 4.4 H Albumin/Globulin Ratio 0.3 L PTH Intact Urine Osmolality U Random Total Protein Ur Random Sodium 65 Urine Creatinine 12/15/17 05:15 WBC RBC Hgb Hct MCV MCH MCHC RDW RDW Differential Plt Count MPV Neut % (Auto) Absolute Neuts (auto) Absolute Lymphs (auto) Total Counted Neutrophils % (Manual) Band Neutrophils % Lymphocytes % (Manual) Monocytes % (Manual) Diff Path Review Sodium Potassium Chloride Carbon Dioxide Anion Gap BUN Creatinine Estim Creat Clear Calc Est GFR (MDRD) Af Amer Est GFR (MDRD) Non-Af BUN/Creatinine Ratio Glucose Calcium Phosphorus 2.7 Magnesium 1.6 Total Bilirubin AST ALT Alkaline Phosphatase Total Protein Albumin Globulin Albumin/Globulin Ratio PTH Intact Urine Osmolality U Random Total Protein Ur Random Sodium Urine Creatinine Assessment/Plan This patient was seen in conjunction with Jose Alfredo Wagnre PA-C. I have independently interviewed and examined the patient and reviewed pertinent historical, laboratory, and other data. Please refer to Jose Alfredo Wagner PA-C note for details of this patient's presentation, findings, and recommendations. I have reviewed Jose Alfredo Wagner PA-C note and concur with documented findings. In brief, it is a 57-year-old lady presented with generalized weakness nausea and vomiting. Found to have hepatosplenomegaly on admission. She was also found to be anemic with hemoglobin of 7. Subsequent CT demonstrated significantly no part in the mediastinum as well as abdomen subsequently admitted to regular nursing floor for further management Physical Examination: GENERAL: Flat affect HEENT: Clear conjunctiva, NECK; supple, normal thyroid, CHEST: Diminished to auscultation bilaterally HEART: Regular S1 S2, ABDOMEN: soft, normoactive bowel sounds, SKIN: No Rash Assessment: 1. Symptomatic anemia requiring blood transfusion 2. Extensive lymphadenopathy with high suspicion for neoplastic process 3. Hypercalcemia 4. Hyponatremia 5. Acute kidney injury 6. Rheumatoid arthritis 7. Essential hypertension 8. Failure secondary to acute cystitis 9. Cholelithiasis 10. Obesity with BMI of 35.1 Recommendations: 1. I have discussed the results of my overview and impressions with the patient 2. Options for management were reviewed Clinical Impression(s) from Imaging Studies Brain CT 12/13/17 09:29 IMPRESSION: Chronic involutional changes of the brain. No hemorrhage. Electronically Signed: Kj York MD at 10:54 EDT , Service support , Chest X-Ray 12/13/17 10:04 IMPRESSION: Hilar lymphadenopathy suggesting sarcoidosis or lymphoma. CT scan recommended for further evaluation. Electronically Signed: Kj York MD at 10:55 EDT , Service support , Chest CT 12/13/17 11:03 IMPRESSION: Too numerous to count bulky lymph nodes throughout the mediastinum subcarina region and right root of the left hilum as well as in the upper abdomen. This accompanies moderate to severe splenomegaly. This raises concern for neoplastic etiology such as lymphoma leukemia possible metastatic disease or widespread infection. Cholelithiasis. Electronically Signed: Sosa Schmid MD at 12:44 EDT Tel , Service support , Abdomen CT 12/13/17 18:36 IMPRESSION: 1. No acute findings of the abdomen or pelvis 2. Hepatomegaly and splenomegaly 3. Hyperdense appearance of the bilateral renal calyces without obstruction 4. Numerous retroperitoneal and maria ines hepatis lymph nodes. Nonspecific however, malignancy is not excluded. Consider PET/CT to further evaluate. Electronically Signed: Raghu Cabello DO at 21:46 EDT Tel , Service support , Renal Ultrasound 12/15/17 05:55 IMPRESSION: Right renal cysts. 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 Splenomegaly. Electronically Signed: Fili Ferrer MD at 13:35 EDT Tel [phone], Service support , Gallbladder Ultrasound 12/15/17 08:41 IMPRESSION: Hepatomegaly and fatty attrition of the liver. Multiple gallstones. Minimal thickening of the gallbladder wall as well as minimal pericholecystic fluid. Electronically Signed: Fili Ferrer MD at 13:32 EDT Tel [phone], Service support , Active Medications Albuterol/Ipratropium (Duoneb) 3 ml INHALATION Q4H.RT [facility] Last Admin: 12/15/17 10:37 Dose: Not Given Amlodipine Besylate (Norvasc) 5 mg PO DAILY [facility] Last Admin: 12/15/17 08:48 Dose: 5 mg Sodium Chloride () 1,000 mls @ 150 mls/hr IV .Q6H40M [facility] Last Admin: 12/15/17 14:39 Dose: 150 mls/hr Ceftriaxone Sodium (Rocephin) 1 gm in 50 mls @ 100 mls/hr IV Q24 [facility] Last Admin: 12/15/17 12:11 Dose: 100 mls/hr Magnesium Hydroxide (Milk Of Magnesia) 30 ml PO DAILY PRN PRN Reason: Constipation Ondansetron HCl (Zofran) 4 mg IV Q8H PRN PRN PRN Reason: NAUSEA Prednisone () 2.5 mg PO DAILYCM [facility] Last Admin: 12/15/17 08:48 Dose: 2.5 mg Sodium Chloride () 5 - 30 ml IV UD PRN PRN Reason: SALINE FLUSH Code Visit Inpatient E&M: [id number] [facility] Hosp L3
[2017-12-15] MEDS: Ceftriaxone 1 GM/50 ML BAG IV (12:11)
[2017-12-15 12:43] LABS: Pathologist Review Reviewed
[2017-12-15 12:44] LABS: Pathologist Review Reviewed
[2017-12-15 12:48] LABS: Pathologist Review Reviewed
--- NOTE | 2017-12-15 12:49 | PCM.PN.REN ---
Patient Problems: Active and Suspected Problems Severe anemia (Acute) Hyponatremia (Acute) Hypercalcemia (Acute) Subjective: no new complaints spiking fevers - Physical Exam General: Alert, Oriented x3, Cooperative HEENT: Atraumatic, PERRLA, EOMI, Normocephalic Neck: Supple, No JVD, Negative Carotid Bruits Lungs: Clear to auscultation, Normal air movement Cardiovascular: Regular rate, No murmurs Abdomen: Bowel Sounds Present, Soft, Non Tender Extremities: No edema, Capillary Refill Less than 3 Seconds Skin: No rashes, No breakdown Musculoskeletal: No Tenderness to Palpation of Joints or Extremities Neurological: Cranial nerves II-XII grossly intact Psych/Mental Status: Normal Affect, Appropriate Vital Signs Temp Pulse Resp BP Pulse Ox 99.6 F H 117 H 24 H 149/71 H 100 12/15/17 12:15 12/15/17 12:15 12/15/17 12:15 12/15/17 12:15 12/15/17 12:15 Oxygen Delivery Method Room Air Weight: 98.7 kg Body Mass Index (BMI) 35.1 Intake and Output for Last 24 Hours 12/13/17 12/14/17 12/15/17 23:59 23:59 23:59 Intake Total 1392 / 1392 2370 / 2370 4282 / 4282 Output Total 500 / 500 1200 / 1200 1601 / 1601 Balance 892 / 892 1170 / 1170 2681 / 2681 Laboratory Tests Past 24 Hrs 12/13/17 12/13/17 12/14/17 17:33 17:33 05:40 WBC RBC Hgb Hct MCV MCH MCHC RDW RDW Differential Plt Count MPV Neut % (Auto) Absolute Neuts (auto) Absolute Lymphs (auto) Total Counted Neutrophils % (Manual) Band Neutrophils % Lymphocytes % (Manual) Monocytes % (Manual) Diff Path Review Reviewed Reviewed Sodium Potassium Chloride Carbon Dioxide Anion Gap BUN Creatinine Estim Creat Clear Calc Est GFR (MDRD) Af Amer Est GFR (MDRD) Non-Af BUN/Creatinine Ratio Glucose Calcium Phosphorus Magnesium Total Bilirubin AST ALT Alkaline Phosphatase Total Protein Albumin Globulin Albumin/Globulin Ratio PTH Intact 24.2 Urine Osmolality U Random Total Protein Ur Random Sodium Urine Creatinine 12/14/17 12/14/17 12/14/17 20:30 20:30 20:30 WBC RBC Hgb Hct MCV MCH MCHC RDW RDW Differential Plt Count MPV Neut % (Auto) Absolute Neuts (auto) Absolute Lymphs (auto) Total Counted Neutrophils % (Manual) Band Neutrophils % Lymphocytes % (Manual) Monocytes % (Manual) Diff Path Review Sodium Potassium Chloride Carbon Dioxide Anion Gap BUN Creatinine Estim Creat Clear Calc Est GFR (MDRD) Af Amer Est GFR (MDRD) Non-Af BUN/Creatinine Ratio Glucose Calcium Phosphorus Magnesium Total Bilirubin AST ALT Alkaline Phosphatase Total Protein Albumin Globulin Albumin/Globulin Ratio PTH Intact Urine Osmolality 314 U Random Total Protein 74.0 H Ur Random Sodium Urine Creatinine 37.90 12/14/17 12/15/17 12/15/17 20:30 05:15 05:15 WBC 8.6 RBC 2.74 L Hgb 7.0 L Hct 22.1 L MCV 80.7 L MCH 25.5 L MCHC 31.7 L RDW 17.7 H RDW Differential 50.2 H Plt Count 316 MPV 8.4 Neut % (Auto) Not Reportable Absolute Neuts (auto) 7.0 Absolute Lymphs (auto) 0.69 L Total Counted 100 Neutrophils % (Manual) 80 H Band Neutrophils % 1 Lymphocytes % (Manual) 8 L Monocytes % (Manual) 11 H Diff Path Review May foll Sodium 135 L Potassium 3.4 L Chloride 107 Carbon Dioxide 16.0 L Anion Gap 12 BUN 38 H Creatinine 2.26 H Estim Creat Clear Calc 25.71 Est GFR (MDRD) Af Amer 29 L Est GFR (MDRD) Non-Af 24 L BUN/Creatinine Ratio 16.8 Glucose 94 Calcium 10.4 H Phosphorus Magnesium Total Bilirubin 2.00 H AST 26 ALT 23 Alkaline Phosphatase 306 H Total Protein 5.9 L Albumin 1.5 L Globulin 4.4 H Albumin/Globulin Ratio 0.3 L PTH Intact Urine Osmolality U Random Total Protein Ur Random Sodium 65 Urine Creatinine 12/15/17 05:15 WBC RBC Hgb Hct MCV MCH MCHC RDW RDW Differential Plt Count MPV Neut % (Auto) Absolute Neuts (auto) Absolute Lymphs (auto) Total Counted Neutrophils % (Manual) Band Neutrophils % Lymphocytes % (Manual) Monocytes % (Manual) Diff Path Review Sodium Potassium Chloride Carbon Dioxide Anion Gap BUN Creatinine Estim Creat Clear Calc Est GFR (MDRD) Af Amer Est GFR (MDRD) Non-Af BUN/Creatinine Ratio Glucose Calcium Phosphorus 2.7 Magnesium 1.6 Total Bilirubin AST ALT Alkaline Phosphatase Total Protein Albumin Globulin Albumin/Globulin Ratio PTH Intact Urine Osmolality U Random Total Protein Ur Random Sodium Urine Creatinine Medical Necessity - Tobacco Use Smoking Status: Never smoker Tobacco Use: Non-smoker Assessment/Plan All Active Problems Severe anemia (Acute) Hyponatremia (Acute) Hypercalcemia (Acute) 1. Acute kidney injury on reported chronic kidney disease. Unclear what baseline renal function is. RISA is likely due to prerenal azotemia since renal function is improving with IVF. Hypercalcemia can lead to polyuria and volume depletion as well as direct toxic effect on the kidney. ATN is also possible though treatment remains the same at this time (volume repletion). Agree with IVF and follow renal function. Low suspicion for other causes of RISA at this time-UA did not show significant hematuria or proteinuria, so GN/vasculitis is less likely. renal USG done read pending 2. Hypercalcemia. Work up is underway. PTH is low appropriately. Suspect hypercalcemia could be related to granulomatous process such as lymphoma or sarcoidosis. Agree with IVF-calcium is trending down. 3. Hyponatremia. Resolving with IVF, so suspect pt has hypovolemic hypoosmolar hyponatremia from volume depletion. Continue IVF. better today
[2017-12-15] MEDS: 0.9% Normal Saline 1,000 ML 150 ML IV ×2 (14:39→21:30)
--- NOTE | 2017-12-15 15:59 | RAD_ITS ---
STUDY: X-RAY BONE SURVEY COMPLETE REASON FOR EXAM: Female, 57 years old. METASTATIC DISEASE, POSSIBLE MULTIPLE MYELOMA TECHNIQUE: Single AP portable view of the chest. One view of the pelvis was obtained. 2 views of the cervical spine were obtained. 2 views of the thoracic spine were obtained. 2 views of the lumbar spine were obtained. 2 views of the femur. 2 views of the humerus. : 2 views of the skull were obtained. COMPARISON: None. FINDINGS: CHEST: The lungs are clear and expanded. There is no demonstrated pleural abnormality. There is mild cardiac enlargement. Normal mediastinum and uriel. Normal visualized pulmonary arteries. Normal visualized aortic arch and descending thoracic aorta. There are diffuse degenerative changes of the visualized thoracic spine. There is degenerative osteoarthritis of the bilateral shoulders. There is no demonstrated abnormality of the visualized soft tissue structures of the upper abdomen. PELVIS: There is a non-specific bowel gas pattern. Normal visualized soft tissue structures. Normal bilateral iliac wings, sacroiliac joints and visualized sacrum. Normal visualized bilateral superior and inferior pubic rami. Normal pubic symphysis. Normal ischial tuberosities. Normal visualized right femoral head. Normal right acetabulum. Normal right hip joint. Normal visualized left femoral head. Normal left acetabulum. Normal left hip joint. CERVICAL SPINE: Normal anterior atlantoaxial articulation. Normal odontoid process. Normal cervical lordosis. There is multi-level endplate spondylosis. There is multi-level degenerative disc disease with multilevel disc space narrowing. Normal visualized intervertebral neuroforamina. The soft tissue structures are unremarkable. THORACIC SPINE: Normal kyphosis of the thoracic spine. There is no substantial scoliosis. There is multilevel endplate spondylosis of the thoracic vertebrae. There is multilevel disc space narrowing of the thoracic spine. The soft tissue structures are unremarkable. LUMBAR SPINE: Normal lumbar lordosis. There is no substantial scoliosis. There is a normal alignment of the vertebrae. There is multilevel endplate spondylosis of the lumbar vertebrae. There is multi-level degenerative disc disease with multi-level disc space narrowing. The soft tissue structures are unremarkable. RIGHT FEMUR: Normal visualized femur. Normal visualized soft tissue structure. There are atherosclerotic vascular calcifications. LEFT FEMUR: Normal visualized femur. Normal visualized soft tissue structure. There are atherosclerotic vascular calcifications. RIGHT HUMERUS :Normal visualized humerus. There is no demonstrated fracture or osseous destructive process. There is no demonstrated soft tissue abnormality. LEFT HUMERUS:Normal visualized humerus. There is no demonstrated fracture or osseous destructive process. There is no demonstrated soft tissue abnormality. SKULL: There is no demonstrated soft tissue swelling. Normal osseous calvarium. Normal visualized facial bones. Normal visualized paranasal sinuses. RAD/Bone Survey Comp(Axial&Append) IMPRESSION: Degenerative findings noted in the spine. There are no lytic or sclerotic lesions in the bones. Electronically Signed: Jeffy Latham MD at 18:22 EDT , Service support ,
[2017-12-15] MEDS: Acetaminophen 325 MG Tablet 650 MG PO (17:48)
[2017-12-15] MEDS: Magnesium Oxide 400 MG Tablet PO (17:49)
[2017-12-16] VITALS (24 sets, daily range): BP systolic 107–137; BP diastolic 48–74; PULSE 94–120; RESP 16–40; TEMP 36.6–38.2; O2SAT 2–99
[2017-12-16 06:22] LABS: ALB/GLOB Ratio 0.3 RATIO (0.9-2.4); AST(SGOT) 33 U/L (15-37); Alanine Aminotransfer ALT/SGPT 20 U/L (13-56); Albumin, Serum 1.3 g/dL (3.2-5.0); Alkaline Phosphatase 267 U/L (45-117); Anion Gap 12 (5-15); BUN 32 mg/dL (7-18); BUN/Creat Ratio 15.8 RATIO (10-20); Calcium,Total 10.3 mg/dL (8.5-10.1); Chloride 104 mmol/L (98-107); Creatinine, Serum 2.02 mg/dL (0.55-1.02); EST Glomerular Filtration Rate 27 mL/min (>60); Est Glom Filt Rate - Afr Amer 33 mL/min (>60); Estimated Creatinine Clearance 28.77 ml/min; Globulin 4.3 g/dL (2.2-4.2); Glucose 91 mg/dL (74-106); Potassium 3.4 mmol/L (3.5-5.1); Protein, Total 5.6 g/dL (6.4-8.2); Sodium Level 135 mmol/L (136-145)
[2017-12-16 07:07] LABS: Absolute Lymphocyte Count 0.34 X10^3/ul (0.83-4.51); Absolute Neutrophil Count 7.7 X10^3/uL (2.0-7.7); Basophil# 0.01 X10^3/uL; Basophil% 0.1 % (0-1); Eosinophil# 0.07 X10^3/uL; Eosinophils% 0.8 % (0-5); Hematocrit 24.2 % (37-47); Hemoglobin 7.8 g/dl (12.0-15.0); Lymphocyte # 0.34 X10^3/ul (4.0); Lymphocyte % 3.7 % (19-41); Mean Corp Hgb Conc 32.2 g/gl (32-36); Mean Corpuscular Hgb 26.1 pg (27.0-32.0); Mean Corpuscular Volume 80.9 fL (81-99); Mean Platelet Vol. 8.4 fl (6.2-12.0); Monocyte# 0.76 X10^3/uL; Monocyte% 8.3 % (0-10); Neutrophil # 7.71 X10^3/uL (2.7-7.7); Neutrophil % 84.6 % (47-70); Platelet Count 284 K/mm3 (150-450); RBC Distribution Width CV 17.3 % (11.6-14.6); RBC Distribution Width SD 49.6 fl (35.1-43.9); Red Blood Count 2.99 M/mm3 (4.2-5.4); White Blood Count 9.1 K/mm3 (4.4-11.0)
[2017-12-16 07:09] LABS: Differential Indicated SCAN CRITERIA MET; POSITIVE COUNT YES; POSITIVE DIFFERENTIAL YES; POSITIVE MORPHOLOGY YES
[2017-12-16] MEDS: 0.9% Normal Saline 1,000 ML 150 ML IV (07:27)
--- NOTE | 2017-12-16 08:35 | RAD_ITS ---
STUDY: X-RAY CHEST REASON FOR EXAM: Female, 57 years old. Shortness of breath. Cough and weakness. TECHNIQUE: AP and lateral views of the chest. COMPARISON: Comparison is made with prior examination dated December 13, 2017. FINDINGS: EKG electrodes are seen. There now is evidence of vascular congestion and mild degree of CHF. Increased markings with areas of confluence is seen in the left lower lobe with blunting of left costophrenic angle. This may represent left basilar atelectasis and/or early infiltrate. Normal size heart. Lobular contour of the hilar regions. Normal visualized pulmonary arteries. There is atherosclerotic tortuosity of the aortic arch and descending thoracic aorta. There are diffuse degenerative changes of the visualized thoracic spine. Normal visualized ribs, clavicles, and shoulders. There is no demonstrated abnormality of the visualized soft tissue structures of the upper abdomen. RAD/Chest PA and Lateral IMPRESSION: Left basilar atelectasis and/or infiltrate with blunting of the left costophrenic angle superimposed on a mild degree of vascular congestion and CHF. Prominence of the hilar regions bilaterally. Electronically Signed: Fili Ferrer MD at 12:46 EDT Tel [phone], Service support ,
[2017-12-16] MEDS: predniSONE 5 MG Tablet 2.5 MG PO (09:24)
[2017-12-16] MEDS: amLODIPine 5 MG Tablet PO (09:25)
[2017-12-16] MEDS: 0.9% NaCl Peripheral Flush Adult/Peds IV ×2 (09:25→17:50)
[2017-12-16] MEDS: Magnesium Oxide 400 MG Tablet PO (09:25)
[2017-12-16] MEDS: Ceftriaxone 1 GM/50 ML BAG IV (09:25)
[2017-12-16] MEDS: Furosemide 40 MG/4 ML Vial IV ×2 (09:25→17:49)
[2017-12-16 09:52] LABS: BNP,B-Type NATRIURETIC PEPTIDE 113.8 pg/mL (0-100)
--- NOTE | 2017-12-16 12:31 | PCM.PN.REN ---
Patient Problems: Active and Suspected Problems Severe anemia (Acute) Hyponatremia (Acute) Hypercalcemia (Acute) Subjective: dyspnea overnight - Physical Exam General: Alert, Oriented x3, Cooperative HEENT: Atraumatic, PERRLA, EOMI, Normocephalic Neck: Supple, No JVD, Negative Carotid Bruits Lungs: Clear to auscultation, Normal air movement Cardiovascular: Regular rate, No murmurs Abdomen: Bowel Sounds Present, Soft, Non Tender Extremities: No edema, Capillary Refill Less than 3 Seconds Skin: No rashes, No breakdown Musculoskeletal: No Tenderness to Palpation of Joints or Extremities Neurological: Cranial nerves II-XII grossly intact Psych/Mental Status: Normal Affect, Appropriate Vital Signs Temp Pulse Resp BP Pulse Ox 98.1 F 106 H 36 H 117/62 98 12/16/17 11:36 12/16/17 11:36 12/16/17 11:36 12/16/17 11:36 12/16/17 11:46 Oxygen Flow Rate (L/min) 2 Oxygen Delivery Method Nasal Cannula Weight: 98.7 kg Body Mass Index (BMI) 35.1 Intake and Output for Last 24 Hours 12/14/17 12/15/17 12/16/17 23:59 23:59 23:59 Intake Total 2370 / 2370 6301 / 6301 1890 / 1890 Output Total 1200 / 1200 1903 / 1903 Balance 1170 / 1170 4398 / 4398 1890 / 1890 Microbiology Past 72 Hours 12/13/17 11:23 Stool Occult Blood (ADRIANO) - Final Stool Laboratory Tests Past 24 Hrs 12/13/17 12/13/17 12/13/17 09:46 11:50 11:50 WBC RBC Hgb Hct MCV MCH MCHC RDW RDW Differential Plt Count MPV Immature Gran % (Auto) Neut % (Auto) Lymph % (Auto) [place] % (Auto) Eos % (Auto) Baso % (Auto) Absolute Neuts (auto) Absolute Lymphs (auto) Total Counted Differential Comment Diff Path Review Reviewed Sodium Potassium Chloride Carbon Dioxide Anion Gap BUN Creatinine Estim Creat Clear Calc Est GFR (MDRD) Af Amer Est GFR (MDRD) Non-Af BUN/Creatinine Ratio Glucose Calcium Total Bilirubin AST ALT Alkaline Phosphatase B-Natriuretic Peptide Total Protein Albumin Globulin Albumin/Globulin Ratio Crossmatch See Detail See Detail 12/13/17 12/14/1718 17:33 05:40 05:10 WBC RBC Hgb Hct MCV MCH MCHC RDW RDW Differential Plt Count MPV Immature Gran % (Auto) Neut % (Auto) Lymph % (Auto) [place] % (Auto) Eos % (Auto) Baso % (Auto) Absolute Neuts (auto) Absolute Lymphs (auto) Total Counted Differential Comment Diff Path Review Reviewed Reviewed Sodium 135 L Potassium 3.4 L Chloride 104 Carbon Dioxide 19.0 L Anion Gap 12 BUN 32 H Creatinine 2.02 H Estim Creat Clear Calc 28.77 Est GFR (MDRD) Af Amer 33 L Est GFR (MDRD) Non-Af 27 L BUN/Creatinine Ratio 15.8 Glucose 91 Calcium 10.3 H Total Bilirubin 2.50 H AST 33 ALT 20 Alkaline Phosphatase 267 H B-Natriuretic Peptide Total Protein 5.6 L Albumin 1.3 L Globulin 4.3 H Albumin/Globulin Ratio 0.3 L Crossmatch 12/16/17 12/16/17 05:10 05:10 WBC 9.1 RBC 2.99 L Hgb 7.8 L Hct 24.2 L MCV 80.9 L MCH 26.1 L MCHC 32.2 RDW 17.3 H RDW Differential 49.6 H Plt Count 284 MPV 8.4 Immature Gran % (Auto) 2.500 H Neut % (Auto) 84.6 H Lymph % (Auto) 3.7 L [place] % (Auto) 8.3 Eos % (Auto) 0.8 Baso % (Auto) 0.1 Absolute Neuts (auto) 7.7 Absolute Lymphs (auto) 0.34 L Total Counted Not Reportable Differential Comment COMMENT Diff Path Review May foll Sodium Potassium Chloride Carbon Dioxide Anion Gap BUN Creatinine Estim Creat Clear Calc Est GFR (MDRD) Af Amer Est GFR (MDRD) Non-Af BUN/Creatinine Ratio Glucose Calcium Total Bilirubin AST ALT Alkaline Phosphatase B-Natriuretic Peptide 113.8 H Total Protein Albumin Globulin Albumin/Globulin Ratio Crossmatch Medical Necessity - Tobacco Use Smoking Status: Never smoker Tobacco Use: Non-smoker Assessment/Plan All Active Problems Severe anemia (Acute) Hyponatremia (Acute) Hypercalcemia (Acute) 1. Acute kidney injury on reported chronic kidney disease. Unclear what baseline renal function is. RISA is likely due to prerenal azotemia since renal function is improving. Hypercalcemia can lead to polyuria and volume depletion as well as direct toxic effect on the kidney. ATN is also possible though treatment remains the same at this time (volume repletion). renal USG reviewed. 2. Hypercalcemia. Work up is underway. PTH is low appropriately. Suspect hypercalcemia could be related to granulomatous process such as lymphoma or sarcoidosis. developed dyspnea, suspected fluid overload.fluids on hold now. will give one time dose of pamidronate. since creatinine is improving, should not have issue with bisphosphonate dosing. d/w Dr Ward and zuhair estrada so far work up showed extensive lymphadenopathy, hepatosplenomegaly, anemia, hypercalcemia, RISA which is improving. significantly elevated protein gap. skeletal survey negative. ? lymphoma likely. plan is to do outpatient EBUS by pulmonary service bisphosphonate should cover hypercalcemia for sometime. hopefully she will get diagnosis by then.
[2017-12-16 14:15] LABS: Pathologist Review Reviewed
[2017-12-16 14:15] LABS: Pathologist Review Reviewed
--- NOTE | 2017-12-16 14:24 | PCM.PROGNOTE ---
<Jose Alfredo Wagner - Last Filed: 12/16/17 14:24> Patient Problems: Active and Suspected Problems Severe anemia (Acute) Hyponatremia (Acute) Hypercalcemia (Acute) Subjective: No improvement. Tachypneic. No SOB or cough. No fever or chills. Not interacting much. She defers to her for answers. - Physical Exam General: Alert, Oriented x3, Cooperative HEENT: Atraumatic, PERRLA, EOMI, Normocephalic Neck: Supple, No JVD, Negative Carotid Bruits Lungs: Clear to auscultation, Normal air movement Cardiovascular: Regular rate, No murmurs Abdomen: Bowel Sounds Present, Soft, Non Tender Extremities: No edema, Capillary Refill Less than 3 Seconds Skin: No rashes, No breakdown, - - nodules subcutaneous distal legs and arms Musculoskeletal: No Tenderness to Palpation of Joints or Extremities Neurological: Cranial nerves II-XII grossly intact Psych/Mental Status: Normal Affect, Appropriate, Alert and oriented to time, place, person, mood and affect Vital Signs Temp Pulse Resp BP Pulse Ox 99.2 F H 112 H 34 H 135/60 H 97 12/16/17 13:17 12/16/17 13:25 12/16/17 13:17 12/16/17 13:17 12/16/17 13:17 Oxygen Flow Rate (L/min) 2 Oxygen Delivery Method Nasal Cannula Weight: 217 lb 9.54 oz Body Mass Index (BMI) 35.1 Intake and Output for Last 24 Hours 12/14/17 12/15/17 12/16/17 23:59 23:59 23:59 Intake Total 2370 / 2370 6301 / 6301 2700 / 2700 Output Total 1200 / 1200 1903 / 1903 Balance 1170 / 1170 4398 / 4398 2700 / 2700 Microbiology Past 72 Hours 12/13/17 11:23 Stool Occult Blood (ADRIANO) - Final Stool Laboratory Tests Past 24 Hrs 12/13/17 12/13/17 12/15/17 11:50 11:50 05:15 WBC RBC Hgb Hct MCV MCH MCHC RDW RDW Differential Plt Count MPV Immature Gran % (Auto) Neut % (Auto) Lymph % (Auto) [place] % (Auto) Eos % (Auto) Baso % (Auto) Absolute Neuts (auto) Absolute Lymphs (auto) Total Counted Differential Comment Diff Path Review Reviewed Sodium Potassium Chloride Carbon Dioxide Anion Gap BUN Creatinine Estim Creat Clear Calc Est GFR (MDRD) Af Amer Est GFR (MDRD) Non-Af BUN/Creatinine Ratio Glucose Calcium Total Bilirubin AST ALT Alkaline Phosphatase B-Natriuretic Peptide Total Protein Albumin Globulin Albumin/Globulin Ratio Crossmatch See Detail See Detail 12/16/17 12/16/17 12/16/17 05:10 05:10 05:10 WBC 9.1 RBC 2.99 L Hgb 7.8 L Hct 24.2 L MCV 80.9 L MCH 26.1 L MCHC 32.2 RDW 17.3 H RDW Differential 49.6 H Plt Count 284 MPV 8.4 Immature Gran % (Auto) 2.500 H Neut % (Auto) 84.6 H Lymph % (Auto) 3.7 L [place] % (Auto) 8.3 Eos % (Auto) 0.8 Baso % (Auto) 0.1 Absolute Neuts (auto) 7.7 Absolute Lymphs (auto) 0.34 L Total Counted Not Reportable Differential Comment COMMENT Diff Path Review Reviewed Sodium 135 L Potassium 3.4 L Chloride 104 Carbon Dioxide 19.0 L Anion Gap 12 BUN 32 H Creatinine 2.02 H Estim Creat Clear Calc 28.77 Est GFR (MDRD) Af Amer 33 L Est GFR (MDRD) Non-Af 27 L BUN/Creatinine Ratio 15.8 Glucose 91 Calcium 10.3 H Total Bilirubin 2.50 H AST 33 ALT 20 Alkaline Phosphatase 267 H B-Natriuretic Peptide 113.8 H Total Protein 5.6 L Albumin 1.3 L Globulin 4.3 H Albumin/Globulin Ratio 0.3 L Crossmatch Medical Necessity - Tobacco Use Smoking Status: Never smoker Tobacco Use: Non-smoker Assessment/Plan All Active Problems Severe anemia (Acute) Hyponatremia (Acute) Hypercalcemia (Acute) 1. Anemia - s/p 2 unit prbc. microcytic. ldh neg. low iron, tibc, normal iron sat, high ferritin. Stool occult blood negative. PTH, LUCIA, Vit D, IgG,A,M,E pending. -defer further transfusion to hematology 2. Extensive Lymphadenopathy - needs bronch/bx. Pulm and Oncology following. Lymphoma vs Sarcoidosis. Possibly amenable to surgical bx if desired sooner. -bone study negative. 3. Acute CHF 2/2 IVF administration - rales, cxr + for chf, tachypnea, elevated bnp. echo pending. IV lasix. 4. Hypercalcemia - not improved, dc fluids - start x1 pamidronate. 5. RISA - improved. CKD IV. Renal consulted. Renal US pending. 6. RA - chronic prednisone and leflunomide (held) 7. HTN - stable 8. Fever either 2/2 Acute UTI or lymphoma - fever continues - + UA. rocephin. Added on Urine culture from yesterdays sample. 9. Diarrhea - check enteric panel, check cdiff. No recent abx use 10. Elevated Bili + gallstones on CT, nausea vomiting diarrhea contines - gb US with stones, mild thickening. no abdominal tenderness or pain . DVT ppx: SCDs DC planning: pt overall not improved. Recommended transfer to tertiary center, family is discussing [facility] vs [facility] vs [facility]. This patient was seen by Jose Alfredo Wagner PA-C under the supervision of Doctor Ed. <Nicholas Ward - Last Filed: 12/16/17 16:09> - Physical Exam Vital Signs Temp Pulse Resp BP Pulse Ox 98.9 F 109 H 32 H 115/67 96 12/16/17 15:58 12/16/17 15:58 12/16/17 15:58 12/16/17 15:58 12/16/17 15:58 Oxygen Flow Rate (L/min) 2 Oxygen Delivery Method Nasal Cannula Weight: 98.7 kg Body Mass Index (BMI) 35.1 Intake and Output for Last 24 Hours 12/14/17 12/15/17 12/16/17 23:59 23:59 23:59 Intake Total 2370 / 2370 6301 / 6301 2700 / 2700 Output Total 1200 / 1200 1903 / 1903 Balance 1170 / 1170 4398 / 4398 2700 / 2700 Laboratory Tests Past 24 Hrs 12/13/17 12/13/17 12/15/17 11:50 11:50 05:15 WBC RBC Hgb Hct MCV MCH MCHC RDW RDW Differential Plt Count MPV Immature Gran % (Auto) Neut % (Auto) Lymph % (Auto) [place] % (Auto) Eos % (Auto) Baso % (Auto) Absolute Neuts (auto) Absolute Lymphs (auto) Total Counted Differential Comment Diff Path Review Reviewed Sodium Potassium Chloride Carbon Dioxide Anion Gap BUN Creatinine Estim Creat Clear Calc Est GFR (MDRD) Af Amer Est GFR (MDRD) Non-Af BUN/Creatinine Ratio Glucose Calcium Total Bilirubin AST ALT Alkaline Phosphatase B-Natriuretic Peptide Total Protein Albumin Globulin Albumin/Globulin Ratio Crossmatch See Detail See Detail 12/16/17 12/16/17 12/16/17 05:10 05:10 05:10 WBC 9.1 RBC 2.99 L Hgb 7.8 L Hct 24.2 L MCV 80.9 L MCH 26.1 L MCHC 32.2 RDW 17.3 H RDW Differential 49.6 H Plt Count 284 MPV 8.4 Immature Gran % (Auto) 2.500 H Neut % (Auto) 84.6 H Lymph % (Auto) 3.7 L [place] % (Auto) 8.3 Eos % (Auto) 0.8 Baso % (Auto) 0.1 Absolute Neuts (auto) 7.7 Absolute Lymphs (auto) 0.34 L Total Counted Not Reportable Differential Comment COMMENT Diff Path Review Reviewed Sodium 135 L Potassium 3.4 L Chloride 104 Carbon Dioxide 19.0 L Anion Gap 12 BUN 32 H Creatinine 2.02 H Estim Creat Clear Calc 28.77 Est GFR (MDRD) Af Amer 33 L Est GFR (MDRD) Non-Af 27 L BUN/Creatinine Ratio 15.8 Glucose 91 Calcium 10.3 H Total Bilirubin 2.50 H AST 33 ALT 20 Alkaline Phosphatase 267 H B-Natriuretic Peptide 113.8 H Total Protein 5.6 L Albumin 1.3 L Globulin 4.3 H Albumin/Globulin Ratio 0.3 L Crossmatch Assessment/Plan This patient was seen in conjunction with Jose Alfredo Wagner PA-C. I have independently interviewed and examined the patient and reviewed pertinent historical, laboratory, and other data. Please refer to Jose Alfredo Wagner PA-C note for details of this patient's presentation, findings, and recommendations. I have reviewed Jose Alfredo Wagner PA-C note and concur with documented findings. In brief, it is a 57-year-old lady presented with generalized weakness nausea and vomiting. Found to have hepatosplenomegaly on admission. She was also found to be anemic with hemoglobin of 7. Subsequent CT demonstrated significantly no part in the mediastinum as well as abdomen subsequently admitted to regular nursing floor for further management 12/16/2017. Patient's hypercalcemia persists. Still appears significantly ill looking more dyspneic than usual. Discussions were initiated with patient's regarding possible transfer to a tertiary care facility Physical Examination: GENERAL: Flat affect HEENT: Clear conjunctiva, NECK; supple, normal thyroid, CHEST: Diminished to auscultation bilaterally HEART: Regular S1 S2, ABDOMEN: soft, normoactive bowel sounds, SKIN: No Rash Assessment: 1. Symptomatic anemia requiring blood transfusion 2. Extensive lymphadenopathy with high suspicion for neoplastic process 3. Hypercalcemia 4. Hyponatremia 5. Acute kidney injury 6. Rheumatoid arthritis 7. Essential hypertension 8. Failure secondary to acute cystitis 9. Cholelithiasis 10. Obesity with BMI of 35.1 Recommendations: 1. I have discussed the results of my overview and impressions with the patient 2. Options for management were reviewed Code Visit Inpatient E&M: 72093 Subs Hosp L3
--- NOTE | 2017-12-16 14:40 | ECHOD_ITS ---
Reason For Study: CHF Procedure This was a 2D Doppler, Color Flow transthoracic echocardiogram. The exam was of fair technical quality due to body habitus. The study was technically difficult. Exam performed portable in patient room. Left Ventricle Normal LV size. Left ventricular systolic function is normal. The estimated ejection fraction is 70 %. Transmitral doppler flow suggestive of impaired relaxation of left ventricle. No regional wall motion abnormalities noted. Right Ventricle Normal RV size. Normal systolic function. Atria Normal left atrium. Normal right atrium. No doppler evidence for ASD. Mitral Valve There is moderate mitral annular calcification. Extension of the mitral annular calcification onto the posterior mitral valve leaflet. Trivial mitral valve insufficiency. Tricuspid Valve Normal tricuspid valve. Trivial tricuspid valve insufficiency. Unable to estimate RV systolic pressure/pulmonary artery pressure due to technically difficult study. Aortic Valve The aortic valve is not well visualized. Mild focal aortic valve calcification. Pulmonic Valve The pulmonic valve is not well visualized. Great Vessels Normal sized aortic root. Pericardium/Pleural No pericardial effusion. MMode/2D Measurements & Calculations LVIDd: 2.5 cm IVSd: 1.4 cm Ao root diam: 2.9 cm LVIDs: 1.3 cm LVPWd: 1.1 cm FS: 48.1 % LAV(MOD-sp2): 41.6 ml LVAd ap4: 26.0 cm2 SV(MOD-sp4): 51.1 ml EDV(MOD-sp4): 75.0 ml EDV(sp4-el): 77.8 ml LVAs ap4: 13.1 cm2 ESV(MOD-sp4): 23.9 ml ESV(sp4-el): 23.6 ml EF(MOD-sp4): 68.1 % EF(sp4-el): 69.7 % SV(sp4-el): 54.2 ml Time Measurements MV dec time: 0.16 sec Doppler Measurements & Calculations MV E max simon: 91.1 cm/sec Lat Peak E' Simon: 15.0 cm/sec Med Peak E' Simon: 10.1 cm/sec MV A max simon: 130.5 cm/sec E/E' lat: 6.1 E/E' med: 9.0 MV E/A: 0.70 MV V2 max: 160.8 cm/sec MV P1/2t max simon: 103.0 cm/sec Ao V2 max: 146.4 cm/sec MV max P.3 mmHg MV P1/2t: 57.5 msec Ao max P.6 mmHg MV V2 mean: 83.0 cm/sec MV dec slope: 525.0 cm/sec2 Ao V2 mean: 98.7 cm/sec MV mean P.4 mmHg MVA(P1/2t): 3.8 cm2 Ao mean P.5 mmHg MV V2 VTI: 25.7 cm Ao V2 VTI: 20.9 cm LV V1 max: 118.1 cm/sec PA V2 max: 139.6 cm/sec LV V1 max P.6 mmHg LV V1 mean P.5 mmHg LV V1 mean: 72.7 cm/sec LV V1 VTI: 16.4 cm Interpretation Summary The study was technically difficult. Left ventricular systolic function is normal. The estimated ejection fraction is 70 %. There is moderate mitral annular calcification. Extension of the mitral annular calcification onto the posterior mitral valve leaflet. Trivial mitral valve insufficiency. Trivial tricuspid valve insufficiency. Mild focal aortic valve calcification. Unable to estimate RV systolic pressure/pulmonary artery pressure due to technically difficult study. Transmitral doppler flow suggestive of impaired relaxation of left ventricle Ordering Physician: Jose Alfredo Wagner Referring Physician: Nereida Jerry Performed By: Jared Crow RCS
[2017-12-16] MEDS: Acetaminophen 325 MG Tablet 650 MG PO (17:52)
[2017-12-17] VITALS (13 sets, daily range): BP systolic 99–132; BP diastolic 42–63; PULSE 101–112; RESP 26–40; TEMP 36.6–37.3; O2SAT 94–97
[2017-12-17 06:09] LABS: Absolute Lymphocyte Count 0.26 X10^3/ul (0.83-4.51); Absolute Neutrophil Count 9.6 X10^3/uL (2.0-7.7); Differential Indicated SCAN CRITERIA MET; Eosinophil# 0.13 X10^3/uL; Eosinophils% 1.2 % (0-5); Hematocrit 24.7 % (37-47); Lymphocyte # 0.26 X10^3/ul (4.0); Lymphocyte % 2.4 % (19-41); Mean Corp Hgb Conc 32.4 g/gl (32-36); Mean Corpuscular Hgb 25.8 pg (27.0-32.0); Mean Corpuscular Volume 79.7 fL (81-99); Mean Platelet Vol. 8.8 fl (6.2-12.0); Monocyte# 0.78 X10^3/uL; Monocyte% 7.1 % (0-10); Neutrophil # 9.62 X10^3/uL (2.7-7.7); Neutrophil % 87.1 % (47-70); POSITIVE COUNT YES; POSITIVE DIFFERENTIAL YES; POSITIVE MORPHOLOGY YES; Platelet Count 284 K/mm3 (150-450); RBC Distribution Width CV 17.6 % (11.6-14.6); RBC Distribution Width SD 49.8 fl (35.1-43.9)
[2017-12-17 06:13] LABS: ALB/GLOB Ratio 0.3 RATIO (0.9-2.4); AST(SGOT) 38 U/L (15-37); Alanine Aminotransfer ALT/SGPT 24 U/L (13-56); Albumin, Serum 1.3 g/dL (3.2-5.0); Alkaline Phosphatase 266 U/L (45-117); Anion Gap 11 (5-15); BUN 38 mg/dL (7-18); BUN/Creat Ratio 18.7 RATIO (10-20); Calcium,Total 10.4 mg/dL (8.5-10.1); Chloride 102 mmol/L (98-107); Creatinine, Serum 2.03 mg/dL (0.55-1.02); EST Glomerular Filtration Rate 27 mL/min (>60); Est Glom Filt Rate - Afr Amer 33 mL/min (>60); Estimated Creatinine Clearance 28.62 ml/min; Globulin 4.1 g/dL (2.2-4.2); Glucose 88 mg/dL (74-106); Potassium 3.3 mmol/L (3.5-5.1); Protein, Total 5.4 g/dL (6.4-8.2); Sodium Level 131 mmol/L (136-145)
[2017-12-17 06:35] LABS: Differential Comment SCANNED
[2017-12-17] MEDS: predniSONE 5 MG Tablet 2.5 MG PO (07:48)
[2017-12-17 09:20] LABS: Angiotensin Convert Enzyme 82 U/L (14-82)
[2017-12-17] MEDS: Ceftriaxone 1 GM/50 ML BAG IV (10:26)
[2017-12-17] MEDS: Furosemide 40 MG/4 ML Vial IV (10:27)
[2017-12-17] MEDS: 0.9% NaCl Peripheral Flush Adult/Peds IV (10:27)
--- NOTE | 2017-12-17 12:18 | PCM.PN.REN ---
Patient Problems: Active and Suspected Problems Severe anemia (Acute) Hyponatremia (Acute) Hypercalcemia (Acute) Subjective: no new complaints - Physical Exam General: Alert, Oriented x3, Cooperative HEENT: Atraumatic, PERRLA, EOMI, Normocephalic Neck: Supple, No JVD, Negative Carotid Bruits Lungs: Clear to auscultation, Normal air movement Cardiovascular: Regular rate, No murmurs Abdomen: Bowel Sounds Present, Soft, Non Tender Extremities: No edema, Capillary Refill Less than 3 Seconds Skin: No rashes, No breakdown Musculoskeletal: No Tenderness to Palpation of Joints or Extremities Neurological: Cranial nerves II-XII grossly intact Psych/Mental Status: Normal Affect, Appropriate Vital Signs Temp Pulse Resp BP Pulse Ox 99.1 F 107 H 26 H 125/56 H 96 12/17/17 11:32 12/17/17 11:32 12/17/17 11:32 12/17/17 11:32 12/17/17 11:32 Oxygen Flow Rate (L/min) 2 Oxygen Delivery Method Nasal Cannula Weight: 98.7 kg Body Mass Index (BMI) 35.1 Intake and Output for Last 24 Hours 12/15/17 12/16/17 12/17/17 23:59 23:59 23:59 Intake Total 6301 / 6301 3000 / 3000 513 / 513 Output Total 1903 / 1903 Balance 4398 / 4398 3000 / 3000 513 / 513 Microbiology Past 72 Hours 12/14/17 02:30 Urine Culture - Preliminary Urine, Random 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 lactose electrical and instrument mechanic#2 Laboratory Tests Past 24 Hrs 12/13/17 12/15/17 12/16/17 17:33 05:15 05:10 WBC RBC Hgb Hct MCV MCH MCHC RDW RDW Differential Plt Count MPV Immature Gran % (Auto) Neut % (Auto) Lymph % (Auto) [place] % (Auto) Eos % (Auto) Baso % (Auto) Absolute Neuts (auto) Absolute Lymphs (auto) Total Counted Differential Comment Diff Path Review Reviewed Reviewed Sodium Potassium Chloride Carbon Dioxide Anion Gap BUN Creatinine Estim Creat Clear Calc Est GFR (MDRD) Af Amer Est GFR (MDRD) Non-Af BUN/Creatinine Ratio Glucose Calcium Total Bilirubin AST ALT Alkaline Phosphatase Total Protein Albumin Globulin Albumin/Globulin Ratio Angiotensin Convert Enz 82 12/17/17 12/17/17 05:20 05:20 WBC 11.0 RBC 3.10 L Hgb 8.0 L Hct 24.7 L MCV 79.7 L MCH 25.8 L MCHC 32.4 RDW 17.6 H RDW Differential 49.8 H Plt Count 284 MPV 8.8 Immature Gran % (Auto) 2.200 H Neut % (Auto) 87.1 H Lymph % (Auto) 2.4 L [place] % (Auto) 7.1 Eos % (Auto) 1.2 Baso % (Auto) 0.0 Absolute Neuts (auto) 9.6 H Absolute Lymphs (auto) 0.26 L Total Counted Not Reportable Differential Comment SCANNED Diff Path Review May foll Sodium 131 L Potassium 3.3 L Chloride 102 Carbon Dioxide 18.0 L Anion Gap 11 BUN 38 H Creatinine 2.03 H Estim Creat Clear Calc 28.62 Est GFR (MDRD) Af Amer 33 L Est GFR (MDRD) Non-Af 27 L BUN/Creatinine Ratio 18.7 Glucose 88 Calcium 10.4 H Total Bilirubin 2.80 H AST 38 H ALT 24 Alkaline Phosphatase 266 H Total Protein 5.4 L Albumin 1.3 L Globulin 4.1 Albumin/Globulin Ratio 0.3 L Angiotensin Convert Enz Medical Necessity - Tobacco Use Smoking Status: Never smoker Tobacco Use: Non-smoker Assessment/Plan All Active Problems Severe anemia (Acute) Hyponatremia (Acute) Hypercalcemia (Acute) 1. Acute kidney injury on reported chronic kidney disease. Unclear what baseline renal function is. RISA is likely due to prerenal azotemia since renal function is improving. Hypercalcemia can lead to polyuria and volume depletion as well as direct toxic effect on the kidney. ATN is also possible though treatment remains the same at this time (volume repletion). renal USG reviewed. 2. Hypercalcemia. Work up is underway. PTH is low appropriately. LUCIA level normal s/p pamidronate yesterday calcium level should come down in 1-2 days so far work up showed extensive lymphadenopathy, hepatosplenomegaly, anemia, hypercalcemia, RISA which is improving. significantly elevated protein gap. skeletal survey negative. ? lymphoma likely. transfer to [facility] today
--- NOTE | 2017-12-17 14:13 | PCM.DC.SUM ---
<Jose Alfredo Wagner - Last Filed: 12/17/17 14:18> Discharge Date and Diagnosis Date of Admission: 12/13/17 Date of Discharge: 12/17/17 - Primary Discharge Diagnosis Acute sepsis 2/2 acute UTI - GNR Hypercalcemia unclear etiology RISA improved Acute diastolic CHF exacerbation 2/2 IVF administration Microcytic anemia s/p 3 units prbc Extensive retroperitoneal and mediastinal lymphadenopathy RA Cholelithiasis HTN obesity - Secondary Discharge Diagnosis Chronic Problems Hypertension (Chronic) Rheumatoid arthritis (Chronic) Lymphadenopathy, mediastinal (Chronic) Hepatosplenomegaly (Chronic) Hospital Course and Treatment Imaging Results: 2d echo: Interpretation Summary The study was technically difficult. Left ventricular systolic function is normal. The estimated ejection fraction is 70 %. There is moderate mitral annular calcification. Extension of the mitral annular calcification onto the posterior mitral valve leaflet. Trivial mitral valve insufficiency. Trivial tricuspid valve insufficiency. Mild focal aortic valve calcification. Unable to estimate RV systolic pressure/pulmonary artery pressure due to technically difficult study. Transmitral doppler flow suggestive of impaired relaxation of left ventricle RAD/Chest PA and Lateral IMPRESSION: Left basilar atelectasis and/or infiltrate with blunting of the left costophrenic angle superimposed on a mild degree of vascular congestion and CHF. Prominence of the hilar regions bilaterally. RAD/Bone Survey Comp(Axial&Append) IMPRESSION: Degenerative findings noted in the spine. There are no lytic or sclerotic lesions in the bones. US/Gallbladder IMPRESSION: Hepatomegaly and fatty attrition of the liver. Multiple gallstones. Minimal thickening of the gallbladder wall as well as minimal pericholecystic fluid. US/Kidney and Bladder IMPRESSION: Right renal cysts. 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 Splenomegaly. CT/Abdomen/Pel W ORAL Cont Only IMPRESSION: 1. No acute findings of the abdomen or pelvis 2. Hepatomegaly and splenomegaly 3. Hyperdense appearance of the bilateral renal calyces without obstruction 4. Numerous retroperitoneal and maria ines hepatis lymph nodes. Nonspecific however, malignancy is not excluded. Consider PET/CT to further evaluate. CT/Chest without Contrast IMPRESSION: Too numerous to count bulky lymph nodes throughout the mediastinum subcarina region and right root of the left hilum as well as in the upper abdomen. This accompanies moderate to severe splenomegaly. This raises concern for neoplastic etiology such as lymphoma leukemia possible metastatic disease or widespread infection. Cholelithiasis. RAD/Chest 1 View (Portable) IMPRESSION: Hilar lymphadenopathy suggesting sarcoidosis or lymphoma. CT scan recommended for further evaluation. CT/Brain/Head without Contrast IMPRESSION: Chronic involutional changes of the brain. No hemorrhage. Consults: Jean-Claude - nephro Yoseph - pulm/critical care [facility] - oncology Operations: None Procedures: 2-D Echocardiogram Summary of Care Provided: Physical exam on day of discharge: General: Resting comfortably NAD Psych: A/Ox3 affect depressed. HEENT: PEARRLA AT NC Neck: Supple NT CV: RRR no m/t/r/g/h Resp: CTA, diminished Abd: [id number] Soft NT no guarding or rigidity Ext: DP2+= no edema Skin: W/D normal turgor, subcutaneous hard nodules forearms and ankles. Lymph/Heme: No active bleeding or adenopathy Neuro: CN2-12 intact Hospital course: The patient is a 57 year old F with a hx of RA, HTN, obesity who presented to the ER with c/o nausea vomiting diarrhea, and lethargy. She was found to have extensive retroperitoneal and mediastinal adenopathy concerning for sarcoid vs lymphoma on CT abdomen and chest, along with other acute issues including hypercalcemia, sepsis with UTI, RISA and anemia. She was admitted to PCU with renal, oncology, and pulmonary consults. She was placed on aggressive IV fluids, rocephin for UTI, and given PRBC for anemia. She developed worsening tachyea, and CXR showed fluid overload with elevated BNP, so IV fluids were backed down and she was given lasix for CHF. Echo showed preserved EF. Calcium was resistant to IV fluid administration. She was given IV pamidronate, which has not yet significantly improved her calcium. Fevers did resolve with rocephin and urine culture at this time shows GNR. RISA is improving. Stool is negative for blood, enteric panel is negative. Liver function testing also was abnormal while here, GB US was obtained showing stones. She remains tachycardic and tachypneic, hypokalemic, and hyponatremic. As she has minimally improved here, it was felt that she would benefit from transfer to a tertiary care center to better evaluate her underlying issues e.g. extensive adenopathy. She was accepted by [facility] under the care of Dr. Lara. She was transferred in stable condition. Patient was seen by Jose Alfredo Wagner PA-C under the supervision of Dr. Ward. [] Discharge Diet: - - as directed by receiving facility Discharge Activity: - - as directed by receiving facility Home Medications: Medications to take at Discharge Amlodipine [Norvasc] 5 mg PO DAILY 12/13/17 Leflunomide 10 mg PO DAILY 12/13/17 Prednisone 2.5 mg PO DAILY 12/13/17 Primary Care Physician: Colton Ramachandran [Primary Care Provider] - Please follow up with your Primary Care Physician in: 2 weeks Please Follow Up With: Syed Fisher MD When: as directed Please Follow Up With: Josue Hameed MD When: as directed Please Follow Up With: Sydney Bermeo MD When: as directed Disposition: Acute care Hospital Minutes spent on discharge:: 35 Patient Condition:: Stable Medical Necessity - Tobacco Use Smoking Status: Never smoker Tobacco Use: Non-smoker Meaningful Use Info Meaningful Use Diagnoses (Choose all that apply): CHF - AMI Done w/ Acute HI measure.: Yes - CHF LUCIA/ARB ordered at discharge?: No Reason LUCIA/ARB not ordered?: Worsening renal disease Documented LVEF (%): 70 <Nicholas Ward - Last Filed: 12/17/17 14:39> Discharge Date and Diagnosis - Secondary Discharge Diagnosis Chronic Problems Hypertension (Chronic) Rheumatoid arthritis (Chronic) Lymphadenopathy, mediastinal (Chronic) Hepatosplenomegaly (Chronic) Hospital Course and Treatment Summary of Care Provided: This patient was seen in conjunction with Jose Alfredo Wagner PA-C. I have independently interviewed and examined the patient and reviewed pertinent historical, laboratory, and other data. Please refer to Jose Alfredo Wagner PA-C note for details of this patient's presentation, findings, and recommendations. I have reviewed Jose Alfredo Wagner PA-C note and concur with documented findings. In brief, patient is a 57-year-old lady presented with generalized weakness nausea and vomiting. Found to have hepatosplenomegaly on admission. She was also found to be anemic with hemoglobin of 7. Subsequent CT demonstrated significantly no part in the mediastinum as well as abdomen subsequently admitted to regular nursing floor for further management. Patient was transferred to tertiary care center after 4 days hospital stay without significant improvement in her condition Physical Examination: GENERAL: Flat affect HEENT: Clear conjunctiva, NECK; supple, normal thyroid, CHEST: Diminished to auscultation bilaterally HEART: Regular S1 S2, ABDOMEN: soft, normoactive bowel sounds, SKIN: No Rash Assessment: 1. Symptomatic anemia requiring blood transfusion 2. Extensive lymphadenopathy with high suspicion for neoplastic process 3. Hypercalcemia 4. Hyponatremia 5. Acute kidney injury 6. Rheumatoid arthritis 7. Essential hypertension 8. Failure secondary to acute cystitis 9. Cholelithiasis 10. Obesity with BMI of 35.1 Hospital course: As elicited above Time spent on discharge 35 minutes Code Visit Inpatient E&M: 06030 Disch Hosp
--- NOTE | 2017-12-17 14:18 | DS.PCM_ITS ---
<Jose Alfredo Wagner - Last Filed: 12/17/17 14:18> Discharge Date and Diagnosis Date of Admission: 12/13/17 Date of Discharge: 12/17/17 - Primary Discharge Diagnosis Acute sepsis 2/2 acute UTI - GNR Hypercalcemia unclear etiology RISA improved Acute diastolic CHF exacerbation 2/2 IVF administration Microcytic anemia s/p 3 units prbc Extensive retroperitoneal and mediastinal lymphadenopathy RA Cholelithiasis HTN obesity - Secondary Discharge Diagnosis Chronic Problems Hypertension (Chronic) Rheumatoid arthritis (Chronic) Lymphadenopathy, mediastinal (Chronic) Hepatosplenomegaly (Chronic) Hospital Course and Treatment Imaging Results: 2d echo: Interpretation Summary The study was technically difficult. Left ventricular systolic function is normal. The estimated ejection fraction is 70 %. There is moderate mitral annular calcification. Extension of the mitral annular calcification onto the posterior mitral valve leaflet. Trivial mitral valve insufficiency. Trivial tricuspid valve insufficiency. Mild focal aortic valve calcification. Unable to estimate RV systolic pressure/pulmonary artery pressure due to technically difficult study. Transmitral doppler flow suggestive of impaired relaxation of left ventricle RAD/Chest PA and Lateral IMPRESSION: Left basilar atelectasis and/or infiltrate with blunting of the left costophrenic angle superimposed on a mild degree of vascular congestion and CHF. Prominence of the hilar regions bilaterally. RAD/Bone Survey Comp(Axial&Append) IMPRESSION: Degenerative findings noted in the spine. There are no lytic or sclerotic lesions in the bones. US/Gallbladder IMPRESSION: Hepatomegaly and fatty attrition of the liver. Multiple gallstones. Minimal thickening of the gallbladder wall as well as minimal pericholecystic fluid. US/Kidney and Bladder IMPRESSION: Right renal cysts. 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 Splenomegaly. CT/Abdomen/Pel W ORAL Cont Only IMPRESSION: 1. No acute findings of the abdomen or pelvis 2. Hepatomegaly and splenomegaly 3. Hyperdense appearance of the bilateral renal calyces without obstruction 4. Numerous retroperitoneal and maria ines hepatis lymph nodes. Nonspecific however, malignancy is not excluded. Consider PET/CT to further evaluate. CT/Chest without Contrast IMPRESSION: Too numerous to count bulky lymph nodes throughout the mediastinum subcarina region and right root of the left hilum as well as in the upper abdomen. This accompanies moderate to severe splenomegaly. This raises concern for neoplastic etiology such as lymphoma leukemia possible metastatic disease or widespread infection. Cholelithiasis. RAD/Chest 1 View (Portable) IMPRESSION: Hilar lymphadenopathy suggesting sarcoidosis or lymphoma. CT scan recommended for further evaluation. CT/Brain/Head without Contrast IMPRESSION: Chronic involutional changes of the brain. No hemorrhage. Consults: Jean-Claude - nephro Yoseph - pulm/critical care [facility] - oncology Operations: None Procedures: 2-D Echocardiogram Summary of Care Provided: Physical exam on day of discharge: General: Resting comfortably NAD Psych: A/Ox3 affect depressed. HEENT: PEARRLA AT NC Neck: Supple NT CV: RRR no m/t/r/g/h Resp: CTA, diminished Abd: [id number] Soft NT no guarding or rigidity Ext: DP2+= no edema Skin: W/D normal turgor, subcutaneous hard nodules forearms and ankles. Lymph/Heme: No active bleeding or adenopathy Neuro: CN2-12 intact Hospital course: The patient is a 57 year old F with a hx of RA, HTN, obesity who presented to the ER with c/o nausea vomiting diarrhea, and lethargy. She was found to have extensive retroperitoneal and mediastinal adenopathy concerning for sarcoid vs lymphoma on CT abdomen and chest, along with other acute issues including hypercalcemia, sepsis with UTI, RISA and anemia. She was admitted to PCU with renal, oncology, and pulmonary consults. She was placed on aggressive IV fluids, rocephin for UTI, and given PRBC for anemia. She developed worsening tachyea, and CXR showed fluid overload with elevated BNP, so IV fluids were backed down and she was given lasix for CHF. Echo showed preserved EF. Calcium was resistant to IV fluid administration. She was given IV pamidronate, which has not yet significantly improved her calcium. Fevers did resolve with rocephin and urine culture at this time shows GNR. RISA is improving. Stool is negative for blood, enteric panel is negative. Liver function testing also was abnormal while here, GB US was obtained showing stones. She remains tachycardic and tachypneic, hypokalemic, and hyponatremic. As she has minimally improved here, it was felt that she would benefit from transfer to a tertiary care center to better evaluate her underlying issues e.g. extensive adenopathy. She was accepted by [facility] under the care of Dr. Lara. She was transferred in stable condition. Patient was seen by Jose Alfredo Wagner PA-C under the supervision of Dr. Ward. [] Discharge Diet: - - as directed by receiving facility Discharge Activity: - - as directed by receiving facility Home Medications: Medications to take at Discharge Amlodipine [Norvasc] 5 mg PO DAILY 12/13/17 Leflunomide 10 mg PO DAILY 12/13/17 Prednisone 2.5 mg PO DAILY 12/13/17 Primary Care Physician: Colton Ramachandran [Primary Care Provider] - Please follow up with your Primary Care Physician in: 2 weeks Please Follow Up With: Syed Fisher MD When: as directed Please Follow Up With: Josue Hameed MD When: as directed Please Follow Up With: Sydney Bermeo MD When: as directed Disposition: Acute care Hospital Minutes spent on discharge:: 35 Patient Condition:: Stable Medical Necessity - Tobacco Use Smoking Status: Never smoker Tobacco Use: Non-smoker Meaningful Use Info Meaningful Use Diagnoses (Choose all that apply): CHF - AMI Done w/ Acute DE measure.: Yes - CHF LUCIA/ARB ordered at discharge?: No Reason LUCIA/ARB not ordered?: Worsening renal disease Documented LVEF (%): 70 <Nicholas Ward - Last Filed: 12/17/17 14:39> Discharge Date and Diagnosis - Secondary Discharge Diagnosis Chronic Problems Hypertension (Chronic) Rheumatoid arthritis (Chronic) Lymphadenopathy, mediastinal (Chronic) Hepatosplenomegaly (Chronic) Hospital Course and Treatment Summary of Care Provided: This patient was seen in conjunction with Jose Alfredo Wagner PA-C. I have independently interviewed and examined the patient and reviewed pertinent historical, laboratory, and other data. Please refer to Jose Alfredo Wagner PA-C note for details of this patient's presentation, findings, and recommendations. I have reviewed Jose Alfredo Wagner PA-C note and concur with documented findings. In brief, patient is a 57-year-old lady presented with generalized weakness nausea and vomiting. Found to have hepatosplenomegaly on admission. She was also found to be anemic with hemoglobin of 7. Subsequent CT demonstrated significantly no part in the mediastinum as well as abdomen subsequently admitted to regular nursing floor for further management. Patient was transferred to tertiary care center after 4 days hospital stay without significant improvement in her condition Physical Examination: GENERAL: Flat affect HEENT: Clear conjunctiva, NECK; supple, normal thyroid, CHEST: Diminished to auscultation bilaterally HEART: Regular S1 S2, ABDOMEN: soft, normoactive bowel sounds, SKIN: No Rash Assessment: 1. Symptomatic anemia requiring blood transfusion 2. Extensive lymphadenopathy with high suspicion for neoplastic process 3. Hypercalcemia 4. Hyponatremia 5. Acute kidney injury 6. Rheumatoid arthritis 7. Essential hypertension 8. Failure secondary to acute cystitis 9. Cholelithiasis 10. Obesity with BMI of 35.1 Hospital course: As elicited above Time spent on discharge 35 minutes Code Visit Inpatient E&M: [id number] Disch Hosp
[2017-12-17 14:59] LABS: Pathologist Review Reviewed
[2017-12-17 16:10] LABS: Immunoglobulin A 228 mg/dL (87-352); Immunoglobulin G 1366 mg/dL (700-1600); Immunoglobulin M 42 mg/dL (26-217)
[2017-12-19 08:46] LABS: Immunoglobulin E 57 IU/mL (0-100)
== END 2017-12-17 12:52 | disposition short-term general hospital (02) | DRG 871 ==
LOC: ED 09:35 → PCU 14:05
PROVIDERS: Family Medicine; Internal Medicine Nephrology; Physician Assistant; Admitting Provider Internal Medicine; Emergency Provider Emergency Medicine; Family Provider Family Medicine; PCP Family Medicine; Visit Provider Internal Medicine
DX: A41.59 Other Gram-negative sepsis (principal); I50.33 Acute on chronic diastolic (congestive) heart failure; E87.1 Hypo-osmolality and hyponatremia; N17.9 Acute kidney failure, unspecified; N39.0 Urinary tract infection, site not specified; D64.9 Anemia, unspecified; E83.52 Hypercalcemia; M06.9 Rheumatoid arthritis, unspecified; D50.9 Iron deficiency anemia, unspecified; E66.9 Obesity, unspecified; R16.2 Hepatomegaly with splenomegaly, not elsewhere classified; K80.20 Calculus of gallbladder without cholecystitis without obstruction; R59.0 Localized enlarged lymph nodes; I10 Essential (primary) hypertension; Z68.35 Body mass index [BMI] 35.0-35.9, adult; Z79.52 Long term (current) use of systemic steroids
CPT/HCPCS: 36415; 70450; 71045; 71046; 71250; 74176; 76705; 76770; 77075; 80048; 80053; 81001; 82164; 82274; 82570; 82652; 82728; 82784; 82785; 83540; 83550; 83615; 83735; 83880; 83935; 83970; 84100; 84156; 84300; 85025; 86334; 86644; 86850; 86900; 86920; 86922; 87077; 87086; 87088; 87186; 87506; 93005; 93306; 94640; 97162; 97165; 97530; 97535; 99283; J7030; J7040; P9016; A4216; J1940; J2430